=== PATIENT | male | born 1940 | race Caucasian/White ===

== ENCOUNTER 2016-11-19 12:06 | Observation (INO) | payer MEDICARE, OTHER ==
[2016-11-19] MEDS ORDERED: Sodium Chloride 0.9% 1,000 ML IV SCH ×2 (13:00→14:15)
[2016-11-19] MEDS ORDERED: Morphine 2 MG/ML Syringe IVPUSH PRN (16:25)
[2016-11-19] MEDS ORDERED: Ondansetron 4 MG/2 ML SDV IV PRN (16:25)
[2016-11-19] MEDS ORDERED: Ondansetron 4 MG Tab.DIS PO PRN (16:25)
[2016-11-19] MEDS ORDERED: Acetaminophen/oxyCODONE 325-5 MG Tab PO PRN (16:25)
[2016-11-19] MEDS ORDERED: Albuterol 0.083% 2.5 MG/3 ML Neb Soln NEB PRN (16:25)
[2016-11-19] MEDS ORDERED: Albuterol 8 GM Inhaler INH PRN (16:31)
[2016-11-19] MEDS ORDERED: guaiFENesin/Dextromethorphan 100-10 MG/5 ML Soln 5 ML Cup PO PRN (16:31)
[2016-11-19] MEDS ORDERED: Loperamide 2 MG Cap PO SCH (16:45)
[2016-11-19] MEDS ORDERED: Enoxaparin 40 MG/0.4 ML Syringe SUBCUT SCH (17:15)
--- NOTE | 2016-11-19 18:35 | PCM.HP ---
H&P History of Present Illness - General Date of Service: 11/19/16 Admit Problem/Dx: Admission Diagnosis/Problem Admission Diagnosis/Problem Enteritis Source of Information: Patient, Old Records, Provider History Limitations: Reports: Altered Mental Status, Other (lack of records) - History of Present Illness Initial Comments - Free Text/Narative: the patient is a 75-year-old male with dementia who lives in a memory care unit apparently has had a couple day history of nausea vomiting and profuse diarrhea. He was brought into the emergency department today for further evaluation and treatment. History is extremely limited by patient's dementia and a lack of records from the nursing facility. per emergency room provider, the patient has had a couple of days of nausea, vomiting, and profuse watery diarrhea. He hasn't been complaining of abdominal pain. No fevers. No record of recent antibiotics. The patient is comfort cares at the memory care unit. Polst was reviewed by myself and indicates DNR/DNI with comfort cares and only IV or IM antibiotic treatment and food and liquids by mouth and IV fluid administration. patient currently is sitting in the exam room with a tray of liquid and is taking some Jell-O and broth. Says he feels a little nauseated but much improved. He denies chest pain, shortness of breath, sinus congestion, cough, abdominal pain, lower extremity pain. Says the diarrhea has been profuse and watery. Denies fevers, chills, sweats. Back Pain Score (Numeric/FACES): 5 - Related Data Allergies/Adverse Reactions: Allergies Allergy/AdvReac Type Severity Reaction Status Date / Time acetaminophen Allergy Abdominal Verified 11/19/16 13:06 [From Darvocet-N] Pain hydrocodone Allergy Abdominal Verified 11/19/16 13:06 Pain oxycodone Allergy Abdominal Verified 11/19/16 13:06 Pain propoxyphene Allergy Abdominal Verified 11/19/16 13:06 [From Darvocet-N] Pain valdecoxib [From Bextra] Allergy Abdominal Verified 11/19/16 13:06 Pain Home Medications: Home Meds Albuterol [IJD: Ventolin HFA] 2 puff INH Q4HR PRN 11/19/16 [History] Aspirin [Ecotrin] 325 mg PO BID 11/19/16 [History] Citalopram [Citalopram HBr] 20 mg PO DAILY 11/19/16 [History] Dextromethorphan/guaiFENesin [Robitussin DM] 10 ml PO ASDIRECTED PRN 11/19/16 [ History] Donepezil HCl [Aricept] 10 mg PO DAILY 11/19/16 [History] Furosemide [Lasix] 40 mg PO DAILY 11/19/16 [History] Ketotifen [Ketotifen 0.025% Ophth Soln] 1 drop EYEBOTH BID 11/19/16 [History] Levothyroxine [Synthroid] 50 mcg PO DAILY 11/19/16 [History] Loperamide [Imodium] 2 mg PO ASDIRECTED MDD 4 11/19/16 [History] Omeprazole 20 mg PO BID 11/19/16 [History] PHENobarbital [Phenobarbital] 97.2 mg PO BID 11/19/16 [History] Potassium Chloride [Klor-Con 10] 20 meq PO DAILY 11/19/16 [History] Simvastatin [Zocor] 40 mg PO DAILY 11/19/16 [History] risperiDONE [Risperdal] 0.25 mg PO BID 11/19/16 [History] Past Medical History Cardiovascular History: Reports: High Cholesterol Respiratory History: Reports: COPD Gastrointestinal History: Reports: GI Bleed Neurological History: Reports: Alzheimers Disease Psychiatric History: Reports: Anxiety, Depression, Other (See Below) Other Psychiatric History: delusional disorders Endocrine/Metabolic History: Reports: Hypothyroidism - Infectious Disease History Infectious Disease History: Reports: Chicken Pox - Past Surgical History Cardiovascular Surgical History: Reports: None Respiratory Surgical History: Reports: None Neurological Surgical History: Reports: None Social & Family History - Family History Family Medical History: Noncontributory - Tobacco Use Smoking Status *Q: Former Smoker Used Tobacco, but Quit: Yes Month Tobacco Last Used: November Second Hand Smoke Exposure: No - Caffeine Use Caffeine Use: Reports: None - Recreational Drug Use Recreational Drug Use: No H&P Review of Systems - Review of Systems: Review Of Systems: ROS reveals no pertinent complaints other than HPI. Exam - Exam Exam: See Below - Vital Signs Vital Signs: Last Vital Signs Temp 37.2 C 11/19/16 16:25 Pulse 95 11/19/16 16:25 Resp 20 11/19/16 16:25 BP 138/72 11/19/16 16:25 Pulse Ox 92 L 11/19/16 16:25 Weight: 100.244 kg - Exam General: Alert, Cooperative, Other (oriented to person only. Does not know the year, month, date, or where he is at.) HEENT: PERRLA, Mucosa Moist & [place], Pupils Equal, Pupils Reactive Neck: Supple Lungs: Clear to Auscultation, Normal Respiratory Effort Cardiovascular: Regular Rate, Regular Rhythm, Normal S1, Normal S2 GI/Abdominal Exam: Normal Bowel Sounds, Soft, Non-Tender, No Distention Extremities: Pedal Edema (trace edema. Currently has support hose in place.) Skin: Warm, Dry, Intact Psychiatric: Alert, Normal Affect, Normal Mood - Patient Data Result Diagrams: 11/19/16 13:40 11/19/16 13:40 *Q Meaningful Use (ADM) - VTE *Q VTE Criteria *Q: - Stroke *Q Stroke Criteria *Q: - AMI *Q AMI Criteria *Q: - Problem List (1) Gastroenteritis SNOMED Code(s): 86688840 ICD Code: K52.9 - NONINFECTIVE GASTROENTERITIS AND COLITIS, UNSPECIFIED Status: Acute Current Visit: Yes Problem Details: patient appears to be recovering well with IV fluids and currently taking by mouth liquids. C. difficile, stool culture, currently pending. Continue to monitor. Will watch IV fluids for fluid overload. (2) Dementia SNOMED Code(s): 19541919 ICD Code: F03.90 - UNSPECIFIED DEMENTIA WITHOUT BEHAVIORAL DISTURBANCE Status: Acute Current Visit: Yes Problem Details: continue home medications. I do question if a few of these medications might be discontinued such as simvastatin and the aspirin given the patient's CODE STATUS and preference for comfort cares as simvastatin is not likely contributing anything to his overall status. (3) Depression with anxiety SNOMED Code(s): 460140366 ICD Code: F41.8 - OTHER SPECIFIED ANXIETY DISORDERS Status: Acute Current Visit: Yes Problem Details: currently stable. Continue to monitor. (4) Edema SNOMED Code(s): 567697745 ICD Code: R60.9 - EDEMA, UNSPECIFIED Status: Acute Current Visit: Yes Problem Details: currently stable. Monitor with fluid intake. (5) GERD (gastroesophageal reflux disease) SNOMED Code(s): 846954282 ICD Code: K21.9 - GASTRO-ESOPHAGEAL REFLUX DISEASE WITHOUT ESOPHAGITIS Status: Acute Current Visit: Yes Problem Details: restart omeprazole when patient is able to tolerate. (6) Hyperlipidemia SNOMED Code(s): 93194384 ICD Code: E78.5 - HYPERLIPIDEMIA, UNSPECIFIED Status: Acute Current Visit : Yes Problem Details: Should no longer be treated given the patient's current status and comfort cares request. We'll discuss this with family at the first opportunity. Problem List Initiated/Reviewed/Updated: Yes Orders Last 24hrs: Active Orders 24 hr Category Date Time Status Oxygen Therapy [RC] PRN Care 11/19/16 16:25 Active RT Aerosol Therapy [RC] ASDIRECTED Care 11/19/16 16:30 Active VTE/DVT Education [RC] Per Unit Routine Care 11/19/16 16:25 Active Vital Signs [RC] Q4H Care 11/19/16 16:25 Active Clear Liquid Diet [DIET] Diet 11/19/16 Dinner Ordered COMPREHENSIVE METABOLIC PN,CMP [CHEM] AM Lab 11/20/16 05:11 Ordered MAGNESIUM [CHEM] Routine Lab 11/19/16 16:25 Ordered TROPONIN I [CHEM] Stat Lab 11/19/16 16:25 Ordered Acetaminophen/oxyCODONE [Percocet 325-5 MG] Med 11/19/16 16:25 Active 1 tab PO Q4H PRN Albuterol [Proventil Neb Soln] Med 11/19/16 16:25 Pending 2.5 mg NEB Q2H PRN Albuterol [Ventolin HFA] Med 11/19/16 16:31 Ordered DOSE gm INH Q4HR PRN Aspirin [Ecotrin] Med 11/19/16 21:00 Ordered 325 mg PO BID Citalopram [Celexa] Med 11/20/16 09:00 Ordered 20 mg PO DAILY Dextromethorphan/guaiFENesin [Robitussin DM] Med 11/19/16 16:31 Ordered 10 ml PO ASDIRECTED PRN Donepezil [Aricept] Med 11/19/16 16:45 Ordered 10 mg PO DAILY Enoxaparin [Lovenox] Med 11/19/16 17:15 Active 40 mg SUBCUT DAILY Ketotifen [Ketotifen 0.025% Ophth Soln] Med 11/19/16 16:45 Ordered DOSE ml EYEBOTH BID Lactated Ringers [Ringers, Lactated] 1,000 ml Med 11/19/16 18:00 Pending IV 5XDAY Levothyroxine [Synthroid] Med 11/19/16 16:45 Ordered 50 mcg PO DAILY Loperamide [Imodium] Med 11/19/16 16:45 Ordered 2 mg PO ASDIRECTED Morphine Med 11/19/16 16:25 Active 1 mg IVPUSH Q2H PRN Omeprazole [Omeprazole] Med 11/19/16 16:45 Ordered 20 mg PO BID Ondansetron [Zofran ODT] Med 11/19/16 16:25 Ordered 4 mg PO Q6H PRN Ondansetron [Zofran] Med 11/19/16 16:25 Active 4 mg IV Q6H PRN PHENobarbital [Phenobarbital] Med 11/19/16 16:45 Ordered 97.2 mg PO BID Potassium Chloride [Klor-Con 10] Med 11/19/16 16:45 Ordered 20 meq PO DAILY Simvastatin [Zocor] Med 11/20/16 09:00 Ordered 40 mg PO DAILY risperiDONE [RisperiDAL] Med 11/19/16 16:45 Ordered 0.25 mg PO BID Resuscitation Status Routine Resus Stat 11/19/16 16:25 Ordered Medication Orders Albuterol (Proventil Neb Soln) 2.5 mg NEB Q2H PRN PRN Reason: Shortness Of Breath/wheezing Albuterol (Ventolin Hfa) gm INH Q4HR PRN PRN Reason: Cough Aspirin (Ecotrin) 325 mg PO BID [facility] Citalopram Hydrobromide (Celexa) 20 mg PO DAILY [facility] Donepezil HCl (Aricept) 10 mg PO DAILY [facility] Enoxaparin Sodium (Lovenox) 40 mg SUBCUT DAILY [facility] Guaifenesin/Phenylephrine HCl (Robitussin Dm) 10 ml PO ASDIRECTED PRN PRN Reason: Cough Sodium Chloride (Normal Saline) 1,000 mls @ 999 mls/hr IV ASDIRECTED [facility] Last Admin: 11/19/16 13:00 Dose: 999 mls/hr Sodium Chloride (Normal Saline) 1,000 mls @ 200 mls/hr IV ASDIRECTED [facility] Last Admin: 11/19/16 14:12 Dose: 200 mls/hr Lactated Ringer's (Ringers, Lactated) 1,000 mls @ 150 mls/hr IV 5XDAY [facility] Ketotifen Fumarate (Ketotifen 0.025% Ophth Soln) ml EYEBOTH BID [facility] Levothyroxine Sodium (Synthroid) 50 mcg PO DAILY [facility] Loperamide HCl (Imodium) 2 mg PO ASDIRECTED [facility] Morphine Sulfate (Morphine) 1 mg IVPUSH Q2H PRN PRN Reason: Pain (severe 7-10) Non-Formulary Medication (Omeprazole [Omeprazole]) 20 mg PO BID [facility] Non-Formulary Medication (Phenobarbital [Phenobarbital]) 97.2 mg PO BID [facility] Ondansetron HCl (Zofran Odt) 4 mg PO Q6H PRN PRN Reason: nausea, able to take PO Ondansetron HCl (Zofran) 4 mg IV Q6H PRN PRN Reason: Nausea/Vomiting Oxycodone/Acetaminophen (Percocet 325-5 Mg) 1 tab PO Q4H PRN PRN Reason: Pain (moderate 4-6) Potassium Chloride (Klor-Con 10) 20 meq PO DAILY [facility] Risperidone (Risperidal) 0.25 mg PO BID [facility] Simvastatin (Zocor) 40 mg PO DAILY [facility] Assessment/Plan Comment:: CODE STATUS reviewed from the patient's POLST documented and the patient is Comfort Care is DNR/DNI and IV/IM antibiotic treatment for comfort as well as IV fluid administration for comfort.
[2016-11-19] MEDS: Lactated Ringers 1,000 ML IV SCH (20:05)
[2016-11-19] MEDS: OMEPRAZOLE 20 MG PO SCH ×2 (20:21→21:04)
[2016-11-19] MEDS: DONEPEZIL 10 MG PO SCH ×2 (20:38→20:41)
[2016-11-19] MEDS: RISPERIDONE 0.25 MG PO SCH ×2 (20:44→21:06)
[2016-11-19] MEDS: POTASSIUM CHLORIDE 10 MEQ PO SCH (20:56)
[2016-11-19] MEDS ORDERED: Aspirin 325 MG Tab.EC PO SCH ×2 (21:00)
[2016-11-19] MEDS: Ketotifen 0.025% Ophth Soln 5 ML Bottle EYEBOTH SCH ×2 (22:18→22:20)
[2016-11-19] MEDS ORDERED: Pantoprazole 40 MG Vial IVPUSH ONE (22:43)
[2016-11-20] MEDS: Lactated Ringers 1,000 ML IV SCH (03:19)
--- NOTE | 2016-11-20 03:59 | ER ---
DATE SEEN: 11/19/2016 HISTORY OF PRESENT ILLNESS: This assisted living patient comes into the hospital with a history of diarrhea, two days duration, and vomiting once. Had diarrhea since last night. The patient was seen at 1313 hours. He has mild dementia. He is a poor historian. He was able to tell me about his diarrhea. He has depression, congestive heart failure, hypothyroidism treated, seizure disorder treated, COPD treated, dyslipidemia treated. ALLERGIES: Hydrocodone, oxycodone, propoxyphene, and valdecoxib for bone pain. SOCIAL HISTORY: The patient is retired. REVIEW OF SYSTEMS: I was unable to obtain review of systems from him. PHYSICAL EXAMINATION: GENERAL: Alert man who does respond to questions. Has a gravelly voice. HEENT: His head is in flexion. Hearing is slightly decreased. Pharynx without abnormality. Lower teeth are absent. NECK: No jugular venous distention. No tenderness in neck. No cervical adenopathy. No bruits. LUNGS: There are coarse breath sounds. Rales at the bases posteriorly. Otherwise clear anteriorly and posteriorly. HEART: S1, S2. No irregular rate and rhythm. ABDOMEN: Soft. No abdominal discomfort, he has question of right upper quadrant and right lower quadrant but he has left upper quadrant and left lower quadrant mild discomfort. Mild guarding. No rebound. Abdomen not distended. Occasional low-pitched tingle. No pipe tapping sounds. LOWER EXTREMITIES: Without edema. Deep tendon reflexes hypoactive in upper and lower extremities. He can extend his arm. Hand drug room operator is good. Hearing is slightly decreased but intact. Gag is intact. No paresis or weakness of upper and lower extremities. LABORATORY FINDINGS: Calcium is decreased to 7.9, albumin is 3.7. So the calcium is truly low, rule out PTH abnormality. His BUN and creatinine ratio is elevated at 27.5. BUN is 22, creatinine is 0.8. Sodium 134, potassium 3.4, chloride 95, bicarb 28, and glucose 112. White count 11,800, PMNs 89, lymphocytes 3, bandemia noted at 5. He had a CAT scan performed and this demonstrated probable infiltrates of the liver, post cholecystectomy; normal common bile duct, post cholecystectomy. (ultrasound performed on 02/18/2015 and he has had a previous transthoracic echocardiogram performed 07/01/2015 demonstrated ejection fraction 55% to 60%, normal right ventricular systolic function, left ventricular diastolic function is mildly abnormal, grade 1; mild mitral valvular annular calcification; mitral regurgitation. Mild pulmonary hypertension. Right ventricular systolic pressure 40-45 mmHg, inferior vena cava size normal, and collapsibility is less than 50%. ASSESSMENT: 1. Mild dehydration. 2. Gastroenteritis. PLAN: Since the patient is at assisted living, he may not be able to have IVs where he lives (will be placed in hospital for further diuresing and treatment). Calcium 7.9. We cannot rule out hypoparathyroidism. No suggestion of anaerobic abnormality as his lactate is 1.2. Continue his aspirin. Continue IV therapy and Zofran. Status discussed with Dr. Mata, hospitalist. Other diagnoses cholecystectomy, hyponatremia, hypokalemia, dehydration, bandemia of 5%. /[id number] ZARINA/JAIRO
[2016-11-20] MEDS ORDERED: Prochlorperazine 25 MG Supp RECTAL PRN (07:55)
[2016-11-20] MEDS ORDERED: Pantoprazole 40 MG Vial IVPUSH SCH (08:00)
[2016-11-20] MEDS: LEVOTHYROXINE 50 MCG PO SCH (08:26)
[2016-11-20] MEDS: OMEPRAZOLE 20 MG PO SCH (08:26)
[2016-11-20] MEDS: DONEPEZIL 10 MG PO SCH (08:27)
[2016-11-20] MEDS: Ketotifen 0.025% Ophth Soln 5 ML Bottle EYEBOTH SCH ×2 (08:28→21:17)
[2016-11-20] MEDS: CITALOPRAM 20 MG PO SCH (08:28)
[2016-11-20] MEDS: RISPERIDONE 0.25 MG PO SCH ×2 (08:30→21:23)
[2016-11-20] MEDS: POTASSIUM CHLORIDE 10 MEQ PO SCH (08:40)
[2016-11-20] MEDS: Dextrose 5%-0.9% NaCl with KCl 1,000 ML IV SCH ×2 (08:46→19:15)
[2016-11-20] MEDS ORDERED: SIMVASTATIN 40 MG PO SCH (09:00)
[2016-11-20] MEDS ORDERED: Pantoprazole 40 MG Vial IVPUSH ONE (16:15)
--- NOTE | 2016-11-20 17:19 | PCM.PN ---
- General Info Date of Service: 11/20/16 Subjective Update: Patient feeling better. He had a lot of vomiting this morning and had an episode of hematemesis or coffee-ground emesis which was Hemoccult positive. He is unhappy about not being able to eat. Had received Lovenox and I suspect this was the reason for his coffee-ground emesis. Discontinued both Lovenox and aspirin and patient is currently nothing by mouth with sips and ice chips only. He's had no further vomiting. He denies abdominal pain at this time. Denies chest pain and shortness of breath. No fevers. Functional Status: Reports: Pain Controlled, Ambulating, Urinating - Patient Data Vitals - Most Recent: Last Vital Signs Temp 36.6 C 11/20/16 13:00 Pulse 87 11/20/16 13:00 Resp 20 11/20/16 13:00 BP 156/86 H 11/20/16 13:00 Pulse Ox 92 L 11/20/16 13:00 Weight - Most Recent: 100.244 kg I&O - Last 24 Hours: Intake & Output 11/20/16 11/20/16 11/20/16 06:59 14:59 22:59 Intake Total 1306 Output Total 200 225 Balance 1106 -225 Lab Results Last 24 Hours: Laboratory Results - last 24 hr 11/19/16 11/19/16 11/20/16 Range/Units 19:25 19:25 06:45 Sodium 137 (135-145) mmol/L Potassium 3.2 L (3.5-5.3) mmol/L Chloride 103 D (100-110) mmol/L Carbon Dioxide 28 (23-29) mmol/L BUN 24 H (8-23) mg/dL Creatinine 0.6 (0.6-1.3) mg/dL Est Cr Clr Drug Dosing 102.92 mL/min Estimated GFR (MDRD) > 60 (>60) BUN/Creatinine Ratio 40.0 H (9-20) Glucose 110 (80-116) mg/dL Calcium 7.6 L (8.6-10.2) mg/dL Magnesium 1.9 (1.8-2.5) mg/dL Total Bilirubin 0.4 (0.1-1.3) mg/dL AST 22 D (5-27) IU/L ALT 19 D (14-26) IU/L Alkaline Phosphatase 74 (56-112) IU/L Troponin I < 0.01 L (0.02-0.06) NG/ML Total Protein 7.0 (6.0-8.0) g/dL Albumin 3.1 L (3.2-4.6) g/dL Globulin 3.9 g/dL Albumin/Globulin Ratio 0.8 Siddhartha Results Last 24 Hours: Microbiology 11/19/16 22:24 Gastric Occult Blood - Final Gastric Fluid Med Orders - Current: Current Medications Albuterol (Proventil Neb Soln) 2.5 mg NEB Q2H PRN PRN Reason: Shortness Of Breath/wheezing Albuterol (Ventolin Hfa) 0 gm INH Q4H PRN PRN Reason: Cough Citalopram Hydrobromide (Celexa) 20 mg PO DAILY [facility] Last Admin: 11/20/16 08:28 Dose: 20 mg Donepezil HCl (Aricept) 10 mg PO DAILY [facility] Last Admin: 11/20/16 08:27 Dose: 10 mg Guaifenesin/Phenylephrine HCl (Robitussin Dm) 10 ml PO ASDIRECTED PRN PRN Reason: Cough Potassium Chloride/Dextrose/Sod Cl (D5 Ns With 20 Meq Kcl) 1,000 mls @ 100 mls/ hr IV ASDIRECTED [facility] Last Admin: 11/20/16 08:46 Dose: 100 mls/hr Ketotifen Fumarate (Ketotifen 0.025% Ophth Soln) 0 ml EYEBOTH BID [facility] Last Admin: 11/20/16 08:28 Dose: 1 drop Levothyroxine Sodium (Synthroid) 50 mcg PO ACBREAKFAST [facility] Last Admin: 11/20/16 08:26 Dose: 50 mcg Loperamide HCl (Imodium) 2 mg PO ASDIRECTED [facility] Morphine Sulfate (Morphine) 1 mg IVPUSH Q2H PRN PRN Reason: Pain (severe 7-10) Last Admin: 11/20/16 08:42 Dose: 1 mg (Phenobarbital [ Phenobarbital] 97.2 Mg)Own Med 97.2 mg PO BID [facility] Last Admin: 11/20/16 08:29 Dose: 97.2 mg Ondansetron HCl (Zofran Odt) 4 mg PO Q6H PRN PRN Reason: nausea, able to take PO Ondansetron HCl (Zofran) 4 mg IV Q6H PRN PRN Reason: Nausea/Vomiting Last Admin: 11/19/16 22:07 Dose: 4 mg Oxycodone/Acetaminophen (Percocet 325-5 Mg) 1 tab PO Q4H PRN PRN Reason: Pain (moderate 4-6) Pantoprazole Sodium (Protonix Iv) 40 mg IVPUSH Q24H [facility] Potassium Chloride (Klor-Con 10) 20 meq PO DAILY [facility] Last Admin: 11/20/16 08:40 Dose: 20 meq Prochlorperazine Maleate (Compro) 25 mg RECTAL Q12H PRN PRN Reason: Vomiting Risperidone (Risperidal) 0.25 mg PO BID [facility] Last Admin: 11/20/16 08:30 Dose: 0.25 mg Simvastatin (Zocor) 40 mg PO DAILY [facility] Last Admin: 11/20/16 08:30 Dose: 40 mg Discontinued Medications Aspirin (Ecotrin) 325 mg PO BID [facility] Aspirin (Ecotrin) 325 mg PO BID [facility] Last Admin: 11/19/16 22:07 Dose: Not Given Enoxaparin Sodium (Lovenox) 40 mg SUBCUT DAILY [facility] Last Admin: 11/19/16 20:19 Dose: 40 mg Sodium Chloride (Normal Saline) 1,000 mls @ 999 mls/hr IV ASDIRECTED [facility] Last Admin: 11/19/16 13:00 Dose: 999 mls/hr Sodium Chloride (Normal Saline) 1,000 mls @ 200 mls/hr IV ASDIRECTED [facility] Last Admin: 11/19/16 14:12 Dose: 200 mls/hr Lactated Ringer's (Ringers, Lactated) 1,000 mls @ 150 mls/hr IV ASDIRECTED [facility] Last Admin: 11/20/16 03:19 Dose: 150 mls/hr (Omeprazole [ Omeprazole] 20 Mg) Own Med 20 mg PO BID [facility] Last Admin: 11/20/16 08:26 Dose: 20 mg Pantoprazole Sodium (Protonix Iv) 40 mg IVPUSH ONETIME ONE Stop: 11/19/16 22:44 Last Admin: 11/19/16 23:41 Dose: 40 mg Pantoprazole Sodium (Protonix Iv) 40 mg IVPUSH Q24H [facility] Pantoprazole Sodium (Protonix Iv) 40 mg IVPUSH ONETIME ONE Stop: 11/20/16 16:16 Last Admin: 11/20/16 17:06 Dose: 40 mg - Exam General: Alert, Cooperative, No Acute Distress HEENT: Pupils Equal, Pupils Reactive Neck: Supple Lungs: Clear to Auscultation, Normal Respiratory Effort Cardiovascular: Regular Rate, Regular Rhythm, No Murmurs GI/Abdominal Exam: Normal Bowel Sounds, Soft, Non-Tender, No Distention Back Exam: Normal Inspection Extremities: Normal Inspection, No Pedal Edema Peripheral Pulses: 0: Carotid (R) Skin: Warm, Dry, Intact Psy/Mental Status: Alert - Problem List & Annotations (1) Coffee ground emesis SNOMED Code(s): 460987388 Code(s): K92.0 - HEMATEMESIS Status: Acute Current Visit: Yes Annotation/Comment:: Suspect this was related to the patient's previous aspirin use and may have actually caused his presenting complaint. Lovenox has unmasked this as well. Patient may have an ulcer as he does tell me today that he has frequent heartburn. Recommended PPI, no serial hemoglobins, no coags, given patient's comfort care status will not consult surgery but did recommend nothing by mouth today and we will restart clears and Carafate in the morning. (2) Gastroenteritis SNOMED Code(s): 29682116 Code(s): K52.9 - NONINFECTIVE GASTROENTERITIS AND COLITIS, UNSPECIFIED Status: Acute Current Visit: Yes Annotation/Comment:: No further emesis since nothing by mouth status. Continue to monitor. C. difficile negative. (3) Dementia SNOMED Code(s): 59592132 Code(s): F03.90 - UNSPECIFIED DEMENTIA WITHOUT BEHAVIORAL DISTURBANCE Status: Acute Current Visit: Yes Annotation/Comment:: continue home medications. Plan to discontinue medications not in-line with comfort measures. (4) Depression with anxiety SNOMED Code(s): 655979296 Code(s): F41.8 - OTHER SPECIFIED ANXIETY DISORDERS Status: Acute Current Visit: Yes Annotation/Comment:: currently stable. Continue to monitor. (5) Edema SNOMED Code(s): 278137610 Code(s): R60.9 - EDEMA, UNSPECIFIED Status: Acute Current Visit: Yes Annotation/Comment:: currently stable. Monitor with fluid intake. (6) GERD (gastroesophageal reflux disease) SNOMED Code(s): 429323753 Code(s): K21.9 - GASTRO-ESOPHAGEAL REFLUX DISEASE WITHOUT ESOPHAGITIS Status: Acute Current Visit: Yes Annotation/Comment:: Patient on IV PPI currently. (7) Hyperlipidemia SNOMED Code(s): 80002142 Code(s): E78.5 - HYPERLIPIDEMIA, UNSPECIFIED Status: Acute Current Visit : Yes Annotation/Comment:: Should no longer be treated given the patient's current status and comfort cares request. Patient is [place] of the state with court appointed guardian. We'll discuss this tomorrow with the guardian. (8) Hx of seizure disorder SNOMED Code(s): 393741792 Code(s): Z86.69 - PERSONAL HISTORY OF DIS OF THE NERVOUS SYS AND SENSE ORGANS Status: Acute Current Visit: Yes Annotation/Comment:: Found in the patient's previous records from outpatient that he has at some point in the past had a seizure and this is why he is on the phenobarbital. Was held last night but given this morning. No evidence in his chart that he had had a seizure in his history in the last few years. - Problem List Review Problem List Initiated/Reviewed/Updated: Yes - My Orders Last 24 Hours: My Active Orders 11/19/16 18:44 Code Status [Resuscitation Status] Routine 11/20/16 07:55 Prochlorperazine [Compro] 25 mg RECTAL Q12H PRN 11/20/16 08:00 Dextrose 5%-0.9% NaCl with KCl [D5 NS with 20 mEq KCl] 1,000 ml IV ASDIRECTED 11/20/16 Lunch NPO [Nothing Per Oral Diet] [DIET] 11/21/16 08:00 Pantoprazole [ProTONIX IV] 40 mg IVPUSH Q24H - Plan Plan:: CODE STATUS reviewed from the patient's POLST documented and the patient is Comfort Care is DNR/DNI and IV/IM antibiotic treatment for comfort as well as IV fluid administration for comfort.
[2016-11-21] MEDS: Dextrose 5%-0.9% NaCl with KCl 1,000 ML IV SCH (05:30)
[2016-11-21] MEDS ORDERED: Pantoprazole 40 MG Vial IVPUSH SCH (08:00)
[2016-11-21] MEDS: LEVOTHYROXINE 50 MCG PO SCH (09:18)
[2016-11-21] MEDS: CITALOPRAM 20 MG PO SCH (09:20)
[2016-11-21] MEDS: Ketotifen 0.025% Ophth Soln 5 ML Bottle EYEBOTH SCH (09:22)
[2016-11-21] MEDS: POTASSIUM CHLORIDE 10 MEQ PO SCH (09:24)
[2016-11-21] MEDS: RISPERIDONE 0.25 MG PO SCH (09:26)
--- NOTE | 2016-11-21 11:10 | CR ---
INDICATION: Vomiting. CHEST: AP upright view of the chest 11/19/2016 was compared with 09/23/2007, and revealed elevation of the left hemidiaphragm compared with the previous study. This could be on the basis of subpulmonic effusion, or possibly simply a poor inspiration and should be correlated clinically. The heart appears enlarged emphasized by the poor inspiration. The aorta is tortuous with calcification in the arch. No free air was identified underneath the hemidiaphragm leaves. A definite active infiltrate or effusion was not identified. IMPRESSION: No definite acute process. However, what appears to be a poor inspiration is present with elevation of the left hemidiaphragm likely on the basis of the poor inspiration, but cannot exclude subpulmonic effusion on the left. Findings should be correlated clinically. If effusion is suspected clinically, lateral decubitus chest x-ray with the left side down is recommended for further evaluation. MTDD
--- NOTE | 2016-11-21 14:57 | PCM.DCSUM1 ---
Discharge Summary - Hospital Course Brief History: the patient is a 75-year-old male presented to the emergency department from the [facility] with nausea vomiting and diarrhea. He was admitted for what was presumed to be an infectious or viral gastroenteritis but was found to be guaiac positive and after having received Lovenox for DVT prophylaxis had coffee ground emesis. He was made nothing by mouth and treated for gastritis/ulcer and did very well with this. Because of his comfort care status, no further imaging or scoping was performed. On the day of discharge his diet was advanced without difficulty and he was ready for discharge. - Discharge Data Discharge Date: 11/21/16 Discharge Disposition: DC/Tfer to [place] [id number] Condition: Fair - Discharge Diagnosis/Problem(s) (1) Coffee ground emesis SNOMED Code(s): 829033972 ICD Code: K92.0 - HEMATEMESIS Status: Acute Current Visit: Yes Problem Details: Resolved. Patient tolerating po intake. Stop ASA, discharge on Carafate and PPI therapy for a month. Resume regular diet. (2) Gastroenteritis SNOMED Code(s): 46625723 ICD Code: K52.9 - NONINFECTIVE GASTROENTERITIS AND COLITIS, UNSPECIFIED Status: Acute Current Visit: Yes Problem Details: Unclear whether infectious (viral) or due to ulcer/gastritis. Tx as above. (3) Dementia SNOMED Code(s): 56041792 ICD Code: F03.90 - UNSPECIFIED DEMENTIA WITHOUT BEHAVIORAL DISTURBANCE Status: Acute Current Visit: Yes Problem Details: continue home medications. Plan to discontinue medications not in-line with comfort measures. Qualifiers: Dementia type: Alzheimer's disease (4) Depression with anxiety SNOMED Code(s): 711611074 ICD Code: F41.8 - OTHER SPECIFIED ANXIETY DISORDERS Status: Acute Current Visit: Yes Problem Details: currently stable. Continue to monitor. (5) Edema SNOMED Code(s): 424165134 ICD Code: R60.9 - EDEMA, UNSPECIFIED Status: Acute Current Visit: Yes Problem Details: currently stable. Monitor with fluid intake. (6) GERD (gastroesophageal reflux disease) SNOMED Code(s): 187141048 ICD Code: K21.9 - GASTRO-ESOPHAGEAL REFLUX DISEASE WITHOUT ESOPHAGITIS Status: Acute Current Visit: Yes Problem Details: Patient on IV PPI currently. (7) Hyperlipidemia SNOMED Code(s): 38697125 ICD Code: E78.5 - HYPERLIPIDEMIA, UNSPECIFIED Status: Acute Current Visit : Yes Problem Details: Should no longer be treated given the patient's current status and comfort cares request. Patient is [place] of the state with court appointed guardian. We'll discuss this tomorrow with the guardian. (8) Hx of seizure disorder SNOMED Code(s): 396257569 ICD Code: Z86.69 - PERSONAL HISTORY OF DIS OF THE NERVOUS SYS AND SENSE ORGANS Status: Acute Current Visit: Yes Problem Details: Found in the patient's previous records from outpatient that he has at some point in the past had a seizure and this is why he is on the phenobarbital. Discussed with POA that this could be investigated further and see if really need phenobarbital. This can be done outpt. - Patient Summary/Data Hospital Course: after the Lovenox was stopped and the patient made nothing by mouth, the patient did well throughout his hospital course. No further nausea or vomiting. No diarrhea. No date of discharge sitting up in the chair, tolerating clear liquids without difficulty. Vital signs were stable. He denied chest pain or shortness of breath. He denied abdominal pain, nausea, or vomiting. He was able to ambulate with assistance because of the IV pole. On exam, patient is in no distress. Visit reticulocyte, normocephalic. Pupils round and reactive. Lungs clear to auscultation, heart tones regular with normal rate and rhythm, no murmurs. Abdomen is soft, nontender, nondistended. Bowel sounds are active. No pedal edema. Assessment/plan: Nausea, vomiting, diarrhea likely secondary to gastritis/ulcer secondary to high -dose aspirin therapy. Recommend we stop the aspirin. Patient will be discharged home on twice a day PPI therapy and Carafate 4 times a day to be taken for 3 days. After that point the Carafate can be stopped and he can continue his home dose of PPI. #2 hyperlipidemia. Given the patient's dementia would recommend we stop his statin and I discussed this with his power of senior trial attorney and she was in agreement. #3 question whether or not the patient still is benefiting from the phenobarbital. Was unable to get a clear picture of what his seizure history was ablated see note of convulsions on a previous problem list. We'll defer this question to the outpatient provider. #4 patient will return to his memory care facility with his continued CODE STATUS of DNR/DNI and comfort cares. - Patient Instructions Diet: Usual Diet as Tolerated Activity: As Tolerated - Discharge Plan Prescriptions/Med Rec: Sucralfate [Carafate] 1 gm PO ACBED 30 Days #120 tab Home Medications: Home Meds Albuterol [IJD: Ventolin HFA] 2 puff INH Q4HR PRN 11/19/16 [History] Citalopram [Citalopram HBr] 20 mg PO DAILY 11/19/16 [History] Dextromethorphan/guaiFENesin [Robitussin DM] 10 ml PO ASDIRECTED PRN 11/19/16 [ History] Donepezil HCl [Aricept] 10 mg PO DAILY 11/19/16 [History] Furosemide [Lasix] 40 mg PO DAILY 11/19/16 [History] Ketotifen [Ketotifen 0.025% Ophth Soln] 1 drop EYEBOTH BID 11/19/16 [History] Levothyroxine [Synthroid] 50 mcg PO DAILY 11/19/16 [History] Loperamide [Imodium] 2 mg PO ASDIRECTED MDD 4 11/19/16 [History] Omeprazole 20 mg PO BID 11/19/16 [History] PHENobarbital [Phenobarbital] 97.2 mg PO BID 11/19/16 [History] Potassium Chloride [Klor-Con 10] 20 meq PO DAILY 11/19/16 [History] risperiDONE [Risperdal] 0.25 mg PO BID 11/19/16 [History] Sucralfate [Carafate] 1 gm PO ACBED 30 Days #120 tab 11/21/16 [Rx] Forms: ED Department Discharge Referrals: Ottoniel Diaz MD [Primary Care Provider] - - Discharge Summary/Plan Comment DC Time >30 min.: Yes - Patient Data Vitals - Most Recent: Last Vital Signs Temp 36.9 C 11/21/16 02:30 Pulse 69 11/21/16 12:00 Resp 17 11/21/16 12:00 BP 154/82 H 11/21/16 12:00 Pulse Ox 93 L 11/21/16 12:00 Weight - Most Recent: 100.244 kg I&O - Last 24 hours: Intake & Output 11/20/16 11/21/16 11/21/16 22:59 06:59 14:59 Intake Total 476 827 Output Total 600 Balance 476 227 Lab Results - Last 24 hrs: Laboratory Results - last 24 hr 11/20/16 11/21/16 11/21/16 Range/Units 21:00 06:40 06:40 WBC 5.2 (4.5-12.0) X10-3/uL RBC 3.75 L (4.30-5.75) x10(6)uL Hgb 11.3 L D (11.5-15.5) g/dL Hct 33.2 (30.0-51.3) % MCV 88.5 (80-96) fL MCH 30.1 (27.7-33.6) pg MCHC 34.0 (32.2-35.4) g/dL RDW 12.9 (11.5-15.5) % Plt Count 215 (125-369) X10(3)uL MPV 7.4 (7.4-10.4) fL Add Manual Diff Yes Neutrophils % (Manual) 77 (46-82) % Band Neutrophils % 2 (0-6) % Lymphocytes % (Manual) 15 (13-37) % Monocytes % (Manual) 6 (4-12) % Sodium 140 (135-145) mmol/L Potassium 3.5 (3.5-5.3) mmol/L Chloride 105 (100-110) mmol/L Carbon Dioxide 29 (23-29) mmol/L BUN 15 (8-23) mg/dL Creatinine 0.6 (0.6-1.3) mg/dL Est Cr Clr Drug Dosing 102.92 mL/min Estimated GFR (MDRD) > 60 (>60) BUN/Creatinine Ratio 25.0 H (9-20) Glucose 104 (80-116) mg/dL Calcium 7.6 L (8.6-10.2) mg/dL Total Bilirubin 0.3 (0.1-1.3) mg/dL AST 24 (5-27) IU/L ALT 21 D (14-26) IU/L Alkaline Phosphatase 62 (56-112) IU/L Total Protein 6.3 (6.0-8.0) g/dL Albumin 3.0 L (3.2-4.6) g/dL Globulin 3.3 g/dL Albumin/Globulin Ratio 0.9 Urine Color Yellow (YELLOW) Urine Appearance Slightly cloudy (CLEAR) Urine pH 6.0 (5.0-6.5) Ur Specific Hext 1.015 (1.010-1.025) Urine Protein Negative (NEGATIVE) mg/dL Urine Glucose (UA) Normal (NEGATIVE) mg/dL Urine Ketones Negative (NEGATIVE) mg/dL Urine Occult Blood Large H (NEGATIVE) Urine Nitrite Negative (NEGATIVE) Urine Bilirubin Small H (NEGATIVE) Urine Urobilinogen Normal (NEGATIVE) mg/dL Ur Leukocyte Esterase Negative (NEGATIVE) Urine RBC >100 H (0) Urine WBC 0-5 (0) Ur Squamous Epith Cells Few H (NS,R,O) Urine Bacteria Few H (NS) Med Orders - Current: Current Medications Albuterol (Proventil Neb Soln) 2.5 mg NEB Q2H PRN PRN Reason: Shortness Of Breath/wheezing Albuterol (Ventolin Hfa) 0 gm INH Q4H PRN PRN Reason: Cough Citalopram Hydrobromide (Celexa) 20 mg PO DAILY [facility] Last Admin: 11/21/16 09:20 Dose: 20 mg Donepezil HCl (Aricept) 10 mg PO BEDTIME [facility] Guaifenesin/Phenylephrine HCl (Robitussin Dm) 10 ml PO ASDIRECTED PRN PRN Reason: Cough Potassium Chloride/Dextrose/Sod Cl (D5 Ns With 20 Meq Kcl) 1,000 mls @ 100 mls/ hr IV ASDIRECTED [facility] Stop: 11/21/16 15:20 Last Admin: 11/21/16 05:30 Dose: 100 mls/hr Potassium Chloride/Dextrose/Sod Cl (D5 Ns With 20 Meq Kcl) 1,000 mls @ 100 mls/ hr IV Q10H [facility] Ketotifen Fumarate (Ketotifen 0.025% Ophth Soln) 0 ml EYEBOTH BID [facility] Last Admin: 11/21/16 09:22 Dose: 1 drop Levothyroxine Sodium (Synthroid) 50 mcg PO ACBREAKFAST [facility] Last Admin: 11/21/16 09:18 Dose: 50 mcg Loperamide HCl (Imodium) 2 mg PO ASDIRECTED [facility] Morphine Sulfate (Morphine) 1 mg IVPUSH Q2H PRN PRN Reason: Pain (severe 7-10) Last Admin: 11/20/16 08:42 Dose: 1 mg (Phenobarbital [ Phenobarbital] 97.2 Mg)Own Med 97.2 mg PO BID [facility] Last Admin: 11/21/16 09:25 Dose: 97.2 mg Ondansetron HCl (Zofran Odt) 4 mg PO Q6H PRN PRN Reason: nausea, able to take PO Ondansetron HCl (Zofran) 4 mg IV Q6H PRN PRN Reason: Nausea/Vomiting Last Admin: 11/19/16 22:07 Dose: 4 mg Oxycodone/Acetaminophen (Percocet 325-5 Mg) 1 tab PO Q4H PRN PRN Reason: Pain (moderate 4-6) Pantoprazole Sodium (Protonix Iv) 40 mg IVPUSH Q24H [facility] Last Admin: 11/21/16 09:44 Dose: 40 mg Potassium Chloride (Klor-Con 10) 20 meq PO DAILY [facility] Last Admin: 11/21/16 09:24 Dose: 20 meq Prochlorperazine Maleate (Compro) 25 mg RECTAL Q12H PRN PRN Reason: Vomiting Risperidone (Risperidal) 0.25 mg PO BID [facility] Last Admin: 11/21/16 09:26 Dose: 0.25 mg Simvastatin (Zocor) 40 mg PO BEDTIME [facility] Discontinued Medications Aspirin (Ecotrin) 325 mg PO BID [facility] Aspirin (Ecotrin) 325 mg PO BID [facility] Last Admin: 11/19/16 22:07 Dose: Not Given Donepezil HCl (Aricept) 10 mg PO DAILY [facility] Last Admin: 11/20/16 08:27 Dose: 10 mg Enoxaparin Sodium (Lovenox) 40 mg SUBCUT DAILY [facility] Last Admin: 11/19/16 20:19 Dose: 40 mg Sodium Chloride (Normal Saline) 1,000 mls @ 999 mls/hr IV ASDIRECTED [facility] Last Admin: 11/19/16 13:00 Dose: 999 mls/hr Sodium Chloride (Normal Saline) 1,000 mls @ 200 mls/hr IV ASDIRECTED [facility] Last Admin: 11/19/16 14:12 Dose: 200 mls/hr Lactated Ringer's (Ringers, Lactated) 1,000 mls @ 150 mls/hr IV ASDIRECTED [facility] Last Admin: 11/20/16 03:19 Dose: 150 mls/hr (Omeprazole [ Omeprazole] 20 Mg) Own Med 20 mg PO BID [facility] Last Admin: 11/20/16 08:26 Dose: 20 mg Pantoprazole Sodium (Protonix Iv) 40 mg IVPUSH ONETIME ONE Stop: 11/19/16 22:44 Last Admin: 11/19/16 23:41 Dose: 40 mg Pantoprazole Sodium (Protonix Iv) 40 mg IVPUSH Q24H [facility] Pantoprazole Sodium (Protonix Iv) 40 mg IVPUSH ONETIME ONE Stop: 11/20/16 16:16 Last Admin: 11/20/16 17:06 Dose: 40 mg Simvastatin (Zocor) 40 mg PO DAILY [facility] Last Admin: 11/20/16 08:30 Dose: 40 mg *Q Meaningful Use (DIS) - VTE *Q VTE Criteria *Q: - Stroke *Q Stroke Criteria *Q: - AMI *Q AMI Criteria *Q:
[2016-11-21] MEDS ORDERED: Dextrose 5%-0.9% NaCl with KCl 1,000 ML IV SCH (15:30)
[2016-11-21] MEDS ORDERED: DONEPEZIL 10 MG PO SCH (21:00)
[2016-11-21] MEDS ORDERED: SIMVASTATIN 40 MG PO SCH (21:00)
== END 2016-11-21 16:10 ==
LOC: FB.ED 12:06 → FB.MS 16:21
PROVIDERS: ADMIT Emergency Medicine; ATTEND Family Medicine
DX: K92.0 Hematemesis (principal); K52.9 Noninfective gastroenteritis and colitis, unspecified; G30.9 Alzheimer's disease, unspecified; F02.80 Dementia in other diseases classified elsewhere, unspecified severity, without behavioral disturbance, psychotic disturbance, mood disturbance, and anxiety; F41.8 Other specified anxiety disorders; R60.9 Edema, unspecified; K21.9 Gastro-esophageal reflux disease without esophagitis; E78.5 Hyperlipidemia, unspecified; J44.9 Chronic obstructive pulmonary disease, unspecified; Z86.69 Personal history of other diseases of the nervous system and sense organs; Z79.899 Other long term (current) drug therapy; Z88.8 Allergy status to other drugs, medicaments and biological substances; Z79.82 Long term (current) use of aspirin; Z87.891 Personal history of nicotine dependence
CPT/HCPCS: 36415; 71010; 80053; 81001; 82271; 83605; 83735; 84484; 85025; 87015; 87045; 87046; 87324; 87899; 93005; 96361; 96372; 96375; 96376; 99285; A9270; C9113; G0378; J1650; J2270; J2405; J3480; J7040; J7120; 96360; 96374; 99217; 99219; 99224; 99283

== ENCOUNTER 2016-11-22 15:33 | Emergency (ER) | payer MEDICARE, OTHER ==
[2016-11-22] MEDS ORDERED: Haloperidol Lactate 5 MG/ML SDV IVPUSH ONE (16:20)
[2016-11-22] MEDS ORDERED: Sodium Chloride 0.9% 10 ML Syringe FLUSH PRN (16:20)
[2016-11-22] MEDS ORDERED: Sodium Chloride 0.9% 1,000 ML IV SCH (16:30)
--- NOTE | 2016-11-22 16:30 | EDM.PDOC ---
ED HPI GENERAL MEDICAL PROBLEM - General Chief Complaint: Behavioral/Psych Stated Complaint: CONFUSION Time Seen by Provider: 11/22/16 16:00 Source of Information: Reports: Patient, Intermediate Records, Old Records History Limitations: Reports: Altered Mental Status - History of Present Illness INITIAL COMMENTS - FREE TEXT/NARRATIVE: Emir comes to [facility] ED from [facility] memory unit with reported escalating confusional state since discharge from [facility] yesterday. He seems more confused since discharge from hospital yesterday for suspected gastritis w guiac + stools. He has been seenStaff hs entering resident's rooms, and attempting to elope from the unit. Staff have been unable to redirect him. There have been no reported suicidal or homicidal behaviors, threatening behaviors, or noncompliance with orders. He does not have standing orders for dysfunctional behaviors. Emir is a poor historian, disorientated to time, date, and circumstances of ED visit, and cannot respond to current and recent past events with clarity or accuracy. Current information obtained from Elizabeth RN, staff at [facility]. back Pain Score (Numeric/FACES): 5 - Related Data Allergies Allergy/AdvReac Type Severity Reaction Status Date / Time acetaminophen Allergy Abdominal Verified 11/19/16 13:06 [From Darvocet-N] Pain hydrocodone Allergy Abdominal Verified 11/19/16 13:06 Pain oxycodone Allergy Abdominal Verified 11/19/16 13:06 Pain propoxyphene Allergy Abdominal Verified 11/19/16 13:06 [From Darvocet-N] Pain valdecoxib [From Bextra] Allergy Abdominal Verified 11/19/16 13:06 Pain Home Meds: Home Meds Albuterol [IJD: Ventolin HFA] 2 puff INH Q4HR PRN 11/19/16 [History] Citalopram [Citalopram HBr] 20 mg PO DAILY 11/19/16 [History] Dextromethorphan/guaiFENesin [Robitussin DM] 10 ml PO ASDIRECTED PRN 11/19/16 [ History] Donepezil HCl [Aricept] 10 mg PO DAILY 11/19/16 [History] Furosemide [Lasix] 40 mg PO DAILY 11/19/16 [History] Ketotifen [Ketotifen 0.025% Ophth Soln] 1 drop EYEBOTH BID 11/19/16 [History] Levothyroxine [Synthroid] 50 mcg PO DAILY 11/19/16 [History] Loperamide [Imodium] 2 mg PO ASDIRECTED MDD 4 11/19/16 [History] Omeprazole 20 mg PO BID 11/19/16 [History] PHENobarbital [Phenobarbital] 97.2 mg PO BID 11/19/16 [History] Potassium Chloride [Klor-Con 10] 20 meq PO DAILY 11/19/16 [History] risperiDONE [Risperdal] 0.25 mg PO BID 11/19/16 [History] Sucralfate [Carafate] 1 gm PO ACBED 30 Days #120 tab 11/21/16 [Rx] Past Medical History Cardiovascular History: Reports: High Cholesterol Respiratory History: Reports: COPD Gastrointestinal History: Reports: GI Bleed Neurological History: Reports: Alzheimers Disease Psychiatric History: Reports: Anxiety, Depression, Other (See Below) Other Psychiatric History: delusional disorders Endocrine/Metabolic History: Reports: Hypothyroidism - Infectious Disease History Infectious Disease History: Reports: Chicken Pox - Past Surgical History Cardiovascular Surgical History: Reports: None Respiratory Surgical History: Reports: None Neurological Surgical History: Reports: None Social & Family History - Family History Family Medical History: Noncontributory - Tobacco Use Smoking Status *Q: Never Smoker Used Tobacco, but Quit: Yes Month Tobacco Last Used: November Second Hand Smoke Exposure: No - Caffeine Use Caffeine Use: Reports: None - Recreational Drug Use Recreational Drug Use: No ED ROS GENERAL - Review of Systems Review Of Systems: Unable To Obtain ED EXAM, NEURO - Physical Exam Exam: See Below Exam Limited By: Altered Mental Status General Appearance: Alert, WD/WN, No Apparent Distress Eye Exam: Bilateral Eye: Normal Inspection, PERRL Ears: Normal External Exam Nose: Normal Inspection Throat/Mouth: Normal Oropharynx Head Exam: Normocephalic Neck: Normal Inspection, Limited Range of Motion Respiratory/Chest: Lungs Clear, Chest Non-Tender Cardiovascular: Regular Rate, Rhythm GI/Abdominal: Normal Bowel Sounds, Soft, Non-Tender, No Organomegaly, No Distention (Male) Exam: No Hernia Rectal (Males) Exam: Deferred Neurological: Alert, CN II-XII Intact Back Exam: Other (kyphosis) Extremities: Normal Inspection Psychiatric: Other (confused, disorientated to date, time and circumstances; lacks insight and judgement; poor recall of recent and immediate memory; unreliable historian) Skin Exam: Warm, Dry Course - Vital Signs Text/Narrative:: Following initial exam and telephone visit with RN at [facility], medical records were reviewed. Haldol 2 mg IV was administered for sedation prior to MRI of brain, but study could not be conducted because he was unable to be positioned in the scanner. He is currently cooperative. Last Recorded V/S: Last Vital Signs Temp 36.6 C 11/22/16 15:35 Pulse 85 11/22/16 15:35 Resp 18 11/22/16 16:45 BP 128/61 11/22/16 16:45 Pulse Ox 96 11/22/16 16:45 - Orders/Labs/Meds Orders: Active Orders 24 hr Category Date Time Status Brain wo Cont [MR] Stat Exams 11/22/16 16:20 Ordered Sodium Chloride 0.9% [Normal Saline] 1,000 ml Med 11/22/16 16:30 Active IV ASDIRECTED Sodium Chloride 0.9% [Saline Flush] Med 11/22/16 16:20 Active 10 ml FLUSH ASDIRECTED PRN Peripheral IV Insertion Adult [OM.PC] Routine Oth 11/22/16 16:20 Ordered Medication Orders Sodium Chloride (Normal Saline) 1,000 mls @ 150 mls/hr IV ASDIRECTED AYAZ Sodium Chloride (Saline Flush) 10 ml FLUSH ASDIRECTED PRN PRN Reason: Keep Vein Open Meds: Medications Generic Name Dose Route Start Last Admin Trade Name Freq PRN Reason Stop Dose Admin Sodium Chloride 1,000 mls @ 150 mls/hr 11/22/16 16:30 Normal Saline IV ASDIRECTED AY[facility] Sodium Chloride 10 ml 11/22/16 16:20 Saline Flush FLUSH ASDIRECTED PRN Keep Vein Open Discontinued Medications Generic Name Dose Route Start Last Admin Trade Name Freq PRN Reason Stop Dose Admin Haloperidol Lactate 2 mg 11/22/16 16:20 11/22/16 16:38 Haldol IVPUSH 11/22/16 16:21 2 mg ONETIME ONE Administration Departure - Departure Time of Disposition: 16:55 Disposition: DC/Tfer to [facility] Condition: Fair Clinical Impression: Dementia Qualifiers: Dementia type: Alzheimer's disease - Discharge Information Referrals: Shelbi Juárez, [facility] [Primary Care Provider] - Forms: ED Department Discharge - Problem List & Annotations (1) Dementia SNOMED Code(s): 91074513 Code(s): F03.90 - UNSPECIFIED DEMENTIA WITHOUT BEHAVIORAL DISTURBANCE Status: Acute Current Visit: Yes Annotation/Comment:: continue home medications. Plan to discontinue medications not in-line with comfort measures. I would increase Risperidol to 0.5 mg bid and follow up with PCP. Qualifiers: Dementia type: Alzheimer's disease - Problem List Review Problem List Initiated/Reviewed/Updated: Yes - My Orders Last 24 Hours: My Active Orders 11/22/16 16:20 Brain wo Cont [MR] Stat Sodium Chloride 0.9% [Saline Flush] 10 ml FLUSH ASDIRECTED PRN Peripheral IV Insertion Adult [OM.PC] Routine 11/22/16 16:30 Sodium Chloride 0.9% [Normal Saline] 1,000 ml IV ASDIRECTED - Assessment/Plan Last 24 Hours: My Active Orders 11/22/16 16:20 Brain wo Cont [MR] Stat Sodium Chloride 0.9% [Saline Flush] 10 ml FLUSH ASDIRECTED PRN Peripheral IV Insertion Adult [OM.PC] Routine 11/22/16 16:30 Sodium Chloride 0.9% [Normal Saline] 1,000 ml IV ASDIRECTED Plan: Follow up with PCP.
== END 2016-11-22 17:57 | disposition home or self-care (01) ==
LOC: FB.ED 15:33
DX: G30.9 Alzheimer's disease, unspecified (principal); E78.00 Pure hypercholesterolemia, unspecified; J44.9 Chronic obstructive pulmonary disease, unspecified; F32.9 Major depressive disorder, single episode, unspecified; E03.9 Hypothyroidism, unspecified; F02.80 Dementia in other diseases classified elsewhere, unspecified severity, without behavioral disturbance, psychotic disturbance, mood disturbance, and anxiety; Z87.891 Personal history of nicotine dependence; Z79.899 Other long term (current) drug therapy; Z88.5 Allergy status to narcotic agent; Z88.6 Allergy status to analgesic agent; Z88.8 Allergy status to other drugs, medicaments and biological substances
CPT/HCPCS: 96374; 99284; J1630

== ENCOUNTER 2017-03-29 20:21 | Emergency (ER) | payer MEDICARE, OTHER ==
--- NOTE | 2017-03-29 22:47 | EDM.PDOC ---
ED HPI GENERAL MEDICAL PROBLEM - General Chief Complaint: Upper Extremity Injury/Pain Stated Complaint: SHOULDER PAIN Time Seen by Provider: 03/29/17 20:32 Source of Information: Reports: Patient, EMS History Limitations: Reports: Altered Mental Status, Physical Impairment - History of Present Illness INITIAL COMMENTS - FREE TEXT/NARRATIVE: 76 y.o.w.m came by EMS from a memory unit to the ed after he fell on his right shoulder and has no right shoulder pain with movement. No Family is present. Mech of injury is not known. No N/V/D or any other acute medical issues. BP 159/ 76 Pulse 76 RR 18 Pulse ox 97 % on RA, temp 37.1 Onset Date: 03/29/17 Onset Time: 09:00 Duration: Hour(s):, Intermittent Location: Reports: Upper Extremity, Right Quality: Reports: Ache, Burning, Dull Severity: Mild Improves with: Reports: Cold Therapy, Rest Worsens with: Reports: Movement Context: Reports: Trauma Associated Symptoms: Reports: No Other Symptoms, Confusion - Related Data Allergies Allergy/AdvReac Type Severity Reaction Status Date / Time acetaminophen Allergy Abdominal Verified 03/29/17 20:26 [From Darvocet-N] Pain hydrocodone Allergy Abdominal Verified 03/29/17 20:26 Pain oxycodone Allergy Abdominal Verified 03/29/17 20:26 Pain propoxyphene Allergy Abdominal Verified 03/29/17 20:26 [From Darvocet-N] Pain valdecoxib [From Bextra] Allergy Abdominal Verified 03/29/17 20:26 Pain Home Meds: Home Meds Albuterol [IJD: Ventolin HFA] 2 puff INH Q4HR PRN 11/19/16 [History] Citalopram [Citalopram HBr] 20 mg PO DAILY 11/19/16 [History] Dextromethorphan/guaiFENesin [Robitussin DM] 10 ml PO ASDIRECTED PRN 11/19/16 [ History] Donepezil HCl [Aricept] 10 mg PO DAILY 11/19/16 [History] Furosemide [Lasix] 40 mg PO DAILY 11/19/16 [History] Ketotifen [Ketotifen 0.025% Ophth Soln] 1 drop EYEBOTH BID 11/19/16 [History] Levothyroxine [Synthroid] 50 mcg PO DAILY 10/14/17 [History] Loperamide [Imodium] 2 mg PO ASDIRECTED MDD 4 11/19/16 [History] Omeprazole 20 mg PO BID 11/19/16 [History] PHENobarbital [Phenobarbital] 97.2 mg PO BID 11/19/16 [History] Potassium Chloride [Klor-Con 10] 20 meq PO DAILY 11/19/16 [History] risperiDONE [Risperdal] 0.25 mg PO BID 11/19/16 [History] Sucralfate [Carafate] 1 gm PO ACBED 30 Days #120 tab 11/21/16 [Rx] Past Medical History Cardiovascular History: Reports: High Cholesterol Respiratory History: Reports: COPD Gastrointestinal History: Reports: GI Bleed Neurological History: Reports: Alzheimers Disease Psychiatric History: Reports: Anxiety, Depression, Other (See Below) Other Psychiatric History: delusional disorders Endocrine/Metabolic History: Reports: Hypothyroidism - Infectious Disease History Infectious Disease History: Reports: Chicken Pox - Past Surgical History Cardiovascular Surgical History: Reports: None Respiratory Surgical History: Reports: None Neurological Surgical History: Reports: None Social & Family History - Family History Family Medical History: Noncontributory - Tobacco Use Smoking Status *Q: Current Status Unknown Used Tobacco, but Quit: Yes Month Tobacco Last Used: November Second Hand Smoke Exposure: No - Caffeine Use Caffeine Use: Reports: None - Recreational Drug Use Recreational Drug Use: No Review of Systems - Review of Systems Review Of Systems: Unable To Obtain (dementia) ED EXAM, GENERAL - Physical Exam Exam: See Below Exam Limited By: Altered Mental Status General Appearance: Alert, WD/WN, Mild Distress Eye Exam: Bilateral Eye: Normal Inspection Ear Exam: Bilateral Ear: Auricle Normal Nose: Normal Inspection, Normal Mucosa Throat/Mouth: Normal Inspection Head: Atraumatic, Normocephalic Neck: Normal Inspection, Supple, Non-Tender, Full Range of Motion Respiratory/Chest: No Respiratory Distress, Lungs Clear, Normal Breath Sounds Cardiovascular: Normal Peripheral Pulses, Regular Rate, Rhythm, No Edema, No Gallop Peripheral Pulses: 1+: Radial (L) (Male) Exam: Deferred Rectal (Males) Exam: Deferred Back Exam: Normal Inspection, Full Range of Motion Extremities: Normal Inspection Neurological: Alert, CN II-XII Intact, Normal Gait, No Motor/Sensory Deficits Psychiatric: Normal Mood Skin Exam: Warm, Dry, Intact, Normal Color, No Rash Lymphatic: No Adenopathy Course - Vital Signs Text/Narrative:: 76 y.o.w.m came by EMS from a memory unit to the ed after he fell on his right shoulder and has no right shoulder pain with movement. No Family is present. Mech of injury is not known. No N/V/D or any other acute medical issues. BP 159/ 76 Pulse 76 RR 18 Pulse ox 97 % on RA, temp 37.1 PE: WNWD W M NAD with r lat shoulder pain to palp and decr. ROM right shoulder Imaging: Comminuted right humeral head fx Impression: Fall, Comminuted right humeral head fx, closed 10.36 pm Consultation: Dr. Langley< ortho at [facility]: Mona F/U with the shoulder clinic in one week. Tx: Boom Dunn Reexam: improved Plan: D/C with instructions Last Recorded V/S: Last Vital Signs Temp 36.6 C 03/29/17 22:53 Pulse 63 03/29/17 22:53 Resp 18 03/29/17 22:53 BP 145/71 H 03/29/17 22:53 Pulse Ox 100 03/29/17 22:53 Departure - Departure Time of Disposition: 22:48 Disposition: Home, Self-Care 01 Condition: Good Clinical Impression: Humeral head fracture Qualifiers: Encounter type: initial encounter Fracture type: closed Laterality: right Qualified Code(s): S42.291A - Other displaced fracture of upper end of right humerus, initial encounter for closed fracture - Discharge Information Referrals: PCP,Unknown [Primary Care Provider] - Forms: ED Department Discharge Additional Instructions: Mona pain meds, please f/u with the shoulder clinic in one week. Ice to affected area, coem back if your symptoms get worse acutely
--- NOTE | 2017-03-30 10:24 | CR ---
INDICATION: Trauma. RIGHT SHOULDER COMPLETE: Three views of the right shoulder were obtained, revealing a comminuted fracture of the proximal humeral metaphysis with an appearance of mild impaction and minimal anterior angulation, possible minimal medial angulation. Images were nonstandard in positioning due to patient inability to cooperate with the examination. Somewhat diminished bone density may be present, raising question of osteoporosis. Glenohumeral joint space appears to be fairly well maintained. IMPRESSION: Comminuted proximal humeral fracture with mild deformity. MTDD
== END 2017-03-29 23:12 | disposition home or self-care (01) ==
LOC: FB.ED 20:21
DX: S42.292A Other displaced fracture of upper end of left humerus, initial encounter for closed fracture (principal); G30.9 Alzheimer's disease, unspecified; F02.80 Dementia in other diseases classified elsewhere, unspecified severity, without behavioral disturbance, psychotic disturbance, mood disturbance, and anxiety; E78.00 Pure hypercholesterolemia, unspecified; E03.9 Hypothyroidism, unspecified; W19.XXXA Unspecified fall, initial encounter; Z88.5 Allergy status to narcotic agent; Z88.8 Allergy status to other drugs, medicaments and biological substances; Z79.899 Other long term (current) drug therapy
CPT/HCPCS: 73030-RT; 99283

== ENCOUNTER 2018-09-17 01:44 | Inpatient (IN) | payer MEDICARE ==
--- NOTE | 2018-09-17 02:01 | EDM.PDOC ---
ED HPI GENERAL MEDICAL PROBLEM - General Chief Complaint: Fever Stated Complaint: WEAKNESS Time Seen by Provider: 09/17/18 01:48 Source of Information: Reports: [facility] Records, RN History Limitations: Reports: Other (Patient cannot provide me any information secondary to his altered mental status) - History of Present Illness INITIAL COMMENTS - FREE TEXT/NARRATIVE: 77-year-old male resident of [facility] who was noted to have a fever to 101.8 and dark urine (that was felt was blood) by the nursing staff vinayak. He was also noted to have somewhat gurgly respirations and cough with an O2 saturation of 90% on room air. The patient is nonverbal at this time and cannot provide me with any information. The only history that I get is from the nurse from the halfway. No reported vomiting. The patient does have a TLSO brace on secondary to several compression fractures. The patient is brought over from the halfway for evaluation of his fever, altered mental status and dark urine. There are no other associated signs or symptoms. There are no other modifying factors. Onset: Today Duration: Constant Severity: Moderate Improves with: Reports: None Worsens with: Reports: None Treatments [employer]: Reports: Other (see below) (Nothing) - Related Data Allergies Allergy/AdvReac Type Severity Reaction Status Date / Time acetaminophen Allergy Abdominal Verified 09/17/18 01:54 [From Darvocet-N] Pain hydrocodone Allergy Abdominal Verified 09/17/18 01:54 Pain oxycodone Allergy Abdominal Verified 09/17/18 01:54 Pain propoxyphene Allergy Abdominal Verified 09/17/18 01:54 [From Darvocet-N] Pain valdecoxib [From Bextra] Allergy Abdominal Verified 09/17/18 01:54 Pain Home Meds: Home Meds Albuterol [IJD: Ventolin HFA] 2 puff INH Q4HR PRN 11/19/16 [History] Dextromethorphan/guaiFENesin [Robitussin DM] 10 ml PO ASDIRECTED PRN 11/19/16 [ History] Donepezil HCl [Aricept] 10 mg PO BEDTIME 11/19/16 [History] Furosemide [Lasix] 20 mg PO DAILY 11/19/16 [History] Ketotifen [Ketotifen 0.025% Ophth Soln] 1 drop EYEBOTH BID 11/19/16 [History] Levothyroxine [Synthroid] 100 mcg PO DAILY 11/19/16 [History] Loperamide [Imodium] 2 mg PO Q4H PRN MDD 4 11/19/16 [History] Omeprazole 20 mg PO DAILY 11/19/16 [History] PHENobarbital [Phenobarbital] 97.2 mg PO BID 11/19/16 [History] Potassium Chloride [Klor-Con 10] 20 meq PO DAILY 11/19/16 [History] Citalopram Hydrobromide [Celexa] 30 mg PO DAILY 10/12/17 [History] Memantine HCl 10 mg PO BID 10/12/17 [History] Tamsulosin [Tamsulosin 24 Hr] 0.4 mg PO 1200 10/12/17 [History] risperiDONE 0.5 mg PO 08 10/12/17 [History] traMADol [Ultram] 25 mg PO Q6H PRN 10/12/17 [History] Albuterol/Ipratropium [DuoNeb 3.0-0.5 MG/3 ML] 1 vial INH Q6H PRN 09/17/18 [ History] Aspirin [Adult Low Dose Aspirin EC] 81 mg PO DAILY 09/17/18 [History] Bisacodyl [Dulcolax] 10 mg RC DAILY PRN 09/17/18 [History] Docusate Sodium [Colace] 100 mg PO DAILY 09/17/18 [History] Gabapentin [Neurontin] 100 mg PO TID 09/17/18 [History] Magnesium Hydroxide [Milk of Magnesia] 30 ml PO DAILY PRN 09/17/18 [History] Multivitamin [Multivitamins] 1 cap PO DAILY 09/17/18 [History] Polyethylene Glycol 3350 [MiraLAX] 17 gm PO DAILY 09/17/18 [History] Rosuvastatin [Crestor] 5 mg PO DAILY 09/17/18 [History] risperiDONE 0.25 mg PO 12 09/17/18 [History] risperiDONE 1.5 mg PO BEDTIME 09/17/18 [History] traMADol [Ultram] 25 mg PO BID 09/17/18 [History] Past Medical History HEENT History: Reports: Hard of Hearing, Impaired Vision Cardiovascular History: Reports: High Cholesterol, Hypertension Other Cardiovascular History: peripheral edema Respiratory History: Reports: COPD Gastrointestinal History: Reports: GI Bleed Other Gastrointestinal History: fatty liver Genitourinary History: Reports: Urinary Incontinence Musculoskeletal History: Reports: Fracture (Thoracic and lumbar compression fractures) Neurological History: Reports: Alzheimers Disease Psychiatric History: Reports: Anxiety, Depression, Other (See Below) Other Psychiatric History: delusional disorders Endocrine/Metabolic History: Reports: Hypothyroidism - Infectious Disease History Infectious Disease History: Reports: Chicken Pox - Past Surgical History Cardiovascular Surgical History: Reports: None Respiratory Surgical History: Reports: None Neurological Surgical History: Reports: None Social & Family History - Family History Family Medical History: Unobtainable - Tobacco Use Smoking Status *Q: Unknown Ever Smoked (Nonsmoker now.) - Caffeine Use Caffeine Use: Reports: None - Alcohol Use Alcohol Use History: No Alcohol Use Comment: Unknown - Living Situation & Occupation Living situation: Reports: Extended Care Facility (Lives in [facility]) Occupation: Retired ED ROS GENERAL - Review of Systems Review Of Systems: Unable To Obtain (The patient cannot provide me with this information.) ED EXAM, GENERAL - Physical Exam Exam: See Below Exam Limited By: No Limitations General Appearance: Moderate Distress, Obese Eye Exam: Bilateral Eye: Normal Inspection (Sclera anicteric) Ears: Normal External Exam Ear Exam: Bilateral Ear: Auricle Normal Neck: Normal Inspection, Supple Respiratory/Chest: No Respiratory Distress, No Accessory Muscle Use, Crackles, Rales, Rhonchi Cardiovascular: Normal Peripheral Pulses, Regular Rate, Rhythm, No JVD Peripheral Pulses: 2+: Radial (L), Radial (R), Dorsalis Pedis (L), Dorsalis Pedis (R) GI/Abdominal: Soft, Abnormal Bowel Sounds (Diminished) Back Exam: Normal Inspection Extremities: Normal Inspection, Normal Range of Motion, Limited Range of Motion , Other Neurological: No Motor/Sensory Deficits, Unresponsive, Other (Nonverbal) Skin Exam: Warm, Dry, Intact, No Rash Course - Vital Signs Last Recorded V/S: Last Vital Signs Temp 38.1 C 09/17/18 03:00 Pulse 89 09/17/18 03:00 Resp 18 09/17/18 03:00 BP 92/50 L 09/17/18 03:00 Pulse Ox 92 L 09/17/18 03:00 - Orders/Labs/Meds Orders: Active Orders 24 hr Category Date Time Status Chest 1V Frontal [CR] Stat Exams 09/17/18 02:03 Taken CULTURE BLOOD [BC] Urgent Lab 09/17/18 02:20 Received CULTURE BLOOD [BC] Urgent Lab 09/17/18 02:30 Received CULTURE URINE [RM] Stat Lab 09/17/18 01:50 Received Levofloxacin/Dextrose 5%-Water [Levaquin in D5W 750 MG/ Med 09/17/18 03:00 Active 150 ML] 750 mg Premix Bag 1 bag IV Q24H Sodium Chloride 0.9% [Saline Flush] Med 09/17/18 02:03 Active 10 ml FLUSH ASDIRECTED PRN Blood Culture x2 Reflex Set [OM.PC] Urgent Oth 09/17/18 02:01 Ordered Peripheral IV Insertion Adult [OM.PC] Routine Oth 09/17/18 02:03 Ordered Medication Orders Acetaminophen (Tylenol) 650 mg RECTAL Q4H PRN PRN Reason: Mild pain/fever Levofloxacin/Dextrose 750 mg/ (Premix) 150 mls @ 100 mls/hr IV Q24H AYAZ Last Admin: 09/17/18 02:53 Dose: 100 mls/hr Sodium Chloride (Normal Saline) 1,000 mls @ 125 mls/hr IV ASDIRECTED AYAZ Ondansetron HCl (Zofran) 4 mg IV Q6H PRN PRN Reason: Nausea/Vomiting Sodium Chloride (Saline Flush) 10 ml FLUSH ASDIRECTED PRN PRN Reason: Keep Vein Open Last Admin: 09/17/18 02:30 Dose: 10 ml Labs: Laboratory Tests 09/17/18 09/17/18 09/17/18 Range/Units 01:50 02:30 02:30 WBC 17.3 H (4.5-12.0) X10-3/uL RBC 4.14 L (4.30-5.75) x10(6)uL Hgb 12.4 L (13.5-17.8) g/dL Hct 36.2 (30.0-51.3) % MCV 87.4 (80-96) fL MCH 30.0 (27.7-33.6) pg MCHC 34.3 (32.2-35.4) g/dL RDW 14.0 (11.5-15.5) % Plt Count 284 (125-369) X10(3)uL MPV 7.3 L (7.4-10.4) fL Add Manual Diff Yes Neutrophils % (Manual) 85 H (46-82) % Band Neutrophils % 1 (0-6) % Lymphocytes % (Manual) 4 L (13-37) % Monocytes % (Manual) 8 (4-12) % Eosinophils % (Manual) 2 (0-5) % Sodium 136 (135-145) mmol/L Potassium 4.1 (3.5-5.3) mmol/L Chloride 96 L D (100-110) mmol/L Carbon Dioxide 31 (21-32) mmol/L BUN 19 H (7-18) mg/dL Creatinine 0.7 (0.70-1.30) mg/dL Est Cr Clr Drug Dosing TNP Estimated GFR (MDRD) > 60 (>60) BUN/Creatinine Ratio 27.1 H (9-20) Glucose 115 (80-116) mg/dL Lactic Acid (0.4-2.2) mmol/L Calcium 8.5 L (8.6-10.2) mg/dL Total Bilirubin 0.3 (0.1-1.3) mg/dL AST 24 D (5-25) IU/L ALT 27 (12-36) U/L Alkaline Phosphatase 131 H (56-112) IU/L C-Reactive Protein (0.5-0.9) mg/dL Total Protein 7.7 (6.0-8.0) g/dL Albumin 2.8 L (3.2-4.6) g/dL Globulin 4.9 g/dL Albumin/Globulin Ratio 0.6 Urine Color Yellow (YELLOW) Urine Appearance Clear (CLEAR) Urine pH 8.5 H (5.0-6.5) Ur Specific [place] 1.005 L (1.010-1.025) Urine Protein 30 H (NEGATIVE) mg/dL Urine Glucose (UA) Normal (NORMAL) mg/dL Urine Ketones Negative (NEGATIVE) mg/dL Urine Occult Blood Moderate (NEGATIVE) Urine Nitrite Negative (NEGATIVE) Urine Bilirubin Negative (NEGATIVE) Urine Urobilinogen Normal (NEGATIVE) mg/dL Ur Leukocyte Esterase Negative (NEGATIVE) Urine RBC 30-40 H (0-5) Urine WBC 0-5 (0-5) Ur Squamous Epith Cells Occasional (NS,R,O) Amorphous Sediment Few Urine Bacteria Few H (NS) Urine Mucus Few H (NS) 09/17/18 09/17/18 Range/Units 02:30 02:30 WBC (4.5-12.0) X10-3/uL RBC (4.30-5.75) x10(6)uL Hgb (13.5-17.8) g/dL Hct (30.0-51.3) % MCV (80-96) fL MCH (27.7-33.6) pg MCHC (32.2-35.4) g/dL RDW (11.5-15.5) % Plt Count (125-369) X10(3)uL MPV (7.4-10.4) fL Add Manual Diff Neutrophils % (Manual) (46-82) % Band Neutrophils % (0-6) % Lymphocytes % (Manual) (13-37) % Monocytes % (Manual) (4-12) % Eosinophils % (Manual) (0-5) % Sodium (135-145) mmol/L Potassium (3.5-5.3) mmol/L Chloride (100-110) mmol/L Carbon Dioxide (21-32) mmol/L BUN (7-18) mg/dL Creatinine (0.70-1.30) mg/dL Est Cr Clr Drug Dosing Estimated GFR (MDRD) (>60) BUN/Creatinine Ratio (9-20) Glucose (80-116) mg/dL Lactic Acid 1.6 (0.4-2.2) mmol/L Calcium (8.6-10.2) mg/dL Total Bilirubin (0.1-1.3) mg/dL AST (5-25) IU/L ALT (12-36) U/L Alkaline Phosphatase (56-112) IU/L C-Reactive Protein 8.3 H* (0.5-0.9) mg/dL Total Protein (6.0-8.0) g/dL Albumin (3.2-4.6) g/dL Globulin g/dL Albumin/Globulin Ratio Urine Color (YELLOW) Urine Appearance (CLEAR) Urine pH (5.0-6.5) Ur Specific [place] (1.010-1.025) Urine Protein (NEGATIVE) mg/dL Urine Glucose (UA) (NORMAL) mg/dL Urine Ketones (NEGATIVE) mg/dL Urine Occult Blood (NEGATIVE) Urine Nitrite (NEGATIVE) Urine Bilirubin (NEGATIVE) Urine Urobilinogen (NEGATIVE) mg/dL Ur Leukocyte Esterase (NEGATIVE) Urine RBC (0-5) Urine WBC (0-5) Ur Squamous Epith Cells (NS,R,O) Amorphous Sediment Urine Bacteria (NS) Urine Mucus (NS) Meds: Medications Generic Name Dose Route Start Last Admin Trade Name Davidq PRN Reason Stop Dose Admin Acetaminophen 650 mg 09/17/18 03:09 Tylenol RECTAL Q4H PRN Mild pain/fever Levofloxacin/Dextrose 750 mg/ 150 mls @ 100 mls/hr 09/17/18 03:00 09/17/18 02 :53 Premix IV 100 mls/hr Q24H AYAZ Administration Sodium Chloride 1,000 mls @ 125 mls/hr 09/17/18 03:15 Normal Saline IV ASDIRECTED AYAZ Ondansetron HCl 4 mg 09/17/18 03:09 Zofran IV Q6H PRN Nausea/Vomiting Sodium Chloride 10 ml 09/17/18 02:03 09/17/18 02:30 Saline Flush FLUSH 10 ml ASDIRECTED PRN Administration Keep Vein Open Discontinued Medications Generic Name Dose Route Start Last Admin Trade Name Luz PRN Reason Stop Dose Admin Acetaminophen 650 mg 09/17/18 02:05 09/17/18 02:42 Tylenol RECTAL 09/17/18 02:06 650 mg NOW ONE Administration Sodium Chloride 1,000 mls @ 999 mls/hr 09/17/18 02:04 09/17/18 02:35 Normal Saline IV 09/17/18 03:04 999 mls/hr .BOLUS ONE Administration Levofloxacin/Dextrose Confirm 09/17/18 02:51 09/17/18 03:01 Levaquin In D5w 750 Mg/150 Ml Administered 09/17/18 02:52 Not Given Dose 150 mls @ as directed IV .RUST-MED ONE - Radiology Interpretation Free Text/Narrative:: A chest x-ray shows left lower lobe infiltrate. - Re-Assessments/Exams Free Text/Narrative Re-Assessment/Exam: 09/17/18 03:24: Chest x-ray showed a left pneumonia. He has borderline low O2 saturations and evidence of dehydration. His urine test showed blood but really no evidence of infection. Blood cultures 2 and a urine culture was obtained. The patient has signs of early sepsis and will need admission with IV antibiotics and supplemental oxygen as well as IV fluid hydration. The patient has had an improvement in his sensorium with IV fluid hydration and antipyretics. At this point, his plan of care cannot be safely accomplished the outpatient setting and will need to midnight stay to accomplish this plan of care. I have placed admission orders and Dr. Santillan will send care of the patient at 7 AM on 09/17/2018. Departure - Departure Time of Disposition: 03:15 Disposition: Admitted As Inpatient 66 Condition: Fair Clinical Impression: Pneumonia Qualifiers: Pneumonia type: due to unspecified organism Laterality: left Lung location: lower lobe of lung Qualified Code(s): J18.1 - Lobar pneumonia, unspecified organism Sepsis Qualifiers: Sepsis type: sepsis due to unspecified organism Sepsis acute organ dysfunction status: with acute organ dysfunction Severe sepsis acute organ dysfunction type : acute respiratory failure Acute respiratory failure type: with hypoxia Severe sepsis shock status: without septic shock Qualified Code(s): A41.9 - Sepsis, unspecified organism; R65.20 - Severe sepsis without septic shock; J96.01 - Acute respiratory failure with hypoxia - Discharge Information - My Orders Last 24 Hours: My Active Orders 09/17/18 01:50 CULTURE URINE [RM] Stat 09/17/18 02:01 Blood Culture x2 Reflex Set [OM.PC] Urgent 09/17/18 02:03 Chest 1V Frontal [CR] Stat Sodium Chloride 0.9% [Saline Flush] 10 ml FLUSH ASDIRECTED PRN Peripheral IV Insertion Adult [OM.PC] Routine 09/17/18 02:20 CULTURE BLOOD [BC] Urgent 09/17/18 02:30 CULTURE BLOOD [BC] Urgent 09/17/18 03:00 Levofloxacin/Dextrose 5%-Water [Levaquin in D5W 750 MG/150 ML] 750 mg Premix Bag 1 bag IV Q24H - Assessment/Plan Last 24 Hours: My Active Orders 09/17/18 01:50 CULTURE URINE [RM] Stat 09/17/18 02:01 Blood Culture x2 Reflex Set [OM.PC] Urgent 09/17/18 02:03 Chest 1V Frontal [CR] Stat Sodium Chloride 0.9% [Saline Flush] 10 ml FLUSH ASDIRECTED PRN Peripheral IV Insertion Adult [OM.PC] Routine 09/17/18 02:20 CULTURE BLOOD [BC] Urgent 09/17/18 02:30 CULTURE BLOOD [BC] Urgent 09/17/18 03:00 Levofloxacin/Dextrose 5%-Water [Levaquin in D5W 750 MG/150 ML] 750 mg Premix Bag 1 bag IV Q24H
[2018-09-17] MEDS ORDERED: Sodium Chloride 0.9% 1,000 ML IV ONE (02:04)
[2018-09-17] MEDS ORDERED: Acetaminophen 650 MG Supp RECTAL ONE (02:05)
[2018-09-17] MEDS: Sodium Chloride 0.9% 10 ML Syringe FLUSH PRN ×2 (02:30→19:06)
[2018-09-17] MEDS ORDERED: Levofloxacin/Dextrose 5%-Water 150 ML IV ONE (02:51)
[2018-09-17] MEDS ORDERED: Levofloxacin/Dextrose 5%-Water 750 MG in Premix Bag 1 BAG IV SCH (03:00)
[2018-09-17] MEDS ORDERED: Ondansetron 4 MG/2 ML SDV IV PRN (03:09)
[2018-09-17] MEDS ORDERED: Sodium Chloride 0.9% 1,000 ML IV SCH (03:15)
[2018-09-17] MEDS ORDERED: Acetaminophen 650 MG Supp RECTAL PRN (06:00)
--- NOTE | 2018-09-17 11:59 | CR ---
INDICATION: Borderline low oxygen saturation, cough, and fever. CHEST: AP portable upright view of the chest was obtained 09/17/18 and compared with 11/19/16 and 09/23/07. The heart appears enlarged. There is a double density behind the heart, raising question of a large fixed hiatal hernia. This should be correlated clinically. Lateral view should be helpful in that regard. The aorta is calcified in the arch area. The pulmonary vasculature appears slightly congested, which could be on the basis of CHF and should be correlated clinically. Interstitial edema could also be present since there is some interstitial prominence. No gross consolidating pneumonia or effusion was seen, however. MTDD
--- NOTE | 2018-09-17 12:33 | PCM.HP ---
H&P History of Present Illness - General Date of Service: 09/17/18 Admit Problem/Dx: Admission Diagnosis/Problem Admission Diagnosis/Problem Pneumonia Source of Information: Patient, EMS Notes Reviewed History Limitations: Reports: Altered Mental Status - History of Present Illness Initial Comments - Free Text/Narative: 77-year-old male resident of [facility] had fever 101.8 and dark urine (that was felt was blood) by the nursing staff last night. Having wet respirations and cough with an O2 saturation of 90% on room air. Patient has dementia so exam is limited. He denies chest pain, nausea, vomiting or abdominal pain. The patient does have a TLSO brace on secondary to several compression fractures that is on at all times so examination is also limited. - Related Data Allergies/Adverse Reactions: Allergies Allergy/AdvReac Type Severity Reaction Status Date / Time acetaminophen Allergy Abdominal Verified 09/17/18 01:54 [From Darvocet-N] Pain hydrocodone Allergy Abdominal Verified 09/17/18 01:54 Pain oxycodone Allergy Abdominal Verified 09/17/18 01:54 Pain propoxyphene Allergy Abdominal Verified 09/17/18 01:54 [From Darvocet-N] Pain valdecoxib [From Bextra] Allergy Abdominal Verified 09/17/18 01:54 Pain Home Medications: Home Meds Albuterol [IJD: Ventolin HFA] 2 puff INH Q4HR PRN 11/19/16 [History] Donepezil HCl [Aricept] 10 mg PO BEDTIME 11/19/16 [History] Furosemide [Lasix] 20 mg PO DAILY 11/19/16 [History] Ketotifen [Ketotifen 0.025% Ophth Soln] 1 drop EYEBOTH BID 11/19/16 [History] Levothyroxine [Synthroid] 100 mcg PO DAILY 11/19/16 [History] Loperamide [Imodium] 2 mg PO ASDIRECTED PRN MDD 4 11/19/16 [History] Omeprazole 20 mg PO DAILY 11/19/16 [History] PHENobarbital [Phenobarbital] 97.2 mg PO BID 11/19/16 [History] Potassium Chloride [Klor-Con 10] 20 meq PO DAILY 11/19/16 [History] Memantine HCl 10 mg PO BID 10/12/17 [History] Tamsulosin [Tamsulosin 24 Hr] 0.4 mg PO 1200 10/12/17 [History] risperiDONE 0.5 mg PO 08 10/12/17 [History] traMADol [Ultram] 25 mg PO Q6H PRN 10/12/17 [History] Albuterol/Ipratropium [DuoNeb 3.0-0.5 MG/3 ML] 1 vial INH Q6H PRN 09/17/18 [ History] Aspirin [Adult Low Dose Aspirin EC] 81 mg PO DAILY 09/17/18 [History] Bisacodyl [Dulcolax] 10 mg RC Q72H PRN 09/17/18 [History] Cholecalciferol (Vitamin D3) [Vitamin D3] 1,000 unit PO DAILY 09/17/18 [History] Citalopram Hydrobromide [Celexa] 20 mg PO DAILY 09/17/18 [History] [place] Starch 1 applic TOP ASDIRECTED PRN 09/17/18 [History] Docusate Sodium [Colace] 100 mg PO DAILY 09/17/18 [History] Eucalyptus/Menthol [Cough Drops] 1 vean PO ASDIRECTED PRN 09/17/18 [History] Gabapentin [Neurontin] 100 mg PO TID 09/17/18 [History] Magnesium Hydroxide [Milk of Magnesia] 30 ml PO DAILY PRN 09/17/18 [History] Multivitamin [Multivitamins] 1 cap PO DAILY 09/17/18 [History] Polyethylene Glycol 3350 [MiraLAX] 17 gm PO DAILY 09/17/18 [History] Rosuvastatin [Crestor] 10 mg PO DAILY 09/17/18 [History] guaiFENesin 10 ml PO Q4H PRN 09/17/18 [History] risperiDONE 0.25 mg PO 12 09/17/18 [History] risperiDONE 1.5 mg PO BEDTIME 09/17/18 [History] traMADol [Ultram] 25 mg PO BID 09/17/18 [History] Past Medical History HEENT History: Reports: Hard of Hearing, Impaired Vision, Other (See Below) Other HEENT History: conjunctivitis Cardiovascular History: Reports: High Cholesterol, Hypertension Other Cardiovascular History: peripheral edema Respiratory History: Reports: COPD, Other (See Below) Other Respiratory History: in with pneumonia Gastrointestinal History: Reports: Chronic Constipation, GERD, GI Bleed Other Gastrointestinal History: fatty liver Genitourinary History: Reports: BPH, Urinary Incontinence Musculoskeletal History: Reports: Fracture, Other (See Below) Other Musculoskeletal History: uses a full body lift,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, must wear back brace at all times Neurological History: Reports: Alzheimers Disease, Seizure Psychiatric History: Reports: Anxiety, Depression, Other (See Below) Other Psychiatric History: delusional disorders Endocrine/Metabolic History: Reports: Hypothyroidism Oncologic (Cancer) History: Reports: Prostate - Infectious Disease History Infectious Disease History: Reports: Chicken Pox - Past Surgical History Cardiovascular Surgical History: Reports: None Respiratory Surgical History: Reports: None Neurological Surgical History: Reports: None Oncologic Surgical History: Reports: None Social & Family History - Family History Family Medical History: Unobtainable - Tobacco Use Smoking Status *Q: Unknown Ever Smoked Second Hand Smoke Exposure: No - Caffeine Use Caffeine Use: Reports: None - Recreational Drug Use Recreational Drug Use: No - Living Situation & Occupation Living situation: Reports: Extended Care Facility (Lives in [facility]) Occupation: Retired H&P Review of Systems - Review of Systems: Review Of Systems: See Below Free Text/Narrative: Limited due to patient's cognition General: Reports: Fever Pulmonary: Reports: Shortness of Breath, Cough, Sputum Cardiovascular: Denies: Chest Pain Gastrointestinal: Denies: Abdominal Pain, Constipation, Diarrhea, Nausea, Vomiting Exam - Exam Exam: See Below - Vital Signs Vital Signs: Last Vital Signs Temp 36.7 C 09/17/18 07:45 Pulse 74 09/17/18 07:45 Resp 18 09/17/18 07:45 BP 106/61 09/17/18 07:45 Pulse Ox 94 L 09/17/18 07:45 Weight: 100.425 kg - Exam Quality Assessment: Supplemental Oxygen General: Alert, Cooperative HEENT: Other (Dry mucus membranes) Neck: Supple, Trachea Midline Lungs: Rhonchi (upper lobes only area able to examine due to TLSO brace) Cardiovascular: Other (unable to assess due to TLSO brace.) GI/Abdominal Exam: Normal Bowel Sounds (lower quadrants only due to TLSO brace) , Soft (BLQ), Non-Tender (BLQ) Extremities: Non-Tender, Pedal Edema (trace) Peripheral Pulses: 2+: Posterior Tibial (L), Posterior Tibial (R), Dorsalis Pedis (L), Dorsalis Pedis (R) Skin: Warm, Dry Neuro Extensive - Mental Status: Alert, Disorientation to Place, Disorientation to Time - Patient Data Lab Results Last 24 hrs: Laboratory Results - last 24 hr 09/17/18 09/17/18 09/17/18 Range/Units 01:50 02:30 02:30 WBC 17.3 H (4.5-12.0) X10-3/uL RBC 4.14 L (4.30-5.75) x10(6)uL Hgb 12.4 L (13.5-17.8) g/dL Hct 36.2 (30.0-51.3) % MCV 87.4 (80-96) fL MCH 30.0 (27.7-33.6) pg MCHC 34.3 (32.2-35.4) g/dL RDW 14.0 (11.5-15.5) % Plt Count 284 (125-369) X10(3)uL MPV 7.3 L (7.4-10.4) fL Add Manual Diff Yes Neutrophils % (Manual) 85 H (46-82) % Band Neutrophils % 1 (0-6) % Lymphocytes % (Manual) 4 L (13-37) % Monocytes % (Manual) 8 (4-12) % Eosinophils % (Manual) 2 (0-5) % Sodium 136 (135-145) mmol/L Potassium 4.1 (3.5-5.3) mmol/L Chloride 96 L D (100-110) mmol/L Carbon Dioxide 31 (21-32) mmol/L BUN 19 H (7-18) mg/dL Creatinine 0.7 (0.70-1.30) mg/dL Est Cr Clr Drug Dosing TNP Estimated GFR (MDRD) > 60 (>60) BUN/Creatinine Ratio 27.1 H (9-20) Glucose 115 (80-116) mg/dL POC Glucose (80-116) mg/dL Lactic Acid (0.4-2.2) mmol/L Calcium 8.5 L (8.6-10.2) mg/dL Total Bilirubin 0.3 (0.1-1.3) mg/dL AST 24 D (5-25) IU/L ALT 27 (12-36) U/L Alkaline Phosphatase 131 H (56-112) IU/L C-Reactive Protein (0.5-0.9) mg/dL Total Protein 7.7 (6.0-8.0) g/dL Albumin 2.8 L (3.2-4.6) g/dL Globulin 4.9 g/dL Albumin/Globulin Ratio 0.6 Urine Color Yellow (YELLOW) Urine Appearance Clear (CLEAR) Urine pH 8.5 H (5.0-6.5) Ur Specific [place] 1.005 L (1.010-1.025) Urine Protein 30 H (NEGATIVE) mg/dL Urine Glucose (UA) Normal (NORMAL) mg/dL Urine Ketones Negative (NEGATIVE) mg/dL Urine Occult Blood Moderate (NEGATIVE) Urine Nitrite Negative (NEGATIVE) Urine Bilirubin Negative (NEGATIVE) Urine Urobilinogen Normal (NEGATIVE) mg/dL Ur Leukocyte Esterase Negative (NEGATIVE) Urine RBC 30-40 H (0-5) Urine WBC 0-5 (0-5) Ur Squamous Epith Cells Occasional (NS,R,O) Amorphous Sediment Few Urine Bacteria Few H (NS) Urine Mucus Few H (NS) 09/17/18 09/17/18 09/17/18 Range/Units 02:30 02:30 03:39 WBC (4.5-12.0) X10-3/uL RBC (4.30-5.75) x10(6)uL Hgb (13.5-17.8) g/dL Hct (30.0-51.3) % MCV (80-96) fL MCH (27.7-33.6) pg MCHC (32.2-35.4) g/dL RDW (11.5-15.5) % Plt Count (125-369) X10(3)uL MPV (7.4-10.4) fL Add Manual Diff Neutrophils % (Manual) (46-82) % Band Neutrophils % (0-6) % Lymphocytes % (Manual) (13-37) % Monocytes % (Manual) (4-12) % Eosinophils % (Manual) (0-5) % Sodium (135-145) mmol/L Potassium (3.5-5.3) mmol/L Chloride (100-110) mmol/L Carbon Dioxide (21-32) mmol/L BUN (7-18) mg/dL Creatinine (0.70-1.30) mg/dL Est Cr Clr Drug Dosing Estimated GFR (MDRD) (>60) BUN/Creatinine Ratio (9-20) Glucose (80-116) mg/dL POC Glucose 136 H (80-116) mg/dL Lactic Acid 1.6 (0.4-2.2) mmol/L Calcium (8.6-10.2) mg/dL Total Bilirubin (0.1-1.3) mg/dL AST (5-25) IU/L ALT (12-36) U/L Alkaline Phosphatase (56-112) IU/L C-Reactive Protein 8.3 H* (0.5-0.9) mg/dL Total Protein (6.0-8.0) g/dL Albumin (3.2-4.6) g/dL Globulin g/dL Albumin/Globulin Ratio Urine Color (YELLOW) Urine Appearance (CLEAR) Urine pH (5.0-6.5) Ur Specific [place] (1.010-1.025) Urine Protein (NEGATIVE) mg/dL Urine Glucose (UA) (NORMAL) mg/dL Urine Ketones (NEGATIVE) mg/dL Urine Occult Blood (NEGATIVE) Urine Nitrite (NEGATIVE) Urine Bilirubin (NEGATIVE) Urine Urobilinogen (NEGATIVE) mg/dL Ur Leukocyte Esterase (NEGATIVE) Urine RBC (0-5) Urine WBC (0-5) Ur Squamous Epith Cells (NS,R,O) Amorphous Sediment Urine Bacteria (NS) Urine Mucus (NS) Result Diagrams: 09/17/18 02:30 09/17/18 02:30 - Problem List (1) Pneumonia SNOMED Code(s): 646809277 ICD Code: J18.9 - PNEUMONIA, UNSPECIFIED ORGANISM Status: Acute Current Visit: Yes Qualifiers: Pneumonia type: due to unspecified organism Laterality: left Lung location: lower lobe of lung Qualified Code(s): J18.1 - Lobar pneumonia, unspecified organism (2) Dementia SNOMED Code(s): 91229311 ICD Code: F03.90 - UNSPECIFIED DEMENTIA WITHOUT BEHAVIORAL DISTURBANCE Status: Acute Current Visit: No Problem Details: continue home medications. Plan to discontinue medications not in-line with comfort measures. I would increase Risperidol to 0.5 mg bid and follow up with PCP. Qualifiers: Dementia type: Alzheimer's disease Problem List Initiated/Reviewed/Updated: Yes Orders Last 24hrs: Active Orders 24 hr Category Date Time Status Admission Status [Patient Status] [ADT] Routine ADT 09/17/18 03:05 Active Aspiration Precautions [RC] 07,11,17 Care 09/17/18 08:36 Active Blood Glucose Check, Bedside [RC] Q6H Care 09/17/18 03:09 Active Height and Weight [RC] UPON Care 09/17/18 03:09 Active Intake and Output [RC] 06,14,22 Care 09/17/18 03:10 Active Oxygen Therapy [RC] PRN Care 09/17/18 03:09 Active Pulse Oximetry [RC] CONTINUOUS Care 09/17/18 03:11 Active Up to Chair [RC] ASDIRECTED Care 09/17/18 03:09 Active VTE/DVT Education [RC] Per Unit Routine Care 09/17/18 03:09 Active Vital Signs [RC] 04,08,12,16,20,00 Care 09/17/18 03:09 Active Regular Diet [DIET] Diet 09/17/18 Lunch Active CULTURE BLOOD [BC] Urgent Lab 09/17/18 02:20 Received CULTURE BLOOD [BC] Urgent Lab 09/17/18 02:30 Received CULTURE URINE [] Stat Lab 09/17/18 01:50 Received Acetaminophen [Tylenol] Med 09/17/18 06:00 Active 650 mg RECTAL Q4H PRN Levofloxacin/Dextrose 5%-Water [Levaquin in D5W 750 MG/ Med 09/17/18 03:00 Active 150 ML] 750 mg Premix Bag 1 bag IV Q24H Ondansetron [Zofran] Med 09/17/18 03:09 Active 4 mg IV Q6H PRN Sodium Chloride 0.9% [Normal Saline] 1,000 ml Med 09/17/18 03:15 Active IV ASDIRECTED Sodium Chloride 0.9% [Saline Flush] Med 09/17/18 02:03 Active 10 ml FLUSH ASDIRECTED PRN Blood Culture x2 Reflex Set [OM.PC] Urgent Oth 09/17/18 02:01 Ordered Peripheral IV Insertion Adult [OM.PC] Routine Oth 09/17/18 02:03 Ordered Resuscitation Status Routine Resus Stat 09/17/18 03:09 Ordered Medication Orders Acetaminophen (Tylenol) 650 mg RECTAL Q4H PRN PRN Reason: Mild pain/fever Levofloxacin/Dextrose 750 mg/ (Premix) 150 mls @ 100 mls/hr IV Q24H [facility] Last Admin: 09/17/18 02:53 Dose: 100 mls/hr Sodium Chloride (Normal Saline) 1,000 mls @ 125 mls/hr IV ASDIRECTED [facility] Last Admin: 09/17/18 08:42 Dose: 75 mls/hr Ondansetron HCl (Zofran) 4 mg IV Q6H PRN PRN Reason: Nausea/Vomiting Sodium Chloride (Saline Flush) 10 ml FLUSH ASDIRECTED PRN PRN Reason: Keep Vein Open Last Admin: 09/17/18 02:30 Dose: 10 ml Assessment/Plan Comment:: 1. Admit for inpatient treatment for suspected aspiration pneumonia, expect him to stay more than 2 midnights. 2. IV Levofloxacin started this morning at 3 am, will switch to Zosyn 3.375 gram IV q6h for better coverage for aspiration. CXR showed more edema not gross consolidation but WBC was 17 and CRP was 8.3 so will treat as aspiration. Aspiration precautions. 3. Stop IVF, will restart patient's Lasix, may do IV Lasix if needed. 4. Continue regular diet, soft textures, nectar thickened liquids for meals and free water between meals. 5. DNR/DNI. 6. Adjust treatments as necessary, repeat labs in am.
[2018-09-17] MEDS ORDERED: Sodium Chloride 0.9% 10 ML Syringe FLUSH PRN (12:43)
[2018-09-17] MEDS ORDERED: Bisacodyl 10 MG Supp RECTAL PRN (12:46)
[2018-09-17] MEDS ORDERED: guaiFENesin 100 MG/5 ML Soln 5 ML UD Cup PO PRN (12:48)
[2018-09-17] MEDS ORDERED: traMADol 50 MG Tab PO PRN (12:51)
[2018-09-17] MEDS: Piperacillin/Tazobactam 3.375 GM in Sodium Chloride 0.9% 50 ML IV SCH ×2 (15:00→19:06)
[2018-09-17] MEDS: Saccharomyces Boulardii (Probiotic) 250 MG Cap PO SCH ×2 (15:01→20:42)
[2018-09-17] MEDS: risperiDONE 0.25 MG Tab PO SCH (15:01)
[2018-09-17] MEDS: PHENobarbital 32.4 MG Tab PO SCH ×2 (15:02→21:48)
[2018-09-17] MEDS: Gabapentin 100 MG Cap PO SCH ×2 (15:02→20:43)
[2018-09-17] MEDS: Furosemide 20 MG Tab PO SCH (15:02)
[2018-09-17] MEDS: Memantine 10 MG Tab PO SCH (20:42)
[2018-09-17] MEDS: Ketotifen 0.025% Ophth Soln 5 ML Bottle EYEBOTH SCH (20:43)
[2018-09-17] MEDS: risperiDONE 0.5 MG Tab PO SCH (20:43)
[2018-09-17] MEDS: traMADol 50 MG Tab PO SCH (20:44)
[2018-09-17] MEDS: Donepezil 10 MG Tab PO SCH (22:34)
[2018-09-18] MEDS: Piperacillin/Tazobactam 3.375 GM in Sodium Chloride 0.9% 50 ML IV SCH ×4 (00:45→18:49)
[2018-09-18] MEDS: Levothyroxine 100 MCG Tab PO SCH (06:26)
[2018-09-18] MEDS: Pantoprazole 40 MG Tab.CR PO SCH (06:26)
[2018-09-18] MEDS: risperiDONE 0.5 MG Tab PO SCH ×2 (08:58→21:13)
[2018-09-18] MEDS: Citalopram 20 MG Tab PO SCH (08:59)
[2018-09-18] MEDS: Saccharomyces Boulardii (Probiotic) 250 MG Cap PO SCH ×2 (08:59→21:13)
[2018-09-18] MEDS: Rosuvastatin 10 MG Tab PO SCH (08:59)
[2018-09-18] MEDS: Docusate Sodium 100 MG Cap PO SCH (08:59)
[2018-09-18] MEDS: Ketotifen 0.025% Ophth Soln 5 ML Bottle EYEBOTH SCH ×2 (08:59→21:14)
[2018-09-18] MEDS: Potassium Chloride 20 MEQ Tab.ER PO SCH (08:59)
[2018-09-18] MEDS: Aspirin 81 MG Tab.EC PO SCH (08:59)
[2018-09-18] MEDS: Furosemide 20 MG Tab PO SCH (08:59)
[2018-09-18] MEDS: Memantine 10 MG Tab PO SCH ×2 (09:00→21:13)
[2018-09-18] MEDS: PHENobarbital 32.4 MG Tab PO SCH ×2 (09:00→21:13)
[2018-09-18] MEDS: Cholecalciferol (Vitamin D3) 25 MCG Tab PO SCH (09:00)
[2018-09-18] MEDS: Polyethylene Glycol 3350 Powder 17 GM Packet PO SCH (09:00)
[2018-09-18] MEDS: Multivitamin Tab PO SCH (09:00)
[2018-09-18] MEDS: traMADol 50 MG Tab PO SCH ×2 (09:03→21:14)
[2018-09-18] MEDS: Gabapentin 100 MG Cap PO SCH ×3 (09:03→21:13)
[2018-09-18] MEDS: Tamsulosin 0.4 MG Cap.ER PO SCH (13:03)
[2018-09-18] MEDS: risperiDONE 0.25 MG Tab PO SCH (13:03)
[2018-09-18] MEDS: Sodium Chloride 0.9% 10 ML Syringe FLUSH PRN ×2 (13:11→19:27)
--- NOTE | 2018-09-18 15:27 | PCM.PN ---
- General Info Date of Service: 09/18/18 Subjective Update: Patient having productive cough of clear sputum, feels breathing is better. Weight up 4 pounds but urinating well. No other complaints. - Patient Data Vitals - Most Recent: Last Vital Signs Temp 36.7 C 09/18/18 12:00 Pulse 72 09/18/18 12:00 Resp 18 09/18/18 12:00 BP 125/69 09/18/18 12:00 Pulse Ox 96 09/18/18 12:00 Weight - Most Recent: 102.058 kg I&O - Last 24 Hours: Intake & Output 09/18/18 09/18/18 09/18/18 06:59 14:59 22:59 Intake Total 300 50 Balance 300 50 Lab Results Last 24 Hours: Laboratory Results - last 24 hr 09/17/18 09/18/18 09/18/18 Range/Units 20:51 06:31 06:50 WBC 5.7 (4.5-12.0) X10-3/uL RBC 4.10 L (4.30-5.75) x10(6)uL Hgb 12.3 L (13.5-17.8) g/dL Hct 36.2 (30.0-51.3) % MCV 88.3 (80-96) fL MCH 30.0 (27.7-33.6) pg MCHC 33.9 (32.2-35.4) g/dL RDW 14.0 (11.5-15.5) % Plt Count 251 (125-369) X10(3)uL MPV 7.2 L (7.4-10.4) fL Neut % (Auto) 66.3 (46-82) % Lymph % (Auto) 17.5 (13-37) % Mcleod % (Auto) 10.1 (4-12) % Eos % (Auto) 5 (1.0-5.0) % Baso % (Auto) 1 (0-2) % Neut # (Auto) 3.8 (1.6-8.3) # Lymph # (Auto) 1.0 (0.6-5.0) # Mcleod # (Auto) 0.6 (0.0-1.3) # Eos # (Auto) 0.3 (0.0-0.8) # Baso # (Auto) 0.0 (0.0-0.2) # Sodium (135-145) mmol/L Potassium (3.5-5.3) mmol/L Chloride (100-110) mmol/L Carbon Dioxide (21-32) mmol/L BUN (7-18) mg/dL Creatinine (0.70-1.30) mg/dL Est Cr Clr Drug Dosing mL/min Estimated GFR (MDRD) (>60) BUN/Creatinine Ratio (9-20) Glucose (80-116) mg/dL POC Glucose 117 H 83 (80-116) mg/dL Calcium (8.6-10.2) mg/dL 09/18/18 Range/Units 06:50 WBC (4.5-12.0) X10-3/uL RBC (4.30-5.75) x10(6)uL Hgb (13.5-17.8) g/dL Hct (30.0-51.3) % MCV (80-96) fL MCH (27.7-33.6) pg MCHC (32.2-35.4) g/dL RDW (11.5-15.5) % Plt Count (125-369) X10(3)uL MPV (7.4-10.4) fL Neut % (Auto) (46-82) % Lymph % (Auto) (13-37) % [place]cleod % (Auto) (4-12) % Eos % (Auto) (1.0-5.0) % Baso % (Auto) (0-2) % Neut # (Auto) (1.6-8.3) # Lymph # (Auto) (0.6-5.0) # Mcleod # (Auto) (0.0-1.3) # Eos # (Auto) (0.0-0.8) # Baso # (Auto) (0.0-0.2) # Sodium 140 (135-145) mmol/L Potassium 3.9 (3.5-5.3) mmol/L Chloride 103 D (100-110) mmol/L Carbon Dioxide 31 (21-32) mmol/L BUN 14 (7-18) mg/dL Creatinine 0.8 (0.70-1.30) mg/dL Est Cr Clr Drug Dosing 74.81 mL/min Estimated GFR (MDRD) > 60 (>60) BUN/Creatinine Ratio 17.5 (9-20) Glucose 84 (80-116) mg/dL POC Glucose (80-116) mg/dL Calcium 8.8 (8.6-10.2) mg/dL Siddhartha Results Last 24 Hours: Microbiology 09/17/18 02:30 Aerobic Blood Culture - Preliminary Blood - Venous - Lab Draw NO GROWTH AFTER 1 DAY Anaerobic Blood Culture - Preliminary NO GROWTH AFTER 1 DAY 09/17/18 02:20 Aerobic Blood Culture - Preliminary Blood - Venous NO GROWTH AFTER 1 DAY Anaerobic Blood Culture - Preliminary NO GROWTH AFTER 1 DAY 09/17/18 01:50 Urine Culture - Preliminary Urine, Catheterized NO GROWTH AFTER 1 DAY Med Orders - Current: Current Medications Acetaminophen (Tylenol) 650 mg RECTAL Q4H PRN PRN Reason: Mild pain/fever Aspirin (Halfprin) 81 mg PO DAILY [facility] Last Admin: 09/18/18 08:59 Dose: 81 mg Bisacodyl (Dulcolax) 10 mg RECTAL Q72H PRN PRN Reason: Constipation Cholecalciferol (Vitamin D3) 25 mcg PO DAILY [facility] Last Admin: 09/18/18 09:00 Dose: 25 mcg Citalopram Hydrobromide (Celexa) 20 mg PO DAILY [facility] Last Admin: 09/18/18 08:59 Dose: 20 mg Docusate Sodium (Colace) 100 mg PO DAILY [facility] Last Admin: 09/18/18 08:59 Dose: 100 mg Donepezil HCl (Aricept) 10 mg PO BEDTIME [facility] Last Admin: 09/17/18 22:34 Dose: 10 mg Furosemide (Lasix) 20 mg PO DAILY [facility] Last Admin: 09/18/18 08:59 Dose: 20 mg Gabapentin (Neurontin) 100 mg PO TID [facility] Last Admin: 09/18/18 13:03 Dose: 100 mg Guaifenesin (Robitussin) 200 mg PO Q4H PRN PRN Reason: Cough Piperacillin Sod/Tazobactam (Sod 3.375 gm/ Sodium Chloride) 50 mls @ 100 mls/ hr IV Q6H [facility] Last Admin: 09/18/18 12:58 Dose: 100 mls/hr Ketotifen Fumarate (Ketotifen 0.025% Ophth Soln) 0 ml EYEBOTH BID [facility] Last Admin: 09/18/18 08:59 Dose: 1 drop Levothyroxine Sodium (Synthroid) 100 mcg PO DAILY@0600 [facility] Last Admin: 09/18/18 06:26 Dose: 100 mcg Memantine (Namenda) 10 mg PO BID [facility] Last Admin: 09/18/18 09:00 Dose: 10 mg Multivitamins/Minerals/Vitamin C (Tab-A-Marlena) 1 tab PO DAILY [facility] Last Admin: 09/18/18 09:00 Dose: 1 tab Pantoprazole Sodium (Protonix) 40 mg PO DAILY@0600 [facility] Last Admin: 09/18/18 06:26 Dose: 40 mg Phenobarbital (Phenobarbital) 97.2 mg PO BID [facility] Last Admin: 09/18/18 09:00 Dose: 97.2 mg Polyethylene Glycol (Miralax) 17 gm PO DAILY [facility] Last Admin: 09/18/18 09:00 Dose: Not Given Potassium Chloride (Klor-Con M20) 20 meq PO DAILY [facility] Last Admin: 09/18/18 08:59 Dose: 20 meq Risperidone (Risperidal) 0.25 mg PO 12 [facility] Last Admin: 09/18/18 13:03 Dose: 0.25 mg Risperidone (Risperidal) 0.5 mg PO DAILY@0800 [facility] Last Admin: 09/18/18 08:58 Dose: 0.5 mg Risperidone (Risperidal) 1.5 mg PO BEDTIME [facility] Last Admin: 09/17/18 20:43 Dose: 1.5 mg Rosuvastatin Calcium (Crestor) 10 mg PO DAILY [facility] Last Admin: 09/18/18 08:59 Dose: 10 mg Saccharomyces Boulardii (Florastor) 250 mg PO BID [facility] Last Admin: 09/18/18 08:59 Dose: 250 mg Sodium Chloride (Saline Flush) 10 ml FLUSH ASDIRECTED PRN PRN Reason: Keep Vein Open Last Admin: 09/18/18 13:11 Dose: 10 ml Sodium Chloride (Saline Flush) 10 ml FLUSH ASDIRECTED PRN PRN Reason: Keep Vein Open Tamsulosin HCl (Flomax) 0.4 mg PO 1200 [facility] Last Admin: 09/18/18 13:03 Dose: 0.4 mg Tramadol HCl (Ultram) 25 mg PO BID [facility] Last Admin: 09/18/18 09:03 Dose: 25 mg Tramadol HCl (Ultram) 25 mg PO Q6H PRN PRN Reason: Pain Discontinued Medications Acetaminophen (Tylenol) 650 mg RECTAL NOW ONE Stop: 09/17/18 02:06 Last Admin: 09/17/18 02:42 Dose: 650 mg Sodium Chloride (Normal Saline) 1,000 mls @ 999 mls/hr IV .BOLUS ONE Stop: 09/17/18 03:04 Last Admin: 09/17/18 02:35 Dose: 999 mls/hr Levofloxacin/Dextrose 750 mg/ (Premix) 150 mls @ 100 mls/hr IV Q24H [facility] Last Admin: 09/17/18 02:53 Dose: 100 mls/hr Levofloxacin/Dextrose (Levaquin In D5w 750 Mg/150 Ml) Confirm Administered Dose 150 mls @ as directed IV .STK-MED ONE Stop: 09/17/18 02:52 Last Admin: 09/17/18 03:01 Dose: Not Given Sodium Chloride (Normal Saline) 1,000 mls @ 125 mls/hr IV ASDIRECTED [facility] Last Admin: 09/17/18 08:42 Dose: 75 mls/hr Ondansetron HCl (Zofran) 4 mg IV Q6H PRN PRN Reason: Nausea/Vomiting - Exam General: Alert, Cooperative, No Acute Distress Lungs: Normal Respiratory Effort, Rales (limited due to brace) Cardiovascular: Other (unable due to brace) GI/Abdominal Exam: Normal Bowel Sounds (lower quadrants), Soft Extremities: Pedal Edema (trace) - Problem List & Annotations (1) Pneumonia SNOMED Code(s): 436749531 Code(s): J18.9 - PNEUMONIA, UNSPECIFIED ORGANISM Status: Acute Current Visit: Yes Qualifiers: Pneumonia type: due to unspecified organism Laterality: left Lung location: lower lobe of lung Qualified Code(s): J18.1 - Lobar pneumonia, unspecified organism (2) Dementia SNOMED Code(s): 59253497 Code(s): F03.90 - UNSPECIFIED DEMENTIA WITHOUT BEHAVIORAL DISTURBANCE Status: Acute Current Visit: No Qualifiers: Dementia type: Alzheimer's disease Annotation/Comment:: continue home medications. Plan to discontinue medications not in-line with comfort measures. I would increase Risperidol to 0.5 mg bid and follow up with PCP. - Problem List Review Problem List Initiated/Reviewed/Updated: Yes - My Orders Last 24 Hours: My Active Orders 09/17/18 17:02 Blood Glucose Check, Bedside [RC] 09/17/18 21:00 Donepezil [Aricept] 10 mg PO BEDTIME Ketotifen [Ketotifen 0.025% Ophth Soln] 0 ml EYEBOTH BID Memantine [Namenda] 10 mg PO BID risperiDONE [RisperiDAL] 1.5 mg PO BEDTIME traMADol [Ultram] 25 mg PO BID 09/18/18 06:00 Levothyroxine [Synthroid] 100 mcg PO DAILY@06 Pantoprazole [ProTONIX] 40 mg PO DAILY@59909/18/18 08:00 risperiDONE [RisperiDAL] 0.5 mg PO DAILY@79909/18/18 09:00 Aspirin [Halfprin] 81 mg PO DAILY Cholecalciferol (Vitamin D3) [Vitamin D3] 25 mcg PO DAILY Citalopram [Celexa] 20 mg PO DAILY Docusate Sodium [Colace] 100 mg PO DAILY Multivitamins [Tab-A-Marlena] 1 tab PO DAILY Polyethylene Glycol 3350 [MiraLAX] 17 gm PO DAILY Potassium Chloride [Klor-Con M20] 20 meq PO DAILY Rosuvastatin [Crestor] 10 mg PO DAILY 09/18/18 12:00 Tamsulosin [Flomax] 0.4 mg PO 1200 - Plan Plan:: 1. Zosyn 3.375 gram IV q6h for better coverage for aspiration. Aspiration precautions. 2. Continue regular diet, soft textures, nectar thickened liquids for meals and free water between meals. 3. DNR/DNI. 4. Adjust treatments as necessary, repeat labs in am.
[2018-09-18] MEDS: Donepezil 10 MG Tab PO SCH (21:12)
[2018-09-19] MEDS: Piperacillin/Tazobactam 3.375 GM in Sodium Chloride 0.9% 50 ML IV SCH ×2 (00:17→06:54)
[2018-09-19] MEDS: Sodium Chloride 0.9% 10 ML Syringe FLUSH PRN ×2 (00:52→07:25)
[2018-09-19] MEDS: Levothyroxine 100 MCG Tab PO SCH (06:08)
[2018-09-19] MEDS: Pantoprazole 40 MG Tab.CR PO SCH (06:09)
[2018-09-19] MEDS: Citalopram 20 MG Tab PO SCH (08:50)
[2018-09-19] MEDS: risperiDONE 0.5 MG Tab PO SCH (08:50)
[2018-09-19] MEDS: Docusate Sodium 100 MG Cap PO SCH (08:51)
[2018-09-19] MEDS: Potassium Chloride 20 MEQ Tab.ER PO SCH (08:51)
[2018-09-19] MEDS: Rosuvastatin 10 MG Tab PO SCH (08:51)
[2018-09-19] MEDS: Saccharomyces Boulardii (Probiotic) 250 MG Cap PO SCH (08:51)
[2018-09-19] MEDS: Aspirin 81 MG Tab.EC PO SCH (08:51)
[2018-09-19] MEDS: Ketotifen 0.025% Ophth Soln 5 ML Bottle EYEBOTH SCH (08:51)
[2018-09-19] MEDS: PHENobarbital 32.4 MG Tab PO SCH (08:52)
[2018-09-19] MEDS: Gabapentin 100 MG Cap PO SCH (08:52)
[2018-09-19] MEDS: Multivitamin Tab PO SCH (08:52)
[2018-09-19] MEDS: Polyethylene Glycol 3350 Powder 17 GM Packet PO SCH (08:52)
[2018-09-19] MEDS: Memantine 10 MG Tab PO SCH (08:52)
[2018-09-19] MEDS: Furosemide 20 MG Tab PO SCH (08:52)
[2018-09-19] MEDS: traMADol 50 MG Tab PO SCH (08:53)
[2018-09-19] MEDS: Cholecalciferol (Vitamin D3) 25 MCG Tab PO SCH (08:53)
--- NOTE | 2018-09-19 11:39 | PCM.DCSUM1 ---
Discharge Summary - Hospital Course HPI Initial Comments: 77-year-old male resident of [facility] had fever 101.8 and dark urine (that was felt was blood) by the nursing staff last night. Having wet respirations and cough with an O2 saturation of 90% on room air. Patient has dementia so exam is limited. He denies chest pain, nausea, vomiting or abdominal pain. The patient does have a TLSO brace on secondary to several compression fractures that is on at all times so examination is also limited. Diagnosis: Stroke: No - Discharge Data Discharge Date: 09/19/18 Discharge Disposition: DC/Tfer to SNF 03 Condition: Good - Discharge Diagnosis/Problem(s) (1) Pneumonia SNOMED Code(s): 756922735 ICD Code: J18.9 - PNEUMONIA, UNSPECIFIED ORGANISM Status: Acute Current Visit: Yes Qualifiers: Pneumonia type: aspiration pneumonia Laterality: unspecified laterality Lung location: unspecified part of lung (2) Dementia SNOMED Code(s): 97891162 ICD Code: F03.90 - UNSPECIFIED DEMENTIA WITHOUT BEHAVIORAL DISTURBANCE Status: Acute Current Visit: No Problem Details: Qualifiers: Dementia type: Alzheimer's disease - Patient Summary/Data Hospital Course: Patient was switched from Levofloxacin to Zosyn, breathing improved, was weaned off oxygen yesterday. WBC return to normal. Kidney function has remained stable. IV fluids were discontinued on Monday, resumed patient's Lasix. Has been afebrile during hospital course. Will return to [facility] to complete 7 days oral Amoxicillin/Clavulanate. To resume previous diet and rehab orders. - Patient Instructions Diet, Other: regular diet, soft textures, resume previous diet orders for liquids Notify Provider of: Fever, Nausea and/or Vomiting - Discharge Plan *PRESCRIPTION DRUG MONITORING PROGRAM REVIEWED*: No *COPY OF PRESCRIPTION DRUG MONITORING REPORT IN PATIENT VANNESA: No Prescriptions/Med Rec: Amoxicillin/Potassium Clav [Amox Tr-K Clv 875-125 mg Tab] 1 each PO Q12HR 7 Days #14 tablet Saccharomyces Boulardii [Florastor] 250 mg PO BID 7 Days #14 cap Home Medications: Home Meds Albuterol [IJD: Ventolin HFA] 2 puff INH Q4HR PRN 11/19/16 [History] Donepezil HCl [Aricept] 10 mg PO BEDTIME 10/14/17 [History] Furosemide [Lasix] 20 mg PO DAILY 11/19/16 [History] Ketotifen [Ketotifen 0.025% Ophth Soln] 1 drop EYEBOTH BID 11/19/16 [History] Loperamide [Imodium] 2 mg PO ASDIRECTED PRN MDD 4 11/19/16 [History] Omeprazole 20 mg PO DAILY 11/19/16 [History] PHENobarbital [Phenobarbital] 97.2 mg PO BID 11/19/16 [History] Potassium Chloride [Klor-Con 10] 20 meq PO DAILY 11/19/16 [History] Memantine HCl 10 mg PO BID 10/12/17 [History] Tamsulosin [Flomax] 0.4 mg PO 1200 10/12/17 [History] risperiDONE 0.5 mg PO 08 10/12/17 [History] traMADol [Ultram] 25 mg PO Q6H PRN 10/12/17 [History] Albuterol/Ipratropium [DuoNeb 3.0-0.5 MG/3 ML] 1 vial INH Q6H PRN 09/17/18 [ History] Aspirin [Adult Low Dose Aspirin EC] 81 mg PO DAILY 09/17/18 [History] Bisacodyl [Dulcolax] 10 mg RC Q72H PRN 09/17/18 [History] Cholecalciferol (Vitamin D3) [Vitamin D3] 1,000 unit PO DAILY 09/17/18 [History] Citalopram Hydrobromide [Celexa] 20 mg PO DAILY 09/17/18 [History] [place] Starch 1 applic TOP ASDIRECTED PRN 09/17/18 [History] Docusate Sodium [Colace] 100 mg PO DAILY 09/17/18 [History] Eucalyptus/Menthol [Cough Drops] 1 evan PO ASDIRECTED PRN 09/17/18 [History] Gabapentin [Neurontin] 100 mg PO TID 09/17/18 [History] Levothyroxine [Synthroid] 100 mcg PO DAILY 09/17/18 [History] Magnesium Hydroxide [Milk of Magnesia] 30 ml PO DAILY PRN 09/17/18 [History] Multivitamin [Multivitamins] 1 cap PO DAILY 09/17/18 [History] Polyethylene Glycol 3350 [MiraLAX] 17 gm PO DAILY 09/17/18 [History] Rosuvastatin [Crestor] 10 mg PO DAILY 09/17/18 [History] guaiFENesin 10 ml PO Q4H PRN 09/17/18 [History] risperiDONE 0.25 mg PO 12 09/17/18 [History] risperiDONE 1.5 mg PO BEDTIME 09/17/18 [History] traMADol [Ultram] 25 mg PO BID 09/17/18 [History] Amoxicillin/Potassium Clav [Amox Tr-K Clv 875-125 mg Tab] 1 each PO Q12HR 7 Days #14 tablet 09/19/18 [Rx] Saccharomyces Boulardii [Florastor] 250 mg PO BID 7 Days #14 cap 09/19/18 [Rx] Oxygen Therapy Mode: Room Air Forms: ED Department Discharge Referrals: Ottoniel Diaz MD [Primary Care Provider] - - Discharge Summary/Plan Comment DC Time >30 min.: No - Patient Data Vitals - Most Recent: Last Vital Signs Temp 36.1 C 09/19/18 04:00 Pulse 63 09/19/18 04:00 Resp 18 09/19/18 04:00 BP 110/70 09/19/18 04:00 Pulse Ox 94 L 09/19/18 04:00 Weight - Most Recent: 98.004 kg I&O - Last 24 hours: Intake & Output 09/18/18 09/19/18 09/19/18 22:59 06:59 14:59 Intake Total 50 200 Balance 50 200 Lab Results - Last 24 hrs: Laboratory Results - last 24 hr 09/19/18 09/19/18 Range/Units 06:01 06:02 Sodium 142 (135-145) mmol/L Potassium 3.9 (3.5-5.3) mmol/L Chloride 102 (100-110) mmol/L Carbon Dioxide 33 H (21-32) mmol/L BUN 10 (7-18) mg/dL Creatinine 0.7 (0.70-1.30) mg/dL Est Cr Clr Drug Dosing 85.50 mL/min Estimated GFR (MDRD) > 60 (>60) BUN/Creatinine Ratio 14.3 (9-20) Glucose 82 (80-116) mg/dL POC Glucose 85 (80-116) mg/dL Calcium 9.1 (8.6-10.2) mg/dL EDY Results - Last 24 hrs: Microbiology 09/17/18 01:50 Urine Culture - Final Urine, Catheterized NO GROWTH AFTER 2 DAYS 09/17/18 02:30 Aerobic Blood Culture - Preliminary Blood - Venous - Lab Draw NO GROWTH AFTER 2 DAYS Anaerobic Blood Culture - Preliminary NO GROWTH AFTER 2 DAYS 09/17/18 02:20 Aerobic Blood Culture - Preliminary Blood - Venous NO GROWTH AFTER 2 DAYS Anaerobic Blood Culture - Preliminary NO GROWTH AFTER 2 DAYS Med Orders - Current: Current Medications Acetaminophen (Tylenol) 650 mg RECTAL Q4H PRN PRN Reason: Mild pain/fever Aspirin (Halfprin) 81 mg PO DAILY [facility] Last Admin: 09/19/18 08:51 Dose: 81 mg Bisacodyl (Dulcolax) 10 mg RECTAL Q72H PRN PRN Reason: Constipation Cholecalciferol (Vitamin D3) 25 mcg PO DAILY [facility] Last Admin: 09/19/18 08:53 Dose: 25 mcg Citalopram Hydrobromide (Celexa) 20 mg PO DAILY [facility] Last Admin: 09/19/18 08:50 Dose: 20 mg Docusate Sodium (Colace) 100 mg PO DAILY [facility] Last Admin: 09/19/18 08:51 Dose: 100 mg Donepezil HCl (Aricept) 10 mg PO BEDTIME [facility] Last Admin: 09/18/18 21:12 Dose: 10 mg Furosemide (Lasix) 20 mg PO DAILY [facility] Last Admin: 09/19/18 08:52 Dose: 20 mg Gabapentin (Neurontin) 100 mg PO TID [facility] Last Admin: 09/19/18 08:52 Dose: 100 mg Guaifenesin (Robitussin) 200 mg PO Q4H PRN PRN Reason: Cough Piperacillin Sod/Tazobactam (Sod 3.375 gm/ Sodium Chloride) 50 mls @ 100 mls/ hr IV Q6H [facility] Last Admin: 09/19/18 06:54 Dose: 100 mls/hr Ketotifen Fumarate (Ketotifen 0.025% Ophth Soln) 0 ml EYEBOTH BID [facility] Last Admin: 09/19/18 08:51 Dose: 1 drop Levothyroxine Sodium (Synthroid) 100 mcg PO DAILY@0600 [facility] Last Admin: 09/19/18 06:08 Dose: 100 mcg Memantine (Namenda) 10 mg PO BID [facility] Last Admin: 09/19/18 08:52 Dose: 10 mg Multivitamins/Minerals/Vitamin C (Tab-A-Marlena) 1 tab PO DAILY [facility] Last Admin: 09/19/18 08:52 Dose: 1 tab Pantoprazole Sodium (Protonix) 40 mg PO DAILY@0600 [facility] Last Admin: 09/19/18 06:09 Dose: 40 mg Phenobarbital (Phenobarbital) 97.2 mg PO BID [facility] Last Admin: 09/19/18 08:52 Dose: 97.2 mg Polyethylene Glycol (Miralax) 17 gm PO DAILY [facility] Last Admin: 09/19/18 08:52 Dose: 17 gm Potassium Chloride (Klor-Con M20) 20 meq PO DAILY [facility] Last Admin: 09/19/18 08:51 Dose: 20 meq Risperidone (Risperidal) 0.25 mg PO 12 [facility] Last Admin: 09/18/18 13:03 Dose: 0.25 mg Risperidone (Risperidal) 0.5 mg PO DAILY@0800 [facility] Last Admin: 09/19/18 08:50 Dose: 0.5 mg Risperidone (Risperidal) 1.5 mg PO BEDTIME [facility] Last Admin: 09/18/18 21:13 Dose: 1.5 mg Rosuvastatin Calcium (Crestor) 10 mg PO DAILY [facility] Last Admin: 09/19/18 08:51 Dose: 10 mg Saccharomyces Boulardii (Florastor) 250 mg PO BID [facility] Last Admin: 09/19/18 08:51 Dose: 250 mg Sodium Chloride (Saline Flush) 10 ml FLUSH ASDIRECTED PRN PRN Reason: Keep Vein Open Last Admin: 09/19/18 07:25 Dose: 10 ml Sodium Chloride (Saline Flush) 10 ml FLUSH ASDIRECTED PRN PRN Reason: Keep Vein Open Tamsulosin HCl (Flomax) 0.4 mg PO 1200 [facility] Last Admin: 09/18/18 13:03 Dose: 0.4 mg Tramadol HCl (Ultram) 25 mg PO BID [facility] Last Admin: 09/19/18 08:53 Dose: 25 mg Tramadol HCl (Ultram) 25 mg PO Q6H PRN PRN Reason: Pain Discontinued Medications Acetaminophen (Tylenol) 650 mg RECTAL NOW ONE Stop: 09/17/18 02:06 Last Admin: 09/17/18 02:42 Dose: 650 mg Sodium Chloride (Normal Saline) 1,000 mls @ 999 mls/hr IV .BOLUS ONE Stop: 09/17/18 03:04 Last Admin: 09/17/18 02:35 Dose: 999 mls/hr Levofloxacin/Dextrose 750 mg/ (Premix) 150 mls @ 100 mls/hr IV Q24H [facility] Last Admin: 09/17/18 02:53 Dose: 100 mls/hr Levofloxacin/Dextrose (Levaquin In D5w 750 Mg/150 Ml) Confirm Administered Dose 150 mls @ as directed IV .STK-MED ONE Stop: 09/17/18 02:52 Last Admin: 09/17/18 03:01 Dose: Not Given Sodium Chloride (Normal Saline) 1,000 mls @ 125 mls/hr IV ASDIRECTED [facility] Last Admin: 09/17/18 08:42 Dose: 75 mls/hr Ondansetron HCl (Zofran) 4 mg IV Q6H PRN PRN Reason: Nausea/Vomiting - Exam General: Reports: Alert, Cooperative, No Acute Distress Lungs: Reports: Normal Respiratory Effort, Decreased Breath Sounds. Denies: Crackles, Rales, Rhonchi Cardiovascular: Reports: Regular Rate, Regular Rhythm GI/Abdominal Exam: Normal Bowel Sounds, Soft, Non-Tender, No Distention Skin: Reports: Warm, Dry
[2018-09-19] MEDS: risperiDONE 0.25 MG Tab PO SCH (12:46)
[2018-09-19] MEDS: Tamsulosin 0.4 MG Cap.ER PO SCH (12:46)
== END 2018-09-19 12:40 | DRG 177 ==
LOC: FB.ED 01:44 → FB.MS 03:05
PROVIDERS: ADMIT Emergency Medicine; ATTEND Family Medicine
DX: A41.9 Sepsis, unspecified organism (principal); J18.1 Lobar pneumonia, unspecified organism; J69.0 Pneumonitis due to inhalation of food and vomit; J96.01 Acute respiratory failure with hypoxia; S32.009A Unspecified fracture of unspecified lumbar vertebra, initial encounter for closed fracture; E86.0 Dehydration; H54.7 Unspecified visual loss; H91.90 Unspecified hearing loss, unspecified ear; I10 Essential (primary) hypertension; E78.00 Pure hypercholesterolemia, unspecified; J44.9 Chronic obstructive pulmonary disease, unspecified; R32 Unspecified urinary incontinence; G30.9 Alzheimer's disease, unspecified; F02.80 Dementia in other diseases classified elsewhere, unspecified severity, without behavioral disturbance, psychotic disturbance, mood disturbance, and anxiety; F32.9 Major depressive disorder, single episode, unspecified; F41.9 Anxiety disorder, unspecified; E03.9 Hypothyroidism, unspecified; K76.0 Fatty (change of) liver, not elsewhere classified; Z88.5 Allergy status to narcotic agent; Z88.8 Allergy status to other drugs, medicaments and biological substances; Z66 Do not resuscitate; Z79.82 Long term (current) use of aspirin; Z79.890 Hormone replacement therapy; Z79.51 Long term (current) use of inhaled steroids; Z79.899 Other long term (current) drug therapy; M48.56XD Collapsed vertebra, not elsewhere classified, lumbar region, subsequent encounter for fracture with routine healing
CPT/HCPCS: 36415; 71045; 80053; 81001; 83605; 85025; 86140; 87040 ×2; 87086; 96365; 99285; A9270; J1956; J7030; 80048; 82962; 93010; J2543; J7050

== ENCOUNTER 2018-12-06 07:21 | Emergency (ER) | payer MEDICARE ==
[2018-12-06] MEDS ORDERED: methylPREDNISolone Sodium Succinate 125 MG/2 ML SDV IVPUSH ONE ×2 (09:31→09:33)
[2018-12-06] MEDS ORDERED: Albuterol/Ipratropium 3.0-0.5 MG/3 ML Neb Soln NEB ONE (09:32)
[2018-12-06] MEDS ORDERED: Sodium Chloride 0.9% 10 ML Syringe FLUSH PRN (09:59)
--- NOTE | 2018-12-06 10:38 | EDM.PDOC ---
ED HPI GENERAL MEDICAL PROBLEM - General Chief Complaint: Respiratory Problem Time Seen by Provider: 12/06/18 07:35 Source of Information: Reports: Family, Long-Term Records History Limitations: Reports: Other (dementia) - History of Present Illness INITIAL COMMENTS - FREE TEXT/NARRATIVE: Patient is a 77 YO WM who presented to the ED from [facility] because of lethargy, cough and low grade fever. HHis oxygen saturation was 88-89% on RA upon his arrival in the Ed and not in any respiratory distress. - Related Data Allergies Allergy/AdvReac Type Severity Reaction Status Date / Time acetaminophen Allergy Abdominal Verified 12/06/18 08:25 [From Darvocet-N] Pain hydrocodone Allergy Abdominal Verified 12/06/18 08:25 Pain oxycodone Allergy Abdominal Verified 12/06/18 08:25 Pain propoxyphene Allergy Abdominal Verified 12/06/18 08:25 [From Darvocet-N] Pain valdecoxib [From Bextra] Allergy Abdominal Verified 12/06/18 08:25 Pain Home Meds: Home Meds Albuterol [IJD: Ventolin HFA] 2 puff INH Q4HR PRN 11/19/16 [History] Donepezil HCl [Aricept] 10 mg PO BEDTIME 11/19/16 [History] Furosemide [Lasix] 20 mg PO DAILY 11/19/16 [History] Ketotifen [Ketotifen 0.025% Ophth Soln] 1 drop EYEBOTH BID 11/19/16 [History] Loperamide [Imodium] 2 mg PO ASDIRECTED PRN MDD 4 11/19/16 [History] Omeprazole 20 mg PO DAILY 11/19/16 [History] PHENobarbital [Phenobarbital] 97.2 mg PO BID 11/19/16 [History] Potassium Chloride [Klor-Con 10] 20 meq PO DAILY 11/19/16 [History] Memantine HCl 10 mg PO BID 10/12/17 [History] Tamsulosin [Flomax] 0.4 mg PO 1200 10/12/17 [History] risperiDONE 0.5 mg PO 08 10/12/17 [History] traMADol [Ultram] 25 mg PO Q6H PRN 10/12/17 [History] Albuterol/Ipratropium [DuoNeb 3.0-0.5 MG/3 ML] 1 vial INH Q6H PRN 09/17/18 [ History] Aspirin [Adult Low Dose Aspirin EC] 81 mg PO DAILY 09/17/18 [History] Bisacodyl [Dulcolax] 10 mg RC Q72H PRN 09/17/18 [History] Cholecalciferol (Vitamin D3) [Vitamin D3] 1,000 unit PO DAILY 09/17/18 [History] Citalopram Hydrobromide [Celexa] 20 mg PO DAILY 09/17/18 [History] [place] Starch 1 applic TOP ASDIRECTED PRN 09/17/18 [History] Docusate Sodium [Colace] 100 mg PO DAILY 09/17/18 [History] Eucalyptus/Menthol [Cough Drops] 1 evan PO ASDIRECTED PRN 09/17/18 [History] Gabapentin [Neurontin] 100 mg PO TID 09/17/18 [History] Levothyroxine [Synthroid] 100 mcg PO DAILY 09/17/18 [History] Magnesium Hydroxide [Milk of Magnesia] 30 ml PO DAILY PRN 09/17/18 [History] Multivitamin [Multivitamins] 1 cap PO DAILY 09/17/18 [History] Polyethylene Glycol 3350 [MiraLAX] 17 gm PO DAILY 09/17/18 [History] Rosuvastatin [Crestor] 10 mg PO DAILY 09/17/18 [History] guaiFENesin 10 ml PO Q4H PRN 09/17/18 [History] risperiDONE 0.25 mg PO 12 09/17/18 [History] risperiDONE 1.5 mg PO BEDTIME 09/17/18 [History] traMADol [Ultram] 25 mg PO BID 09/17/18 [History] Amoxicillin/Potassium Clav [Amox Tr-K Clv 875-125 mg Tab] 1 each PO Q12HR 7 Days #14 tablet 09/19/18 [Rx] Saccharomyces Boulardii [Florastor] 250 mg PO BID 7 Days #14 cap 09/19/18 [Rx] Azithromycin [Zithromax] 500 mg PO DAILY #5 tab 12/06/18 [Rx] predniSONE [Prednisone] 40 mg PO DAILY #10 tablet 12/06/18 [Rx] Past Medical History HEENT History: Reports: Hard of Hearing, Impaired Vision, Other (See Below) Other HEENT History: conjunctivitis Cardiovascular History: Reports: High Cholesterol, Hypertension Other Cardiovascular History: peripheral edema Respiratory History: Reports: COPD, Pneumonia, Recurrent, Other (See Below) Other Respiratory History: asp pneumonia Gastrointestinal History: Reports: Chronic Constipation, GERD, GI Bleed Other Gastrointestinal History: fatty liver Genitourinary History: Reports: BPH, Urinary Incontinence Musculoskeletal History: Reports: Fracture, Other (See Below) Other Musculoskeletal History: uses a full body lift,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, must wear back brace at all times Neurological History: Reports: Alzheimers Disease, Seizure Psychiatric History: Reports: Anxiety, Dementia, Depression, Other (See Below) Other Psychiatric History: delusional disorders Endocrine/Metabolic History: Reports: Hypothyroidism, Obesity/BMI 30+ Oncologic (Cancer) History: Reports: Prostate - Infectious Disease History Infectious Disease History: Reports: Chicken Pox - Past Surgical History Cardiovascular Surgical History: Reports: None Respiratory Surgical History: Reports: None Neurological Surgical History: Reports: None Oncologic Surgical History: Reports: None Social & Family History - Family History Family Medical History: Unobtainable - Tobacco Use Smoking Status *Q: Unknown Ever Smoked - Caffeine Use Caffeine Use: Reports: Coffee - Recreational Drug Use Recreational Drug Use: No - Living Situation & Occupation Living situation: Reports: Extended Care Facility (Lives in [facility]) Occupation: Retired ED ROS GENERAL - Review of Systems Review Of Systems: See Below Constitutional: Reports: No Symptoms HEENT: Reports: No Symptoms Respiratory: Reports: Shortness of Breath, Cough. Denies: Sputum Cardiovascular: Reports: No Symptoms, Chest Pain Endocrine: Reports: No Symptoms GI/Abdominal: Reports: No Symptoms : Reports: No Symptoms Musculoskeletal: Reports: No Symptoms Skin: Reports: No Symptoms ED EXAM, GENERAL - Physical Exam Exam: See Below Exam Limited By: No Limitations Eye Exam: Bilateral Eye: PERRL Ears: Normal External Exam, Normal Canal Ear Exam: Bilateral Ear: TM normal Nose: Normal Inspection, Normal Mucosa, No Blood Throat/Mouth: Normal Inspection, Normal Lips, Normal Teeth Head: Atraumatic, Normocephalic Neck: Normal Inspection, Supple, Non-Tender, Full Range of Motion Respiratory/Chest: No Respiratory Distress, Lungs Clear, No Accessory Muscle Use , Chest Non-Tender, Rhonchi, Stridor Cardiovascular: Normal Peripheral Pulses, Regular Rate, Rhythm, No Edema, No Gallop, No JVD GI/Abdominal: Normal Bowel Sounds, Soft, Non-Tender, No Organomegaly, No Distention, No Abnormal Bruit Back Exam: Normal Inspection, Full Range of Motion Extremities: Normal Inspection, Normal Range of Motion Neurological: Alert, Oriented, CN II-XII Intact Skin Exam: Warm Course - Vital Signs Text/Narrative:: Labs,CXR, discussed with patient and his siblings CXR-neg [id number] U/A-neg duoneb x1 solumedrol 125 mg IV x1 orotracheal suction and his oxygen saturation did improved to 95% on RA upon discharge We will start him on zithromax 500 mg po Qday x 5 days and prednisone 40 mg po qday x 5 days Last Recorded V/S: Last Vital Signs Temp 37.1 C 12/06/18 10:30 Pulse 74 12/06/18 11:15 Resp 18 12/06/18 11:15 BP 134/65 12/06/18 11:15 Pulse Ox 91 L 12/06/18 12:45 - Orders/Labs/Meds Orders: Active Orders 24 hr Category Date Time Status Oxygen Therapy Adult [Oxygen Therapy, ED] [RC] Care 12/06/18 07:21 Active ASDIRECTED RT Aerosol Therapy [RC] ASDIRECTED Care 12/06/18 09:32 Active Chest 1V Frontal [CR] Stat Exams 12/06/18 07:35 Taken CULTURE BLOOD [BC] Urgent Lab 12/06/18 07:40 Received CULTURE BLOOD [BC] Urgent Lab 12/06/18 07:45 Received Peripheral IV Insertion Adult [OM.PC] Routine Oth 12/06/18 09:59 Ordered Labs: Laboratory Tests 12/06/18 12/06/18 12/06/18 Range/Units 07:40 07:40 07:40 WBC 16.3 H (4.5-12.0) X10-3/uL RBC 4.34 (4.30-5.75) x10(6)uL Hgb 13.0 L (13.5-17.8) g/dL Hct 38.3 (30.0-51.3) % MCV 88.3 (80-96) fL MCH 30.0 (27.7-33.6) pg MCHC 34.0 (32.2-35.4) g/dL RDW 12.9 (11.5-15.5) % Plt Count 306 (125-369) X10(3)uL MPV 7.5 (7.4-10.4) fL Add Manual Diff Yes Neutrophils % (Manual) 92 H (46-82) % Lymphocytes % (Manual) 8 L (13-37) % Hypersegmented Neuts Many Toxic Granulation Moderate H (NOT SEEN) Sodium (135-145) mmol/L Potassium (3.5-5.3) mmol/L Chloride (100-110) mmol/L Carbon Dioxide (21-32) mmol/L BUN (7-18) mg/dL Creatinine (0.70-1.30) mg/dL Est Cr Clr Drug Dosing Estimated GFR (MDRD) (>60) BUN/Creatinine Ratio (9-20) Glucose (80-116) mg/dL Lactic Acid (0.4-2.2) mmol/L Calcium (8.6-10.2) mg/dL Total Bilirubin (0.1-1.3) mg/dL AST (5-25) IU/L ALT (12-36) U/L Alkaline Phosphatase (56-112) IU/L Troponin I < 0.017 L (<0.017-0.056) ng/mL NT-Pro-B Natriuret Pep 256 (<=450) pg/mL Total Protein (6.0-8.0) g/dL Albumin (3.2-4.6) g/dL Globulin g/dL Albumin/Globulin Ratio Urine Color Yellow (YELLOW) Urine Appearance Slightly cloudy (CLEAR) Urine pH 8.0 H (5.0-6.5) Ur Specific Robbins 1.015 (1.010-1.025) Urine Protein Negative (NEGATIVE) mg/dL Urine Glucose (UA) Normal (NORMAL) mg/dL Urine Ketones Negative (NEGATIVE) mg/dL Urine Occult Blood Moderate H (NEGATIVE) Urine Nitrite Negative (NEGATIVE) Urine Bilirubin Negative (NEGATIVE) Urine Urobilinogen Normal (NEGATIVE) mg/dL Ur Leukocyte Esterase Negative (NEGATIVE) Urine RBC >100 H (0-5) Urine WBC 0-5 (0-5) Ur Squamous Epith Cells Occasional (NS,R,O) Urine Bacteria Moderate H (NS) 12/06/18 12/06/18 Range/Units 07:40 07:40 WBC (4.5-12.0) X10-3/uL RBC (4.30-5.75) x10(6)uL Hgb (13.5-17.8) g/dL Hct (30.0-51.3) % MCV (80-96) fL MCH (27.7-33.6) pg MCHC (32.2-35.4) g/dL RDW (11.5-15.5) % Plt Count (125-369) X10(3)uL MPV (7.4-10.4) fL Add Manual Diff Neutrophils % (Manual) (46-82) % Lymphocytes % (Manual) (13-37) % Hypersegmented Neuts Toxic Granulation (NOT SEEN) Sodium 139 (135-145) mmol/L Potassium 4.0 (3.5-5.3) mmol/L Chloride 102 (100-110) mmol/L Carbon Dioxide 31 (21-32) mmol/L BUN 15 (7-18) mg/dL Creatinine 0.7 (0.70-1.30) mg/dL Est Cr Clr Drug Dosing TNP Estimated GFR (MDRD) > 60 (>60) BUN/Creatinine Ratio 21.4 H (9-20) Glucose 98 (80-116) mg/dL Lactic Acid 1.0 (0.4-2.2) mmol/L Calcium 8.4 L (8.6-10.2) mg/dL Total Bilirubin 0.3 (0.1-1.3) mg/dL AST 18 D (5-25) IU/L ALT 22 D (12-36) U/L Alkaline Phosphatase 132 H (56-112) IU/L Troponin I (<0.017-0.056) ng/mL NT-Pro-B Natriuret Pep (<=450) pg/mL Total Protein 7.9 (6.0-8.0) g/dL Albumin 2.8 L (3.2-4.6) g/dL Globulin 5.1 g/dL Albumin/Globulin Ratio 0.6 Urine Color (YELLOW) Urine Appearance (CLEAR) Urine pH (5.0-6.5) Ur Specific Robbins (1.010-1.025) Urine Protein (NEGATIVE) mg/dL Urine Glucose (UA) (NORMAL) mg/dL Urine Ketones (NEGATIVE) mg/dL Urine Occult Blood (NEGATIVE) Urine Nitrite (NEGATIVE) Urine Bilirubin (NEGATIVE) Urine Urobilinogen (NEGATIVE) mg/dL Ur Leukocyte Esterase (NEGATIVE) Urine RBC (0-5) Urine WBC (0-5) Ur Squamous Epith Cells (NS,R,O) Urine Bacteria (NS) Meds: Medications Discontinued Medications Generic Name Dose Route Start Last Admin Trade Name Freq PRN Reason Stop Dose Admin Albuterol/Ipratropium 3 ml 12/06/18 09:32 12/06/18 10:02 Duoneb 3.0-0.5 Mg/3 Ml NEB 12/06/18 09:33 3 ml ONETIME ONE Administration Methylprednisolone Sodium Succinate 125 mg 12/06/18 09:31 12/06/18 10:02 Solu-Medrol IVPUSH 12/06/18 09:32 125 mg ONETIME ONE Administration Methylprednisolone Sodium Succinate 125 mg 12/06/18 09:33 12/06/18 10:10 Solu-Medrol IVPUSH 12/06/18 09:34 Not Given ONETIME ONE Sodium Chloride 10 ml 12/06/18 09:59 12/06/18 07:45 Saline Flush FLUSH 10 ml ASDIRECTED PRN Administration Keep Vein Open Departure - Departure Time of Disposition: 11:40 Disposition: DC/Tfer to [facility] 03 Condition: Good Clinical Impression: COPD exacerbation - Discharge Information *PRESCRIPTION DRUG MONITORING PROGRAM REVIEWED*: No *COPY OF PRESCRIPTION DRUG MONITORING REPORT IN PATIENT VANNESA: No Prescriptions: Azithromycin [Zithromax] 500 mg PO DAILY #5 tab predniSONE [Prednisone] 40 mg PO DAILY #10 tablet Instructions: Chronic Obstructive Pulmonary Disease Exacerbation, [id number] Referrals: Ottoniel Diaz MD [Primary Care Provider] - Forms: ED Department Discharge Additional Instructions: increase oral fluids prednisone 40 mg daily for 5 days zithromax 500 mg daily for 5 days follow up as needed - My Orders Last 24 Hours: My Active Orders 12/06/18 07:21 Oxygen Therapy Adult [Oxygen Therapy, ED] [RC] ASDIRECTED 12/06/18 07:40 CULTURE BLOOD [BC] Urgent 12/06/18 07:45 CULTURE BLOOD [BC] Urgent 12/06/18 09:32 RT Aerosol Therapy [RC] ASDIRECTED 12/06/18 09:59 Peripheral IV Insertion Adult [OM.PC] Routine - Assessment/Plan Last 24 Hours: My Active Orders 12/06/18 07:21 Oxygen Therapy Adult [Oxygen Therapy, ED] [RC] ASDIRECTED 12/06/18 07:40 CULTURE BLOOD [BC] Urgent 12/06/18 07:45 CULTURE BLOOD [BC] Urgent 12/06/18 09:32 RT Aerosol Therapy [RC] ASDIRECTED 12/06/18 09:59 Peripheral IV Insertion Adult [OM.PC] Routine
== END 2018-12-06 11:28 ==
LOC: FB.ED 07:21
DX: J44.1 Chronic obstructive pulmonary disease with (acute) exacerbation (principal); E87.5 Hyperkalemia; I10 Essential (primary) hypertension; J44.9 Chronic obstructive pulmonary disease, unspecified; K21.9 Gastro-esophageal reflux disease without esophagitis; G30.9 Alzheimer's disease, unspecified; F02.80 Dementia in other diseases classified elsewhere, unspecified severity, without behavioral disturbance, psychotic disturbance, mood disturbance, and anxiety; F41.9 Anxiety disorder, unspecified; F32.9 Major depressive disorder, single episode, unspecified; E03.9 Hypothyroidism, unspecified; E66.9 Obesity, unspecified; Z68.38 Body mass index [BMI] 38.0-38.9, adult; Z88.8 Allergy status to other drugs, medicaments and biological substances; Z79.82 Long term (current) use of aspirin; Z79.899 Other long term (current) drug therapy; Z79.890 Hormone replacement therapy
CPT/HCPCS: 36415; 71045; 80053; 81001; 83605; 83880; 84484; 85025; 87040; 87804; 94640; 96374; 99284; J2930; J7620-GY

== ENCOUNTER 2019-02-10 21:30 | Inpatient (IN) | payer MEDICARE ==
[2019-02-10] MEDS ORDERED: Ketorolac 30 MG/ML SDV IVPUSH ONE (23:26)
[2019-02-10] MEDS: Sodium Chloride 0.9% 10 ML Syringe FLUSH PRN (23:30)
--- NOTE | 2019-02-11 00:28 | EDM.PDOC ---
ED HPI GENERAL MEDICAL PROBLEM - General Chief Complaint: Fever Stated Complaint: Fever Time Seen by Provider: 02/10/19 23:00 Source of Information: Reports: [facility] Records History Limitations: Reports: Altered Mental Status - History of Present Illness INITIAL COMMENTS - FREE TEXT/NARRATIVE: Patient presented to the ED from the [facility] because of 1 day history of fever, cough and altered mental status. He was febrile at [facility] with a temp of 101.6 'F and hypoxemic as well with oxygen saturation of 82-89% on RA. Per staff, his cough is non productive. - Related Data Allergies Allergy/AdvReac Type Severity Reaction Status Date / Time acetaminophen Allergy Abdominal Verified 12/06/18 08:25 [From Darvocet-N] Pain hydrocodone Allergy Abdominal Verified 12/06/18 08:25 Pain oxycodone Allergy Abdominal Verified 12/06/18 08:25 Pain propoxyphene Allergy Abdominal Verified 12/06/18 08:25 [From Darvocet-N] Pain valdecoxib [From Bextra] Allergy Abdominal Verified 12/06/18 08:25 Pain Home Meds: Home Meds Albuterol [IJD: Ventolin HFA] 2 puff INH Q4HR PRN 11/19/16 [History] Donepezil HCl [Aricept] 10 mg PO BEDTIME 11/19/16 [History] Furosemide [Lasix] 20 mg PO DAILY 11/19/16 [History] Ketotifen [Ketotifen 0.025% Ophth Soln] 1 drop EYEBOTH BID 11/19/16 [History] Loperamide [Imodium] 2 mg PO ASDIRECTED PRN MDD 4 11/19/16 [History] Omeprazole 20 mg PO DAILY 11/19/16 [History] PHENobarbitaL [Phenobarbital] 97.2 mg PO BID 11/19/16 [History] Potassium Chloride [Klor-Con 10] 20 meq PO DAILY 11/19/16 [History] Memantine HCl 10 mg PO BID 10/12/17 [History] Tamsulosin [Flomax] 0.4 mg PO 1200 10/12/17 [History] risperiDONE 0.5 mg PO 08 10/12/17 [History] traMADol [Ultram] 25 mg PO Q6H PRN 10/12/17 [History] Albuterol/Ipratropium [DuoNeb 3.0-0.5 MG/3 ML] 1 vial INH Q6H PRN 09/17/18 [ History] Aspirin [Adult Low Dose Aspirin EC] 81 mg PO DAILY 09/17/18 [History] Cholecalciferol (Vitamin D3) [Vitamin D3] 1,000 unit PO DAILY 09/17/18 [History] Citalopram Hydrobromide [Celexa] 20 mg PO DAILY 09/17/18 [History] [place] Starch 1 applic TOP ASDIRECTED PRN 09/17/18 [History] Docusate Sodium [Colace] 100 mg PO DAILY 09/17/18 [History] Eucalyptus/Menthol [Cough Drops] 1 evan PO ASDIRECTED PRN 09/17/18 [History] Gabapentin [Neurontin] 100 mg PO TID 09/17/18 [History] Levothyroxine [Synthroid] 100 mcg PO DAILY 09/17/18 [History] Magnesium Hydroxide [Milk of Magnesia] 30 ml PO DAILY PRN 09/17/18 [History] Multivitamin [Multivitamins] 1 cap PO DAILY 09/17/18 [History] Polyethylene Glycol 3350 [MiraLAX] 17 gm PO DAILY 09/17/18 [History] Rosuvastatin [Crestor] 10 mg PO DAILY 09/17/18 [History] bisacodyL [Dulcolax] 10 mg RC Q72H PRN 09/17/18 [History] guaiFENesin 10 ml PO Q4H PRN 09/17/18 [History] risperiDONE 0.25 mg PO 12 09/17/18 [History] risperiDONE 1.5 mg PO BEDTIME 09/17/18 [History] traMADol [Ultram] 25 mg PO BID 09/17/18 [History] Amoxicillin/Potassium Clav [Amox Tr-K Clv 875-125 mg Tab] 1 each PO Q12HR 7 Days #14 tablet 09/19/18 [Rx] Saccharomyces Boulardii [Florastor] 250 mg PO BID 7 Days #14 cap 09/19/18 [Rx] Azithromycin [Zithromax] 500 mg PO DAILY #5 tab 12/06/18 [Rx] predniSONE [Prednisone] 40 mg PO DAILY #10 tablet 12/06/18 [Rx] Past Medical History HEENT History: Reports: Hard of Hearing, Impaired Vision, Other (See Below) Other HEENT History: conjunctivitis Cardiovascular History: Reports: High Cholesterol, Hypertension Other Cardiovascular History: peripheral edema Respiratory History: Reports: COPD, Pneumonia, Recurrent, Other (See Below) Other Respiratory History: asp pneumonia Gastrointestinal History: Reports: Chronic Constipation, GERD, GI Bleed Other Gastrointestinal History: fatty liver Genitourinary History: Reports: BPH, Urinary Incontinence Musculoskeletal History: Reports: Fracture, Other (See Below) Other Musculoskeletal History: uses a full body lift,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, must wear back brace at all times Neurological History: Reports: Alzheimers Disease, Seizure Psychiatric History: Reports: Anxiety, Dementia, Depression, Other (See Below) Other Psychiatric History: delusional disorders Endocrine/Metabolic History: Reports: Hypothyroidism, Obesity/BMI 30+ Oncologic (Cancer) History: Reports: Prostate - Infectious Disease History Infectious Disease History: Reports: Chicken Pox - Past Surgical History Cardiovascular Surgical History: Reports: None Respiratory Surgical History: Reports: None Neurological Surgical History: Reports: None Oncologic Surgical History: Reports: None Social & Family History - Family History Family Medical History: Unobtainable - Caffeine Use Caffeine Use: Reports: Coffee - Living Situation & Occupation Living situation: Reports: Extended Care Facility (Lives in [facility]) Occupation: Retired ED ROS GENERAL - Review of Systems Review Of Systems: See Below Constitutional: Reports: Fever. Denies: Chills HEENT: Reports: No Symptoms Respiratory: Reports: Cough. Denies: Sputum Cardiovascular: Reports: No Symptoms Endocrine: Reports: No Symptoms GI/Abdominal: Reports: No Symptoms : Reports: No Symptoms Musculoskeletal: Reports: No Symptoms Skin: Reports: No Symptoms Neurological: Reports: Other (lethargy) Psychiatric: Reports: No Symptoms Hematologic/Lymphatic: Reports: No Symptoms Immunologic: Reports: No Symptoms ED EXAM, GENERAL - Physical Exam Exam: See Below Exam Limited By: Altered Mental Status General Appearance: No Apparent Distress Eye Exam: Bilateral Eye: PERRL Ears: Normal External Exam Nose: Normal Inspection, Normal Mucosa Throat/Mouth: Normal Inspection, Normal Lips, Normal Teeth Head: Atraumatic, Normocephalic Neck: Normal Inspection, Supple, Non-Tender Respiratory/Chest: Chest Non-Tender, Rhonchi, Wheezing, Stridor Cardiovascular: Normal Peripheral Pulses, Regular Rate, Rhythm, No JVD GI/Abdominal: Normal Bowel Sounds, Soft, Non-Tender Back Exam: Normal Inspection, Full Range of Motion Extremities: Normal Inspection, Normal Range of Motion Skin Exam: Warm Course - Vital Signs Text/Narrative:: labs/CXR reviewed with NH staff [id number] CXR hard to read Patient clinically has pneumonia causing COPD exacerbation. He will be admitted to observation and start him on IV Levaquin - Orders/Labs/Meds Orders: Active Orders 24 hr Category Date Time Status Chest 1V Frontal [CR] Stat Exams 02/10/19 21:41 Taken CULTURE BLOOD [BC] Urgent Lab 02/10/19 21:58 Received CULTURE BLOOD [BC] Urgent Lab 02/10/19 22:05 Received Sodium Chloride 0.9% [Saline Flush] Med 02/10/19 21:41 Active 10 ml FLUSH ASDIRECTED PRN Blood Culture x2 Reflex Set [OM.PC] Urgent Oth 02/10/19 21:41 Ordered Saline Lock Insert [OM.PC] Routine Oth 02/10/19 21:41 Ordered Medication Orders Sodium Chloride (Saline Flush) 10 ml FLUSH ASDIRECTED PRN PRN Reason: Keep Vein Open Labs: Laboratory Tests 02/10/19 02/10/19 02/10/19 Range/Units 21:58 21:58 21:58 WBC 14.5 H (4.5-12.0) X10-3/uL RBC 4.80 (4.30-5.75) x10(6)uL Hgb 14.0 (13.5-17.8) g/dL Hct 42.1 (30.0-51.3) % MCV 87.6 (80-96) fL MCH 29.2 (27.7-33.6) pg MCHC 33.4 (32.2-35.4) g/dL RDW 13.2 (11.5-15.5) % Plt Count 343 (125-369) X10(3)uL MPV 7.1 L (7.4-10.4) fL Add Manual Diff Yes Neutrophils % (Manual) 89 H (46-82) % Band Neutrophils % 5 (0-6) % Lymphocytes % (Manual) 2 L (13-37) % Monocytes % (Manual) 4 (4-12) % Sodium 142 (135-145) mmol/L Potassium 4.5 (3.5-5.3) mmol/L Chloride 101 (100-110) mmol/L Carbon Dioxide 30 (21-32) mmol/L BUN 16 (7-18) mg/dL Creatinine 0.9 (0.70-1.30) mg/dL Est Cr Clr Drug Dosing TNP Estimated GFR (MDRD) > 60 (>60) BUN/Creatinine Ratio 17.8 (9-20) Glucose 120 H (80-116) mg/dL Lactic Acid 1.7 (0.4-2.0) mmol/L Calcium 8.8 (8.6-10.2) mg/dL Total Bilirubin 0.4 (0.1-1.3) mg/dL AST 25 D (5-25) IU/L ALT 31 D (12-36) U/L Alkaline Phosphatase 139 H (56-112) IU/L Total Protein 8.3 H (6.0-8.0) g/dL Albumin 3.3 (3.2-4.6) g/dL Globulin 5.0 g/dL Albumin/Globulin Ratio 0.7 Urine Color (YELLOW) Urine Appearance (CLEAR) Urine pH (5.0-6.5) Ur Specific [place] (1.010-1.025) Urine Protein (NEGATIVE) mg/dL Urine Glucose (UA) (NORMAL) mg/dL Urine Ketones (NEGATIVE) mg/dL Urine Occult Blood (NEGATIVE) Urine Nitrite (NEGATIVE) Urine Bilirubin (NEGATIVE) Urine Urobilinogen (NEGATIVE) mg/dL Ur Leukocyte Esterase (NEGATIVE) Urine RBC (0-5) Urine WBC (0-5) Ur Squamous Epith Cells (NS,R,O) Urine Bacteria (NS) 02/10/19 Range/Units 23:10 WBC (4.5-12.0) X10-3/uL RBC (4.30-5.75) x10(6)uL Hgb (13.5-17.8) g/dL Hct (30.0-51.3) % MCV (80-96) fL MCH (27.7-33.6) pg MCHC (32.2-35.4) g/dL RDW (11.5-15.5) % Plt Count (125-369) X10(3)uL MPV (7.4-10.4) fL Add Manual Diff Neutrophils % (Manual) (46-82) % Band Neutrophils % (0-6) % Lymphocytes % (Manual) (13-37) % Monocytes % (Manual) (4-12) % Sodium (135-145) mmol/L Potassium (3.5-5.3) mmol/L Chloride (100-110) mmol/L Carbon Dioxide (21-32) mmol/L BUN (7-18) mg/dL Creatinine (0.70-1.30) mg/dL Est Cr Clr Drug Dosing Estimated GFR (MDRD) (>60) BUN/Creatinine Ratio (9-20) Glucose (80-116) mg/dL Lactic Acid (0.4-2.0) mmol/L Calcium (8.6-10.2) mg/dL Total Bilirubin (0.1-1.3) mg/dL AST (5-25) IU/L ALT (12-36) U/L Alkaline Phosphatase (56-112) IU/L Total Protein (6.0-8.0) g/dL Albumin (3.2-4.6) g/dL Globulin g/dL Albumin/Globulin Ratio Urine Color Yellow (YELLOW) Urine Appearance Slightly cloudy (CLEAR) Urine pH 7.0 H (5.0-6.5) Ur Specific [place] 1.020 (1.010-1.025) Urine Protein Negative (NEGATIVE) mg/dL Urine Glucose (UA) Normal (NORMAL) mg/dL Urine Ketones Negative (NEGATIVE) mg/dL Urine Occult Blood Moderate H (NEGATIVE) Urine Nitrite Negative (NEGATIVE) Urine Bilirubin Negative (NEGATIVE) Urine Urobilinogen 1 H (NEGATIVE) mg/dL Ur Leukocyte Esterase Negative (NEGATIVE) Urine RBC 5-10 H (0-5) Urine WBC 0-5 (0-5) Ur Squamous Epith Cells Occasional (NS,R,O) Urine Bacteria Few H (NS) Meds: Medications Generic Name Dose Route Start Last Admin Trade Name Freq PRN Reason Stop Dose Admin Sodium Chloride 10 ml 02/10/19 21:41 Saline Flush FLUSH ASDIRECTED PRN Keep Vein Open Discontinued Medications Generic Name Dose Route Start Last Admin Trade Name Freq PRN Reason Stop Dose Admin Ketorolac Tromethamine 15 mg 02/10/19 23:26 Toradol IVPUSH 02/10/19 23:27 ONETIME ONE Departure - Departure Time of Disposition: 00:35 Disposition: Refer to Observation Condition: Good Clinical Impression: COPD exacerbation Pneumonia Qualifiers: Pneumonia type: aspiration pneumonia Laterality: unspecified laterality Lung location: unspecified part of lung - Discharge Information Referrals: Ottoniel Diaz MD [Primary Care Provider] - Forms: ED Department Discharge Sepsis Event Note - Focused Exam Date Exam was Performed: 02/11/19 Time Exam was Performed: 00:35 - My Orders Last 24 Hours: My Active Orders 02/10/19 21:41 Chest 1V Frontal [CR] Stat Sodium Chloride 0.9% [Saline Flush] 10 ml FLUSH ASDIRECTED PRN Blood Culture x2 Reflex Set [OM.PC] Urgent Saline Lock Insert [OM.PC] Routine 02/10/19 21:58 CULTURE BLOOD [BC] Urgent 02/10/19 22:05 CULTURE BLOOD [BC] Urgent - Assessment/Plan Last 24 Hours: My Active Orders 02/10/19 21:41 Chest 1V Frontal [CR] Stat Sodium Chloride 0.9% [Saline Flush] 10 ml FLUSH ASDIRECTED PRN Blood Culture x2 Reflex Set [OM.PC] Urgent Saline Lock Insert [OM.PC] Routine 02/10/19 21:58 CULTURE BLOOD [BC] Urgent 02/10/19 22:05 CULTURE BLOOD [BC] Urgent
[2019-02-11] MEDS ORDERED: Ondansetron 4 MG/2 ML SDV IV PRN (00:39)
[2019-02-11] MEDS ORDERED: Acetaminophen 650 MG Supp RECTAL PRN (00:39)
[2019-02-11] MEDS ORDERED: Albuterol 0.083% 2.5 MG/3 ML Neb Soln NEB PRN (00:39)
[2019-02-11] MEDS ORDERED: Sodium Chloride 0.9% 1,000 ML IV SCH (00:45)
[2019-02-11] MEDS ORDERED: Enoxaparin 40 MG/0.4 ML Syringe SUBCUT SCH (01:00)
[2019-02-11] MEDS ORDERED: Levofloxacin/Dextrose 5%-Water 500 MG in Premix Bag 1 BAG IV ONE (01:30)
[2019-02-11] MEDS: IPRATROPIUM NEB SCH ×4 (06:50→21:04)
[2019-02-11] MEDS: ALBUTEROL NEB SCH ×4 (06:50→21:04)
[2019-02-11] MEDS ORDERED: Magnesium Hydroxide 400 MG/5 ML Susp 30 ML Cup PO PRN (09:13)
[2019-02-11] MEDS ORDERED: CORN STARCH TOP PRN (09:13)
[2019-02-11] MEDS ORDERED: guaiFENesin 100 MG/5 ML Soln 5 ML UD Cup PO PRN (09:13)
[2019-02-11] MEDS ORDERED: traMADol 50 MG Tab PO PRN (09:13)
[2019-02-11] MEDS ORDERED: EUCALYPTUS PO PRN (09:13)
[2019-02-11] MEDS ORDERED: MENTHOL PO PRN (09:13)
[2019-02-11] MEDS: Sodium Chloride 0.9% 1,000 ML IV SCH (09:15)
[2019-02-11] MEDS ORDERED: Omeprazole 20 MG CAP *PTOM PO SCH (09:30)
--- NOTE | 2019-02-11 09:30 | PCM.HP.2 ---
H&P History of Present Illness - General Date of Service: 02/11/19 Admit Problem/Dx: Admission Diagnosis/Problem Admission Diagnosis/Problem Pneumonia Source of Information: Patient History Limitations: Reports: No Limitations - History of Present Illness Initial Comments - Free Text/Narative: Emir is a 78-year-old male from the retirement who came in with a one-day history of cough, fever( up to 101.5), alteration of mentation and hypoxemia. He has significant dementia and its challenge to obtain history and a proper physical exam. At the emergency room he was found to have an infiltrate in the left lung consistent with pneumonia. Is admitted for IV antibiotics. He has a history of CHF, COPD ,hypothyroidism, Alzheimer's dementia, and compression fractures the lumbar sacral spine - Related Data Allergies/Adverse Reactions: Allergies Allergy/AdvReac Type Severity Reaction Status Date / Time celecoxib [From Celebrex] Allergy Other Verified 02/11/19 08:44 hydrocodone Allergy Abdominal Verified 02/11/19 08:44 Pain oxycodone Allergy Abdominal Verified 02/11/19 08:44 Pain propoxyphene Allergy Abdominal Verified 02/11/19 08:44 [From Darvocet-N] Pain valdecoxib [From Bextra] Allergy Abdominal Verified 02/11/19 08:44 Pain Home Medications: Home Meds Albuterol [IJD: Ventolin HFA] 2 puff INH Q4HR PRN 11/19/16 [History] Donepezil HCl [Aricept] 10 mg PO BEDTIME 11/19/16 [History] Loperamide [Imodium] 2 mg PO ASDIRECTED PRN MDD 4 11/19/16 [History] Omeprazole 20 mg PO DAILY 11/19/16 [History] PHENobarbitaL [Phenobarbital] 97.2 mg PO BID 11/19/16 [History] Potassium Chloride [Klor-Con 10] 20 meq PO DAILY 11/19/16 [History] Memantine HCl 10 mg PO BID 10/12/17 [History] Tamsulosin [Flomax] 0.4 mg PO BEDTIME 10/12/17 [History] risperiDONE 0.5 mg PO 08 10/12/17 [History] traMADol [Ultram] 25 mg PO Q6H PRN 10/12/17 [History] Albuterol/Ipratropium [DuoNeb 3.0-0.5 MG/3 ML] 1 vial INH Q6H PRN 09/17/18 [ History] Aspirin [Adult Low Dose Aspirin EC] 81 mg PO DAILY 09/17/18 [History] Cholecalciferol (Vitamin D3) [Vitamin D3] 1,000 unit PO DAILY 09/17/18 [History] Citalopram Hydrobromide [Celexa] 20 mg PO DAILY 09/17/18 [History] Sapello Starch 1 applic TOP ASDIRECTED PRN 09/17/18 [History] Docusate Sodium [Colace] 100 mg PO DAILY 09/17/18 [History] Gabapentin [Neurontin] 100 mg PO TID 09/17/18 [History] Levothyroxine [Synthroid] 100 mcg PO SUTUTH 09/17/18 [History] Magnesium Hydroxide [Milk of Magnesia] 30 ml PO DAILY PRN 09/17/18 [History] Multivitamin [Multivitamins] 1 cap PO DAILY 09/17/18 [History] Rosuvastatin [Crestor] 10 mg PO BEDTIME 09/17/18 [History] bisacodyL [Dulcolax] 10 mg RC Q3D PRN 09/17/18 [History] guaiFENesin 10 ml PO Q4H PRN 09/17/18 [History] risperiDONE 1 mg PO 12 09/17/18 [History] traMADol [Ultram] 25 mg PO BID 09/17/18 [History] .Saline Solution 0.9% 1 vial INH DAILY 02/11/19 [History] Albuterol/Ipratropium [DuoNeb 3.0-0.5 MG/3 ML] 3 ml INH TID 02/11/19 [History] Ceramides 1,3,6-11 [Cerave] 1 applic TOP BID 02/11/19 [History] Eucalyptus/Menthol [Cough Drops] 1 each PO ASDIRECTED PRN 02/11/19 [History] Furosemide [Lasix] 20 mg PO DAILY 02/11/19 [History] Ketotifen [Ketotifen 0.025% Ophth Soln] 1 drop EYEBOTH BID 02/11/19 [History] Levothyroxine Sodium [Synthroid] 150 mcg PO MOWEFRSA 02/11/19 [History] Polyethylene Glycol 3350 [MiraLAX] 17 gm PO DAILY 02/11/19 [History] guaiFENesin [Mucinex] 600 mg PO DAILY 02/11/19 [History] guaiFENesin [Mucinex] 600 mg PO DAILY PRN 02/11/19 [History] risperiDONE [Risperdal] 1.5 mg PO 18 02/11/19 [History] Past Medical History HEENT History: Reports: Hard of Hearing, Impaired Vision, Other (See Below) Other HEENT History: conjunctivitis Cardiovascular History: Reports: High Cholesterol, Hypertension Other Cardiovascular History: peripheral edema Respiratory History: Reports: COPD, Pneumonia, Recurrent, Other (See Below) Other Respiratory History: asp pneumonia Gastrointestinal History: Reports: Chronic Constipation, GERD, GI Bleed Other Gastrointestinal History: fatty liver Genitourinary History: Reports: BPH, Urinary Incontinence Musculoskeletal History: Reports: Fracture, Other (See Below) Other Musculoskeletal History: uses a full body lift,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, must wear back brace at all times Neurological History: Reports: Alzheimers Disease, Seizure Psychiatric History: Reports: Anxiety, Dementia, Depression, Other (See Below) Other Psychiatric History: delusional disorders Endocrine/Metabolic History: Reports: Hypothyroidism, Obesity/BMI 30+ Oncologic (Cancer) History: Reports: Prostate - Infectious Disease History Infectious Disease History: Reports: Chicken Pox - Past Surgical History Cardiovascular Surgical History: Reports: None Respiratory Surgical History: Reports: None Neurological Surgical History: Reports: None Oncologic Surgical History: Reports: None Social & Family History - Family History Family Medical History: Unobtainable - Caffeine Use Caffeine Use: Reports: Coffee - Living Situation & Occupation Living situation: Reports: Extended Care Facility (Lives in [facility]) Occupation: Retired H&P Review of Systems - Review of Systems: Review Of Systems: Unable To Obtain (Dementia) Reason Not Obtained: Dementia Exam - Exam Exam: See Below - Vital Signs Vital Signs: Last Vital Signs Temp 97.6 F 02/11/19 07:55 Pulse 68 02/11/19 07:55 Resp 26 H 02/11/19 07:55 BP 96/60 02/11/19 07:55 Pulse Ox 95 02/11/19 07:55 Weight: 107.501 kg - Exam Quality Assessment: Supplemental Oxygen General: Mild Distress, Lethargic HEENT: PERRLA Lungs: Crackles Cardiovascular: Regular Rate Extremities: Pedal Edema Skin: Warm - Patient Data Lab Results Last 24 hrs: Laboratory Results - last 24 hr 02/10/19 02/10/19 02/10/19 Range/Units 21:58 21:58 21:58 WBC 14.5 H (4.5-12.0) X10-3/uL RBC 4.80 (4.30-5.75) x10(6)uL Hgb 14.0 (13.5-17.8) g/dL Hct 42.1 (30.0-51.3) % MCV 87.6 (80-96) fL MCH 29.2 (27.7-33.6) pg MCHC 33.4 (32.2-35.4) g/dL RDW 13.2 (11.5-15.5) % Plt Count 343 (125-369) X10(3)uL MPV 7.1 L (7.4-10.4) fL Add Manual Diff Yes Neutrophils % (Manual) 89 H (46-82) % Band Neutrophils % 5 (0-6) % Lymphocytes % (Manual) 2 L (13-37) % Monocytes % (Manual) 4 (4-12) % Sodium 142 (135-145) mmol/L Potassium 4.5 (3.5-5.3) mmol/L Chloride 101 (100-110) mmol/L Carbon Dioxide 30 (21-32) mmol/L BUN 16 (7-18) mg/dL Creatinine 0.9 (0.70-1.30) mg/dL Est Cr Clr Drug Dosing TNP Estimated GFR (MDRD) > 60 (>60) BUN/Creatinine Ratio 17.8 (9-20) Glucose 120 H (80-116) mg/dL Lactic Acid 1.7 (0.4-2.0) mmol/L Calcium 8.8 (8.6-10.2) mg/dL Total Bilirubin 0.4 (0.1-1.3) mg/dL AST 25 D (5-25) IU/L ALT 31 D (12-36) U/L Alkaline Phosphatase 139 H (56-112) IU/L Total Protein 8.3 H (6.0-8.0) g/dL Albumin 3.3 (3.2-4.6) g/dL Globulin 5.0 g/dL Albumin/Globulin Ratio 0.7 Urine Color (YELLOW) Urine Appearance (CLEAR) Urine pH (5.0-6.5) Ur Specific [place] (1.010-1.025) Urine Protein (NEGATIVE) mg/dL Urine Glucose (UA) (NORMAL) mg/dL Urine Ketones (NEGATIVE) mg/dL Urine Occult Blood (NEGATIVE) Urine Nitrite (NEGATIVE) Urine Bilirubin (NEGATIVE) Urine Urobilinogen (NEGATIVE) mg/dL Ur Leukocyte Esterase (NEGATIVE) Urine RBC (0-5) Urine WBC (0-5) Ur Squamous Epith Cells (NS,R,O) Urine Bacteria (NS) 02/10/19 02/11/19 02/11/19 Range/Units 23:10 06:45 06:45 WBC 17.1 H (4.5-12.0) X10-3/uL RBC 3.84 L (4.30-5.75) x10(6)uL Hgb 11.5 L (13.5-17.8) g/dL Hct 34.0 (30.0-51.3) % MCV 88.7 (80-96) fL MCH 30.0 (27.7-33.6) pg MCHC 33.9 (32.2-35.4) g/dL RDW 13.3 (11.5-15.5) % Plt Count 303 (125-369) X10(3)uL MPV 7.1 L (7.4-10.4) fL Add Manual Diff Yes Neutrophils % (Manual) 90 H (46-82) % Band Neutrophils % 4 (0-6) % Lymphocytes % (Manual) 3 L (13-37) % Monocytes % (Manual) 3 L (4-12) % Sodium 142 (135-145) mmol/L Potassium 4.6 (3.5-5.3) mmol/L Chloride 104 (100-110) mmol/L Carbon Dioxide 31 (21-32) mmol/L BUN 21 H (7-18) mg/dL Creatinine 0.8 (0.70-1.30) mg/dL Est Cr Clr Drug Dosing 73.63 Estimated GFR (MDRD) > 60 (>60) BUN/Creatinine Ratio 26.3 H (9-20) Glucose 117 H (80-116) mg/dL Lactic Acid (0.4-2.0) mmol/L Calcium 8.5 L (8.6-10.2) mg/dL Total Bilirubin (0.1-1.3) mg/dL AST (5-25) IU/L ALT (12-36) U/L Alkaline Phosphatase (56-112) IU/L Total Protein (6.0-8.0) g/dL Albumin (3.2-4.6) g/dL Globulin g/dL Albumin/Globulin Ratio Urine Color Yellow (YELLOW) Urine Appearance Slightly cloudy (CLEAR) Urine pH 7.0 H (5.0-6.5) Ur Specific [place] 1.020 (1.010-1.025) Urine Protein Negative (NEGATIVE) mg/dL Urine Glucose (UA) Normal (NORMAL) mg/dL Urine Ketones Negative (NEGATIVE) mg/dL Urine Occult Blood Moderate H (NEGATIVE) Urine Nitrite Negative (NEGATIVE) Urine Bilirubin Negative (NEGATIVE) Urine Urobilinogen 1 H (NEGATIVE) mg/dL Ur Leukocyte Esterase Negative (NEGATIVE) Urine RBC 5-10 H (0-5) Urine WBC 0-5 (0-5) Ur Squamous Epith Cells Occasional (NS,R,O) Urine Bacteria Few H (NS) Result Diagrams: 02/11/19 06:45 02/11/19 06:45 Siddhartha Results Last 24 hrs: Microbiology 02/10/19 22:01 Influenza Type A Antigen Screen - Final Nasopharyngeal Swab NEGATIVE INFLUENZA A VIRUS AG REFERENCE RANGE: NEGATIVE Influenza Type B Antigen Screen - Final NEGATIVE INFLUENZA B VIRUS AG REFERENCE RANGE: NEGATIVE Sepsis Event Note - Evaluation Sepsis Screening Result: Sepsis Risk - Focused Exam Vital Signs: Vital Signs Temp Temp Pulse Pulse Resp BP BP 02/11/19 07:55 97.6 F 68 26 H 96/60 02/11/19 06:50 76 02/11/19 05:00 99.1 F 82 18 104/52 L 02/11/19 02:55 99.4 F 84 18 98/58 L 02/11/19 01:10 99.6 F 86 18 101/58 L Pulse Ox 02/11/19 07:55 95 02/11/19 06:50 02/11/19 05:00 94 L 02/11/19 02:55 93 L 02/11/19 01:10 93 L Date Exam was Performed: 02/11/19 Time Exam was Performed: 09:46 - Problem List (1) Pneumonia SNOMED Code(s): 340498442 ICD Code: J18.9 - PNEUMONIA, UNSPECIFIED ORGANISM Status: Acute Current Visit: Yes Qualifiers: Pneumonia type: aspiration pneumonia Laterality: unspecified laterality Lung location: unspecified part of lung (2) HTN (hypertension) SNOMED Code(s): 82580500 ICD Code: I10 - ESSENTIAL (PRIMARY) HYPERTENSION Status: Acute Current Visit: Yes Qualifiers: Hypertension type: essential hypertension Qualified Code(s): I10 - Essential (primary) hypertension (3) GERD (gastroesophageal reflux disease) SNOMED Code(s): 971831524 ICD Code: K21.9 - GASTRO-ESOPHAGEAL REFLUX DISEASE WITHOUT ESOPHAGITIS Status: Acute Current Visit: Yes Qualifiers: Esophagitis presence: esophagitis presence not specified Qualified Code(s) : K21.9 - Gastro-esophageal reflux disease without esophagitis (4) Palliative care encounter SNOMED Code(s): 571824244 ICD Code: Z51.5 - ENCOUNTER FOR PALLIATIVE CARE Status: Acute Current Visit: Yes (5) Dementia SNOMED Code(s): 25634342 ICD Code: F03.90 - UNSPECIFIED DEMENTIA WITHOUT BEHAVIORAL DISTURBANCE Status: Acute Current Visit: No Problem Details: Qualifiers: Dementia type: Alzheimer's disease (6) GERD (gastroesophageal reflux disease) SNOMED Code(s): 344782116 ICD Code: K21.9 - GASTRO-ESOPHAGEAL REFLUX DISEASE WITHOUT ESOPHAGITIS Status: Acute Current Visit: No Problem Details: Patient on IV PPI currently. (7) COPD exacerbation SNOMED Code(s): 716580191 ICD Code: J44.1 - CHRONIC OBSTRUCTIVE PULMONARY DISEASE W (ACUTE) EXACERBATION Status: Acute Current Visit: Yes Problem List Initiated/Reviewed/Updated: Yes Orders Last 24hrs: Active Orders 24 hr Category Date Time Status Patient Status [ADT] Routine ADT 02/11/19 00:39 Active Bedrest Bedside Commode [RC] ASDIRECTED Care 02/11/19 00:39 Active Intake and Output [RC] QSHIFT Care 02/11/19 00:42 Inactive Oxygen Therapy [RC] PRN Care 02/11/19 00:39 Active Pulse Oximetry [RC] CONTINUOUS Care 02/11/19 00:42 Active RT Aerosol Therapy [RC] ASDIRECTED Care 02/11/19 00:49 Active VTE/DVT Education [RC] Per Unit Routine Care 02/11/19 00:39 Active Vital Signs [RC] Q4H Care 02/11/19 00:39 Active Mechanical Soft Diet [DIET] Diet 02/11/19 Breakfast Ordered Thickened Liquids [DIET] Diet 02/11/19 Lunch Active Chest 1V Frontal [CR] Stat Exams 02/10/19 21:41 Taken BASIC METABOLIC PANEL,BMP [CHEM] AM Lab 02/12/19 05:11 Ordered CBC WITH AUTO DIFF [HEME] AM Lab 02/12/19 05:11 Ordered CULTURE BLOOD [BC] Urgent Lab 02/10/19 21:58 Received CULTURE BLOOD [BC] Urgent Lab 02/10/19 22:05 Received PRO B-TYPE NATRIUR PEPT,BNPPRO [CHEM] Urgent Lab 02/11/19 09:13 Ordered .Saline Solution 0.9% Med 02/12/19 09:00 Ordered 1 vial INH DAILY Acetaminophen [Tylenol] Med 02/11/19 00:39 Active 650 mg RECTAL Q4H PRN Albuterol [Proventil Neb Soln] Med 02/11/19 00:39 Active 2.5 mg NEB Q2H PRN Albuterol/Ipratropium [DuoNeb 3.0-0.5 MG/3 ML] Med 02/11/19 07:00 Active 3 ml NEB QIDRT Ceramides 1,3,6-11 Med 02/11/19 21:00 Ordered 1 applic TOP BID Cholecalciferol (Vitamin D3) [Vitamin D3] Med 02/12/19 09:00 Ordered 1,000 unit PO DAILY Citalopram Hydrobromide [Celexa] Med 02/12/19 09:00 Ordered 20 mg PO DAILY Sapello Starch [Sapello Starch] Med 02/11/19 09:13 Ordered 1 applic TOP ASDIRECTED PRN Docusate Sodium [Colace] Med 02/12/19 09:00 Ordered 100 mg PO DAILY Donepezil [Aricept] Med 02/11/19 21:00 Ordered 10 mg PO BEDTIME Enoxaparin [Lovenox] Med 02/11/19 22:00 Active 40 mg SUBCUT Q24H Eucalyptus/Menthol [Cough Drops] Med 02/11/19 09:13 Ordered 1 each PO ASDIRECTED PRN Ketotifen [Ketotifen 0.025% Ophth Soln] Med 02/11/19 21:00 Ordered 1 drop EYEBOTH BID Levofloxacin/Dextrose 5%-Water [Levaquin in D5W 500 MG/ Med 02/11/19 21:00 Active 100 ML] 500 mg Premix Bag 1 bag IV Q24H Magnesium Hydroxide [Milk of Magnesia] Med 02/11/19 09:13 Ordered 30 ml PO DAILY PRN Memantine [Namenda] Med 02/11/19 21:00 Ordered 10 mg PO BID Multivitamin [Multivitamins] Med 02/12/19 09:00 Ordered 1 cap PO DAILY Omeprazole [Omeprazole] Med 02/12/19 09:00 Ordered 20 mg PO DAILY Ondansetron [Zofran] Med 02/11/19 00:39 Active 4 mg IV Q4H PRN PHENobarbitaL [Phenobarbital] Med 02/11/19 21:00 Ordered 97.2 mg PO BID Sodium Chloride 0.9% @ 50 MLS/HR(1000ml) Med 02/11/19 09:15 Ordered Sodium Chloride 0.9% [Normal Saline] 1,000 ml IV ASDIRECTED Sodium Chloride 0.9% [Saline Flush] Med 02/10/19 21:41 Active 10 ml FLUSH ASDIRECTED PRN Tamsulosin [Flomax] Med 02/11/19 21:00 Ordered 0.4 mg PO BEDTIME guaiFENesin [Robitussin] Med 02/11/19 09:13 Ordered 200 mg PO Q4H PRN risperiDONE [RisperiDAL] Med 02/12/19 08:00 Ordered 0.5 mg PO 08 risperiDONE [RisperiDAL] Med 02/11/19 12:00 Ordered 1 mg PO 12 risperiDONE [RisperiDAL] Med 02/11/19 18:00 Ordered 1.5 mg PO 18 traMADol [Ultram] Med 02/11/19 21:00 Ordered 25 mg PO BID traMADol [Ultram] Med 02/11/19 09:13 Ordered 25 mg PO Q6H PRN Antiembolic Hose [OM.PC] Per Unit Routine Oth 02/11/19 00:43 Ordered Blood Culture x2 Reflex Set [OM.PC] Urgent Oth 02/10/19 21:41 Ordered Saline Lock Insert [OM.PC] Routine Oth 02/10/19 21:41 Ordered Resuscitation Status Routine Resus Stat 02/11/19 00:39 Ordered Medication Orders Acetaminophen (Tylenol) 650 mg RECTAL Q4H PRN PRN Reason: Mild pain/fever Last Admin: 02/11/19 01:33 Dose: 650 mg Albuterol (Proventil Neb Soln) 2.5 mg NEB Q2H PRN PRN Reason: Shortness Of Breath/wheezing Albuterol/Ipratropium (Duoneb 3.0-0.5 Mg/3 Ml) 3 ml NEB QIDRT AYAZ Last Admin: 02/11/19 06:50 Dose: 3 ml Docusate Sodium (Colace) 100 mg PO DAILY AYAZ Donepezil HCl (Aricept) 10 mg PO BEDTIME AYAZ Enoxaparin Sodium (Lovenox) 40 mg SUBCUT Q24H AYAZ Guaifenesin (Robitussin) 200 mg PO Q4H PRN PRN Reason: Cough Levofloxacin/Dextrose 500 mg/ (Premix) 100 mls @ 100 mls/hr IV Q24H AYAZ Sodium Chloride (Normal Saline) 1,000 mls @ 50 mls/hr IV ASDIRECTED AYAZ Last Admin: 02/11/19 09:15 Dose: 50 mls/hr Ketotifen Fumarate (Ketotifen 0.025% Ophth Soln) ml EYEBOTH BID AYAZ Magnesium Hydroxide (Milk Of Magnesia) 30 ml PO DAILY PRN PRN Reason: Constipation Memantine (Namenda) 10 mg PO BID AYAZ Non-Formulary Medication (.Saline Solution 0.9%) 1 vial INH DAILY AYAZ Non-Formulary Medication (Ceramides 1,3,6-11) 1 applic TOP BID AYAZ Non-Formulary Medication (Cholecalciferol (Vitamin D3) [Vitamin D3]) 1,000 unit PO DAILY AYAZ Non-Formulary Medication (Citalopram Hydrobromide [Celexa]) 20 mg PO DAILY AYAZ Non-Formulary Medication (Sapello Starch [Sapello Starch]) 1 applic TOP ASDIRECTED PRN PRN Reason: Rash Non-Formulary Medication (Eucalyptus/Menthol [Cough Drops]) 1 each PO ASDIRECTED PRN PRN Reason: Cough Non-Formulary Medication (Multivitamin [Multivitamins]) 1 cap PO DAILY AYAZ Non-Formulary Medication (Omeprazole [Omeprazole]) 20 mg PO DAILY AYAZ Non-Formulary Medication (Phenobarbital [Phenobarbital]) 97.2 mg PO BID AYAZ Ondansetron HCl (Zofran) 4 mg IV Q4H PRN PRN Reason: Nausea/Vomiting Risperidone (Risperidal) 1.5 mg PO 18 AYAZ Risperidone (Risperidal) 0.5 mg PO 08 AYAZ Risperidone (Risperidal) 1 mg PO 12 AYAZ Sodium Chloride (Saline Flush) 10 ml FLUSH ASDIRECTED PRN PRN Reason: Keep Vein Open Last Admin: 02/10/19 23:30 Dose: 10 ml Tamsulosin HCl (Flomax) 0.4 mg PO BEDTIME AYAZ Tramadol HCl (Ultram) 25 mg PO BID AYAZ Tramadol HCl (Ultram) 25 mg PO Q6H PRN PRN Reason: Pain Assessment/Plan Comment:: I will admit for IV antibiotics. IVF,judicious due to prior h/o CHF and current edema. Repeat Labs in Am. Updated sister in [place] - Mortality Measure Prognosis:: Poor
--- NOTE | 2019-02-11 10:23 | CR ---
INDICATION: Fever, rapid breathing. Couldn't hold breath. Wearing apparatus for spine. CHEST, 1 VIEW: AP portable upright view of the chest, 02/10/19, compared with 12/06/18 and 09/17/18, again reveal the heart to be normal in size and shape. There is an appearance of patchy infiltration and/or atelectasis at the left lower lobe. Findings may represent pneumonia, possibly with some atelectasis. No definite pleural effusion was seen. The right lung is relatively unremarkable with slightly heavy markings at the medial lung base. There is a calcification of the arch of the aorta. Demineralization is noted compatible with osteoporosis. Previous fracture with deformity is noted at the right humerus. IMPRESSION: 1. Parenchymal changes at the left lower lobe may represent fibrosis, atelectasis and possibly pneumonia - correlate clinically. 2. Probable COPD. 3. ASD aorta. 4. Osteoporosis. Report was called to the floor at [address] [facility]
[2019-02-11] MEDS: Docusate Sodium 100 MG Cap PO SCH (12:53)
[2019-02-11] MEDS: Pantoprazole 40 MG Tab.CR PO SCH (12:55)
[2019-02-11] MEDS: risperiDONE 1 MG Tab PO SCH (12:56)
[2019-02-11] MEDS: traMADol 50 MG Tab PO SCH ×2 (13:01→21:14)
[2019-02-11] MEDS ORDERED: RISPERIDONE 1 MG PO SCH (18:00)
[2019-02-11] MEDS: risperiDONE 0.5 MG Tab PO SCH (18:34)
[2019-02-11] MEDS: CERAMIDES TP SCH (21:06)
[2019-02-11] MEDS: Memantine 10 MG Tab PO SCH (21:08)
[2019-02-11] MEDS: Tamsulosin 0.4 MG Cap.ER PO SCH (21:09)
[2019-02-11] MEDS: Donepezil 10 MG Tab PO SCH (21:10)
[2019-02-11] MEDS: Ketotifen 0.025% Ophth Soln 5 ML Bottle EYEBOTH SCH (21:10)
[2019-02-11] MEDS: PHENobarbital 32.4 MG Tab PO SCH (21:17)
[2019-02-11] MEDS: Levofloxacin/Dextrose 5%-Water 500 MG in Premix Bag 1 BAG IV SCH (21:34)
[2019-02-11] MEDS: Enoxaparin 40 MG/0.4 ML Syringe SUBCUT SCH (21:38)
[2019-02-12] MEDS: IPRATROPIUM NEB SCH ×4 (06:30→20:01)
[2019-02-12] MEDS: Pantoprazole 40 MG Tab.CR PO SCH (06:30)
[2019-02-12] MEDS: Sodium Chloride 0.9% 1,000 ML IV SCH (06:30)
[2019-02-12] MEDS: ALBUTEROL NEB SCH ×4 (06:30→20:01)
[2019-02-12] MEDS ORDERED: RISPERIDONE 1 MG PO SCH (08:00)
--- NOTE | 2019-02-12 08:27 | PCM.PN ---
- General Info Date of Service: 02/12/19 Subjective Update: Emir has improved since yesterday.He is more awake,alert. No fever.Still needing O2 supplementation,however. Functional Status: Reports: Pain Controlled, Tolerating Diet - Review of Systems General: Denies: Fever HEENT: Reports: No Symptoms Pulmonary: Reports: Cough Cardiovascular: Reports: No Symptoms Gastrointestinal: Reports: No Symptoms - Patient Data Vitals - Most Recent: Last Vital Signs Temp 98.3 F 02/12/19 04:00 Pulse 102 H 02/12/19 06:30 Resp 18 02/12/19 04:00 BP 126/51 L 02/12/19 04:00 Pulse Ox 92 L 02/12/19 04:00 Weight - Most Recent: 107.501 kg I&O - Last 24 Hours: Intake & Output 02/11/19 02/12/19 02/12/19 22:59 06:59 14:59 Intake Total 442 Balance 442 Lab Results Last 24 Hours: Laboratory Results - last 24 hr 02/11/19 02/12/19 02/12/19 Range/Units 06:45 06:05 06:05 WBC 7.1 (4.5-12.0) X10-3/uL RBC 3.87 L (4.30-5.75) x10(6)uL Hgb 11.5 L (13.5-17.8) g/dL Hct 34.3 (30.0-51.3) % MCV 88.6 (80-96) fL MCH 29.7 (27.7-33.6) pg MCHC 33.5 (32.2-35.4) g/dL RDW 13.2 (11.5-15.5) % Plt Count 284 (125-369) X10(3)uL MPV 7.3 L (7.4-10.4) fL Add Manual Diff Yes Neutrophils % (Manual) 73 (46-82) % Lymphocytes % (Manual) 15 (13-37) % Monocytes % (Manual) 8 (4-12) % Eosinophils % (Manual) 4 (0-5) % Sodium 145 (135-145) mmol/L Potassium 3.9 (3.5-5.3) mmol/L Chloride 107 (100-110) mmol/L Carbon Dioxide 30 (21-32) mmol/L BUN 13 (7-18) mg/dL Creatinine 0.6 L (0.70-1.30) mg/dL Est Cr Clr Drug Dosing 98.17 mL/min Estimated GFR (MDRD) > 60 (>60) BUN/Creatinine Ratio 21.7 H (9-20) Glucose 86 (80-116) mg/dL Calcium 8.7 (8.6-10.2) mg/dL NT-Pro-B Natriuret Pep 647 H (<=450) pg/mL Siddhartha Results Last 24 Hours: Microbiology 02/10/19 21:58 Aerobic Blood Culture - Preliminary Blood - Venous NO GROWTH AFTER 1 DAY Anaerobic Blood Culture - Preliminary NO GROWTH AFTER 1 DAY 02/10/19 22:05 Aerobic Blood Culture - Preliminary Blood - Venous - Lab Draw NO GROWTH AFTER 1 DAY Anaerobic Blood Culture - Preliminary NO GROWTH AFTER 1 DAY Med Orders - Current: Current Medications Acetaminophen (Tylenol) 650 mg RECTAL Q4H PRN PRN Reason: Mild pain/fever Last Admin: 02/11/19 01:33 Dose: 650 mg Albuterol (Proventil Neb Soln) 2.5 mg NEB Q2H PRN PRN Reason: Shortness Of Breath/wheezing Albuterol/Ipratropium (Duoneb 3.0-0.5 Mg/3 Ml) 3 ml NEB QIDRT [facility] Last Admin: 02/12/19 06:30 Dose: 3 ml Cholecalciferol (Vitamin D3) 25 mcg PO DAILY [facility] Citalopram Hydrobromide (Celexa) 20 mg PO DAILY [facility] Docusate Sodium (Colace) 100 mg PO DAILY [facility] Last Admin: 02/11/19 12:53 Dose: 100 mg Donepezil HCl (Aricept) 10 mg PO BEDTIME [facility] Last Admin: 02/11/19 21:10 Dose: 10 mg Enoxaparin Sodium (Lovenox) 40 mg SUBCUT Q24H [facility] Last Admin: 02/11/19 21:38 Dose: 40 mg Guaifenesin (Robitussin) 200 mg PO Q4H PRN PRN Reason: Cough Levofloxacin/Dextrose 500 mg/ (Premix) 100 mls @ 100 mls/hr IV Q24H [facility] Last Admin: 02/11/19 21:34 Dose: 100 mls/hr Ketotifen Fumarate (Ketotifen 0.025% Ophth Soln) 0 ml EYEBOTH BID [facility] Last Admin: 02/11/19 21:10 Dose: 1 drop Magnesium Hydroxide (Milk Of Magnesia) 30 ml PO DAILY PRN PRN Reason: Constipation Memantine (Namenda) 10 mg PO BID [facility] Last Admin: 02/11/19 21:08 Dose: 10 mg Miscellaneous Medication (Cerave) 0 gm TP BID [facility] Last Admin: 02/11/19 21:06 Dose: 1 applic Multivitamins/Minerals (Thera M Plus) 1 tab PO DAILY [facility] Axtell Starch *Ptom 1 applic TOP ASDIRECTED PRN PRN Reason: Rash Non-Formulary Medication (Eucalyptus/Menthol [Cough Drops]) 1 each PO ASDIRECTED PRN PRN Reason: Cough Ondansetron HCl (Zofran) 4 mg IV Q4H PRN PRN Reason: Nausea/Vomiting Pantoprazole Sodium (Protonix) 40 mg PO 0600 [facility] Last Admin: 02/12/19 06:30 Dose: 40 mg Phenobarbital (Phenobarbital) 97.2 mg PO BID [facility] Last Admin: 02/11/19 21:17 Dose: 97.2 mg Risperidone (Risperidal) 1 mg PO 12 [facility] Last Admin: 02/11/19 12:56 Dose: 1 mg Risperidone (Risperidal) 1.5 mg PO 18 [facility] Last Admin: 02/11/19 18:34 Dose: 1.5 mg Risperidone (Risperidal) 0.5 mg PO 08 [facility] Sodium Chloride (Saline Flush) 10 ml FLUSH ASDIRECTED PRN PRN Reason: Keep Vein Open Last Admin: 02/10/19 23:30 Dose: 10 ml Sodium Chloride (Sodium Chloride 0.9%) 3 ml INH DAILY [facility] Tamsulosin HCl (Flomax) 0.4 mg PO BEDTIME [facility] Last Admin: 02/11/19 21:09 Dose: 0.4 mg Tramadol HCl (Ultram) 25 mg PO BID [facility] Last Admin: 02/11/19 21:14 Dose: 25 mg Tramadol HCl (Ultram) 25 mg PO Q6H PRN PRN Reason: Pain Discontinued Medications Enoxaparin Sodium (Lovenox) 40 mg SUBCUT Q24H [facility] Last Admin: 02/11/19 01:33 Dose: 40 mg Sodium Chloride (Normal Saline) 1,000 mls @ 125 mls/hr IV ASDIRECTED [facility] Last Admin: 02/11/19 00:55 Dose: 125 mls/hr Levofloxacin/Dextrose 500 mg/ (Premix) 100 mls @ 100 mls/hr IV ONETIME ONE Stop: 02/11/19 02:29 Last Admin: 02/11/19 01:25 Dose: 100 mls/hr Sodium Chloride (Normal Saline) 1,000 mls @ 50 mls/hr IV ASDIRECTED [facility] Last Admin: 02/12/19 06:30 Dose: 50 mls/hr Ketorolac Tromethamine (Toradol) 15 mg IVPUSH ONETIME ONE Stop: 02/10/19 23:27 Last Admin: 02/10/19 23:30 Dose: 15 mg Omeprazole 20 Mg Cap (*Ptom) 20 mg PO 0600 [facility] Last Admin: 02/11/19 13:04 Dose: Not Given Risperidone (Risperidal) 1.5 mg PO 18 [facility] Risperidone (Risperidal) 0.5 mg PO 08 [facility] - Exam Quality Assessment: Supplemental Oxygen General: Alert, Oriented, Cooperative HEENT: Pupils Equal Neck: Supple Lungs: Crackles Extremities: Pedal Edema Skin: Warm Psy/Mental Status: Normal Affect Sepsis Event Note - Evaluation Sepsis Screening Result: No Definite Risk - Focused Exam Vital Signs: Vital Signs Temp Pulse Pulse Resp BP Pulse Ox 02/12/19 06:30 102 H 02/12/19 04:00 98.3 F 76 18 126/51 L 92 L 02/11/19 21:05 86 Date Exam was Performed: 02/12/19 Time Exam was Performed: 08:25 - Problem List & Annotations (1) Pneumonia SNOMED Code(s): 659387837 Code(s): J18.9 - PNEUMONIA, UNSPECIFIED ORGANISM Status: Acute Current Visit: Yes Qualifiers: Pneumonia type: aspiration pneumonia Laterality: unspecified laterality Lung location: unspecified part of lung (2) HTN (hypertension) SNOMED Code(s): 59180937 Code(s): I10 - ESSENTIAL (PRIMARY) HYPERTENSION Status: Acute Current Visit: Yes Qualifiers: Hypertension type: essential hypertension Qualified Code(s): I10 - Essential (primary) hypertension (3) GERD (gastroesophageal reflux disease) SNOMED Code(s): 836019587 Code(s): K21.9 - GASTRO-ESOPHAGEAL REFLUX DISEASE WITHOUT ESOPHAGITIS Status: Acute Current Visit: Yes Qualifiers: Esophagitis presence: esophagitis presence not specified Qualified Code(s) : K21.9 - Gastro-esophageal reflux disease without esophagitis (4) Palliative care encounter SNOMED Code(s): 192528670 Code(s): Z51.5 - ENCOUNTER FOR PALLIATIVE CARE Status: Acute Current Visit: Yes (5) Dementia SNOMED Code(s): 09760219 Code(s): F03.90 - UNSPECIFIED DEMENTIA WITHOUT BEHAVIORAL DISTURBANCE Status: Acute Current Visit: No Qualifiers: Dementia type: Alzheimer's disease Annotation/Comment:: (6) GERD (gastroesophageal reflux disease) SNOMED Code(s): 783742388 Code(s): K21.9 - GASTRO-ESOPHAGEAL REFLUX DISEASE WITHOUT ESOPHAGITIS Status: Acute Current Visit: No Annotation/Comment:: Patient on IV PPI currently. (7) COPD exacerbation SNOMED Code(s): 855314569 Code(s): J44.1 - CHRONIC OBSTRUCTIVE PULMONARY DISEASE W (ACUTE) EXACERBATION Status: Acute Current Visit: Yes - Problem List Review Problem List Initiated/Reviewed/Updated: Yes - My Orders Last 24 Hours: My Active Orders 02/11/19 09:00 Docusate Sodium [Colace] 100 mg PO DAILY traMADol [Ultram] 25 mg PO BID 02/11/19 09:13 Axtell Starch [Axtell Starch] 1 applic TOP ASDIRECTED PRN Eucalyptus/Menthol [Cough Drops] 1 each PO ASDIRECTED PRN Magnesium Hydroxide [Milk of Magnesia] 30 ml PO DAILY PRN guaiFENesin [Robitussin] 200 mg PO Q4H PRN traMADol [Ultram] 25 mg PO Q6H PRN 02/11/19 09:57 Admission Status [Patient Status] [ADT] Routine 02/11/19 11:30 Pantoprazole [ProTONIX] 40 mg PO 0600 02/11/19 12:00 risperiDONE [RisperiDAL] 1 mg PO 12 02/11/19 18:00 risperiDONE [RisperiDAL] 1.5 mg PO 18 02/11/19 21:00 Ceramides 1,3,6-11 [Cerave] 0 gm TP BID Donepezil [Aricept] 10 mg PO BEDTIME Ketotifen [Ketotifen 0.025% Ophth Soln] 0 ml EYEBOTH BID Memantine [Namenda] 10 mg PO BID PHENobarbitaL 97.2 mg PO BID Tamsulosin [Flomax] 0.4 mg PO BEDTIME 02/12/19 08:00 risperiDONE [RisperiDAL] 0.5 mg PO 08 02/12/19 09:00 Cholecalciferol (Vitamin D3) [Vitamin D3] 25 mcg PO DAILY Citalopram [Celexa] 20 mg PO DAILY Multivitamins w-Iron/Ca/FA/Min [Thera M Plus] 1 tab PO DAILY Sodium Chloride 0.9% 3 ml INH DAILY - Plan Plan:: DC IV fluids. He looks better. Continue SVNs.Wean off O2. Possible DC in AM
[2019-02-12] MEDS: risperiDONE 0.5 MG Tab PO SCH ×2 (10:44→17:55)
[2019-02-12] MEDS: Memantine 10 MG Tab PO SCH ×2 (10:45→20:01)
[2019-02-12] MEDS: Cholecalciferol (Vitamin D3) 25 MCG Tab PO SCH (10:45)
[2019-02-12] MEDS: Docusate Sodium 100 MG Cap PO SCH (10:45)
[2019-02-12] MEDS: Multivitamins with Iron/Calcium/Folic Acid/Minerals Tab PO SCH (10:45)
[2019-02-12] MEDS: Citalopram 20 MG Tab PO SCH (10:46)
[2019-02-12] MEDS: Ketotifen 0.025% Ophth Soln 5 ML Bottle EYEBOTH SCH ×2 (10:47→20:01)
[2019-02-12] MEDS: traMADol 50 MG Tab PO SCH ×2 (10:57→20:05)
[2019-02-12] MEDS: CERAMIDES TP SCH ×2 (10:58→20:00)
[2019-02-12] MEDS: Sodium Chloride 0.9% Inhalation Soln 3 ML Neb INH SCH (11:05)
[2019-02-12] MEDS: PHENobarbital 32.4 MG Tab PO SCH ×2 (11:20→20:04)
[2019-02-12] MEDS: risperiDONE 1 MG Tab PO SCH (11:21)
[2019-02-12] MEDS: Donepezil 10 MG Tab PO SCH (20:00)
[2019-02-12] MEDS: Tamsulosin 0.4 MG Cap.ER PO SCH (20:01)
[2019-02-12] MEDS: Levofloxacin/Dextrose 5%-Water 500 MG in Premix Bag 1 BAG IV SCH (21:25)
[2019-02-12] MEDS: Sodium Chloride 0.9% 10 ML Syringe FLUSH PRN (21:27)
[2019-02-12] MEDS: Enoxaparin 40 MG/0.4 ML Syringe SUBCUT SCH (21:29)
[2019-02-13] MEDS: Pantoprazole 40 MG Tab.CR PO SCH (06:23)
[2019-02-13] MEDS: ALBUTEROL NEB SCH ×2 (06:44→11:31)
[2019-02-13] MEDS: IPRATROPIUM NEB SCH ×2 (06:44→11:31)
--- NOTE | 2019-02-13 08:22 | PCM.DCSUM1 ---
Discharge Summary - Hospital Course Free Text/Narrative:: Emir is feeling much better this morning. He's been a little crabby, but complains of no pain and no report of any fever. Diagnosis: Stroke: No - Discharge Data Discharge Date: 02/13/19 Discharge Disposition: DC/Tfer to SNF 03 Condition: Good - Referral to Home Health Primary Care Physician: Ottoniel Diaz MD - Discharge Diagnosis/Problem(s) (1) Pneumonia SNOMED Code(s): 679357724 ICD Code: J18.9 - PNEUMONIA, UNSPECIFIED ORGANISM Status: Acute Current Visit: Yes Qualifiers: Pneumonia type: aspiration pneumonia Laterality: unspecified laterality Lung location: unspecified part of lung (2) HTN (hypertension) SNOMED Code(s): 80356455 ICD Code: I10 - ESSENTIAL (PRIMARY) HYPERTENSION Status: Acute Current Visit: Yes Qualifiers: Hypertension type: essential hypertension Qualified Code(s): I10 - Essential (primary) hypertension (3) GERD (gastroesophageal reflux disease) SNOMED Code(s): 558843100 ICD Code: K21.9 - GASTRO-ESOPHAGEAL REFLUX DISEASE WITHOUT ESOPHAGITIS Status: Acute Current Visit: Yes Qualifiers: Esophagitis presence: esophagitis presence not specified Qualified Code(s) : K21.9 - Gastro-esophageal reflux disease without esophagitis (4) Palliative care encounter SNOMED Code(s): 778017007 ICD Code: Z51.5 - ENCOUNTER FOR PALLIATIVE CARE Status: Acute Current Visit: Yes (5) Dementia SNOMED Code(s): 75942687 ICD Code: F03.90 - UNSPECIFIED DEMENTIA WITHOUT BEHAVIORAL DISTURBANCE Status: Acute Current Visit: No Problem Details: Qualifiers: Dementia type: Alzheimer's disease (6) GERD (gastroesophageal reflux disease) SNOMED Code(s): 901836712 ICD Code: K21.9 - GASTRO-ESOPHAGEAL REFLUX DISEASE WITHOUT ESOPHAGITIS Status: Acute Current Visit: No Problem Details: Patient on IV PPI currently. Qualifiers: Esophagitis presence: without esophagitis Qualified Code(s): K21.9 - Gastro -esophageal reflux disease without esophagitis (7) COPD exacerbation SNOMED Code(s): 130448043 ICD Code: J44.1 - CHRONIC OBSTRUCTIVE PULMONARY DISEASE W (ACUTE) EXACERBATION Status: Acute Current Visit: Yes - Patient Summary/Data Operative Procedure(s) Performed: None - Patient Instructions Diet: Heart Healthy Diet Notify Provider of: Fever - Discharge Plan Prescriptions/Med Rec: Levofloxacin [Levaquin] 500 mg PO DAILY #7 tablet predniSONE 20 mg PO WITHBREAKFAST #5 tab Home Medications: Home Meds Albuterol [IJD: Ventolin HFA] 2 puff INH Q4HR PRN 11/19/16 [History] Donepezil HCl [Aricept] 10 mg PO BEDTIME 11/19/16 [History] Loperamide [Imodium] 2 mg PO ASDIRECTED PRN MDD 4 11/19/16 [History] Omeprazole 20 mg PO DAILY 11/19/16 [History] PHENobarbitaL [Phenobarbital] 97.2 mg PO BID 11/19/16 [History] Potassium Chloride [Klor-Con 10] 20 meq PO DAILY 11/19/16 [History] Memantine HCl 10 mg PO BID 10/12/17 [History] Tamsulosin [Flomax] 0.4 mg PO BEDTIME 10/12/17 [History] risperiDONE 0.5 mg PO 08 10/12/17 [History] traMADol [Ultram] 25 mg PO Q6H PRN 10/12/17 [History] Albuterol/Ipratropium [DuoNeb 3.0-0.5 MG/3 ML] 1 vial INH Q6H PRN 09/17/18 [ History] Aspirin [Adult Low Dose Aspirin EC] 81 mg PO DAILY 09/17/18 [History] Cholecalciferol (Vitamin D3) [Vitamin D3] 1,000 unit PO DAILY 09/17/18 [History] Citalopram Hydrobromide [Celexa] 20 mg PO DAILY 09/17/18 [History] Lissie Starch 1 applic TOP ASDIRECTED PRN 09/17/18 [History] Docusate Sodium [Colace] 100 mg PO DAILY 09/17/18 [History] Gabapentin [Neurontin] 100 mg PO TID 09/17/18 [History] Levothyroxine [Synthroid] 100 mcg PO SUTUTH 09/17/18 [History] Magnesium Hydroxide [Milk of Magnesia] 30 ml PO DAILY PRN 09/17/18 [History] Multivitamin [Multivitamins] 1 cap PO DAILY 09/17/18 [History] Rosuvastatin [Crestor] 10 mg PO BEDTIME 09/17/18 [History] bisacodyL [Dulcolax] 10 mg RC Q3D PRN 09/17/18 [History] guaiFENesin 10 ml PO Q4H PRN 09/17/18 [History] risperiDONE 1 mg PO 12 09/17/18 [History] traMADol [Ultram] 25 mg PO BID 09/17/18 [History] .Saline Solution 0.9% 1 vial INH DAILY 02/11/19 [History] Albuterol/Ipratropium [DuoNeb 3.0-0.5 MG/3 ML] 3 ml INH TID 02/11/19 [History] Ceramides 1,3,6-11 [Cerave] 1 applic TOP BID 02/11/19 [History] Eucalyptus/Menthol [Cough Drops] 1 each PO ASDIRECTED PRN 02/11/19 [History] Furosemide [Lasix] 20 mg PO DAILY 02/11/19 [History] Ketotifen [Ketotifen 0.025% Ophth Soln] 1 drop EYEBOTH BID 02/11/19 [History] Levothyroxine Sodium [Synthroid] 150 mcg PO MOWEFRSA 02/11/19 [History] Polyethylene Glycol 3350 [MiraLAX] 17 gm PO DAILY 02/11/19 [History] guaiFENesin [Mucinex] 600 mg PO DAILY 02/11/19 [History] guaiFENesin [Mucinex] 600 mg PO DAILY PRN 02/11/19 [History] risperiDONE [Risperdal] 1.5 mg PO 18 02/11/19 [History] Levofloxacin [Levaquin] 500 mg PO DAILY #7 tablet 02/13/19 [Rx] predniSONE 20 mg PO WITHBREAKFAST #5 tab 02/13/19 [Rx] Patient Handouts: Abdominal or Pelvic Ultrasound, [id number], Echocardiogram Forms: ED Department Discharge Referrals: Ottoniel Diaz MD [Primary Care Provider] - - Discharge Summary/Plan Comment DC Time >30 min.: Yes - General Info Date of Service: 02/13/19 Subjective Update: Emir has improved since yesterday.He is more awake,alert. No fever.Still needing O2 supplementation,however. Functional Status: Reports: Pain Controlled - Review of Systems General: Reports: No Symptoms HEENT: Reports: No Symptoms Pulmonary: Reports: No Symptoms Cardiovascular: Reports: No Symptoms Gastrointestinal: Reports: No Symptoms - Patient Data Vitals - Most Recent: Last Vital Signs Temp 97.5 F 02/13/19 04:00 Pulse 76 02/13/19 04:00 Resp 20 02/13/19 04:00 BP 102/62 02/13/19 04:00 Pulse Ox 95 02/13/19 04:00 Weight - Most Recent: 107.501 kg EDY Results - Last 24 hrs: Microbiology 02/10/19 21:58 Aerobic Blood Culture - Preliminary Blood - Venous NO GROWTH AFTER 2 DAYS Anaerobic Blood Culture - Preliminary NO GROWTH AFTER 2 DAYS 02/10/19 22:05 Aerobic Blood Culture - Preliminary Blood - Venous - Lab Draw NO GROWTH AFTER 2 DAYS Anaerobic Blood Culture - Preliminary NO GROWTH AFTER 2 DAYS Med Orders - Current: Current Medications Acetaminophen (Tylenol) 650 mg RECTAL Q4H PRN PRN Reason: Mild pain/fever Last Admin: 02/11/19 01:33 Dose: 650 mg Albuterol (Proventil Neb Soln) 2.5 mg NEB Q2H PRN PRN Reason: Shortness Of Breath/wheezing Albuterol/Ipratropium (Duoneb 3.0-0.5 Mg/3 Ml) 3 ml NEB QIDRT [facility] Last Admin: 02/13/19 06:44 Dose: 3 ml Cholecalciferol (Vitamin D3) 25 mcg PO DAILY [facility] Last Admin: 02/12/19 10:45 Dose: 25 mcg Citalopram Hydrobromide (Celexa) 20 mg PO DAILY [facility] Last Admin: 02/12/19 10:46 Dose: 20 mg Docusate Sodium (Colace) 100 mg PO DAILY [facility] Last Admin: 02/12/19 10:45 Dose: 100 mg Donepezil HCl (Aricept) 10 mg PO BEDTIME [facility] Last Admin: 02/12/19 20:00 Dose: 10 mg Enoxaparin Sodium (Lovenox) 40 mg SUBCUT Q24H [facility] Last Admin: 02/12/19 21:29 Dose: 40 mg Guaifenesin (Robitussin) 200 mg PO Q4H PRN PRN Reason: Cough Levofloxacin/Dextrose 500 mg/ (Premix) 100 mls @ 100 mls/hr IV Q24H [facility] Last Admin: 02/12/19 21:25 Dose: 100 mls/hr Ketotifen Fumarate (Ketotifen 0.025% Ophth Soln) 0 ml EYEBOTH BID [facility] Last Admin: 02/12/19 20:01 Dose: 1 drop Magnesium Hydroxide (Milk Of Magnesia) 30 ml PO DAILY PRN PRN Reason: Constipation Memantine (Namenda) 10 mg PO BID [facility] Last Admin: 02/12/19 20:01 Dose: 10 mg Miscellaneous Medication (Cerave) 0 gm TP BID [facility] Last Admin: 02/12/19 20:00 Dose: 1 applic Multivitamins/Minerals (Thera M Plus) 1 tab PO DAILY [facility] Last Admin: 02/12/19 10:45 Dose: 1 tab Lissie Starch *Ptom 1 applic TOP ASDIRECTED PRN PRN Reason: Rash Last Admin: 02/12/19 10:46 Dose: 1 applic Non-Formulary Medication (Eucalyptus/Menthol [Cough Drops]) 1 each PO ASDIRECTED PRN PRN Reason: Cough Ondansetron HCl (Zofran) 4 mg IV Q4H PRN PRN Reason: Nausea/Vomiting Pantoprazole Sodium (Protonix) 40 mg PO 0600 [facility] Last Admin: 02/13/19 06:23 Dose: 40 mg Phenobarbital (Phenobarbital) 97.2 mg PO BID [facility] Last Admin: 02/12/19 20:04 Dose: 97.2 mg Risperidone (Risperidal) 1 mg PO 12 [facility] Last Admin: 02/12/19 11:21 Dose: 1 mg Risperidone (Risperidal) 1.5 mg PO 18 [facility] Last Admin: 02/12/19 17:55 Dose: 1.5 mg Risperidone (Risperidal) 0.5 mg PO 08 [facility] Last Admin: 02/12/19 10:44 Dose: 0.5 mg Sodium Chloride (Saline Flush) 10 ml FLUSH ASDIRECTED PRN PRN Reason: Keep Vein Open Last Admin: 02/12/19 21:27 Dose: 10 ml Sodium Chloride (Sodium Chloride 0.9%) 3 ml INH DAILY [facility] Last Admin: 02/12/19 11:05 Dose: 3 ml Tamsulosin HCl (Flomax) 0.4 mg PO BEDTIME [facility] Last Admin: 02/12/19 20:01 Dose: 0.4 mg Tramadol HCl (Ultram) 25 mg PO BID [facility] Last Admin: 02/12/19 20:05 Dose: 25 mg Tramadol HCl (Ultram) 25 mg PO Q6H PRN PRN Reason: Pain Discontinued Medications Enoxaparin Sodium (Lovenox) 40 mg SUBCUT Q24H [facility] Last Admin: 02/11/19 01:33 Dose: 40 mg Sodium Chloride (Normal Saline) 1,000 mls @ 125 mls/hr IV ASDIRECTED [facility] Last Admin: 02/11/19 00:55 Dose: 125 mls/hr Levofloxacin/Dextrose 500 mg/ (Premix) 100 mls @ 100 mls/hr IV ONETIME ONE Stop: 02/11/19 02:29 Last Admin: 02/11/19 01:25 Dose: 100 mls/hr Sodium Chloride (Normal Saline) 1,000 mls @ 50 mls/hr IV ASDIRECTED [facility] Last Admin: 02/12/19 06:30 Dose: 50 mls/hr Ketorolac Tromethamine (Toradol) 15 mg IVPUSH ONETIME ONE Stop: 02/10/19 23:27 Last Admin: 02/10/19 23:30 Dose: 15 mg Omeprazole 20 Mg Cap (*Ptom) 20 mg PO 0600 [facility] Last Admin: 02/11/19 13:04 Dose: Not Given Risperidone (Risperidal) 1.5 mg PO 18 [facility] Risperidone (Risperidal) 0.5 mg PO 08 [facility] - Exam Quality Assessment: Reports: Supplemental Oxygen General: Reports: Alert, Oriented, Cooperative Neck: Reports: Supple Lungs: Reports: Clear to Auscultation, Normal Respiratory Effort Cardiovascular: Reports: Regular Rate GI/Abdominal Exam: Normal Bowel Sounds Back Exam: Reports: Normal Inspection
[2019-02-13] MEDS: Ketotifen 0.025% Ophth Soln 5 ML Bottle EYEBOTH SCH (08:36)
[2019-02-13] MEDS: Sodium Chloride 0.9% Inhalation Soln 3 ML Neb INH SCH (08:36)
[2019-02-13] MEDS: CERAMIDES TP SCH (08:36)
[2019-02-13] MEDS: Citalopram 20 MG Tab PO SCH (11:30)
[2019-02-13] MEDS: Docusate Sodium 100 MG Cap PO SCH (11:30)
[2019-02-13] MEDS: risperiDONE 0.5 MG Tab PO SCH (11:30)
[2019-02-13] MEDS: Memantine 10 MG Tab PO SCH (11:31)
[2019-02-13] MEDS: PHENobarbital 32.4 MG Tab PO SCH (11:31)
[2019-02-13] MEDS: Cholecalciferol (Vitamin D3) 25 MCG Tab PO SCH (11:31)
[2019-02-13] MEDS: traMADol 50 MG Tab PO SCH (11:31)
[2019-02-13] MEDS: Multivitamins with Iron/Calcium/Folic Acid/Minerals Tab PO SCH (11:31)
== END 2019-02-13 11:00 | DRG 871 ==
LOC: FB.ED 21:30 → FB.MS 02-11 00:57 → OBSVTOIN 02-11 09:57
PROVIDERS: ADMIT Emergency Medicine; ATTEND Family Medicine
DX: A41.9 Sepsis, unspecified organism (principal); J18.9 Pneumonia, unspecified organism; J69.0 Pneumonitis due to inhalation of food and vomit; Z87.01 Personal history of pneumonia (recurrent); J44.1 Chronic obstructive pulmonary disease with (acute) exacerbation; J44.0 Chronic obstructive pulmonary disease with (acute) lower respiratory infection; K21.9 Gastro-esophageal reflux disease without esophagitis; Z51.5 Encounter for palliative care; G30.9 Alzheimer's disease, unspecified; F02.80 Dementia in other diseases classified elsewhere, unspecified severity, without behavioral disturbance, psychotic disturbance, mood disturbance, and anxiety; N40.1 Benign prostatic hyperplasia with lower urinary tract symptoms; N39.498 Other specified urinary incontinence; C61 Malignant neoplasm of prostate; I11.0 Hypertensive heart disease with heart failure; E03.9 Hypothyroidism, unspecified; I50.9 Heart failure, unspecified; H91.90 Unspecified hearing loss, unspecified ear; H54.7 Unspecified visual loss; E78.00 Pure hypercholesterolemia, unspecified; S32.049S Unspecified fracture of fourth lumbar vertebra, sequela; X58.XXXS Exposure to other specified factors, sequela; G40.909 Epilepsy, unspecified, not intractable, without status epilepticus; Z88.1 Allergy status to other antibiotic agents; Z88.5 Allergy status to narcotic agent; K59.09 Other constipation; Z79.890 Hormone replacement therapy; N40.0 Benign prostatic hyperplasia without lower urinary tract symptoms; F41.9 Anxiety disorder, unspecified; F32.9 Major depressive disorder, single episode, unspecified; E66.9 Obesity, unspecified; Z79.51 Long term (current) use of inhaled steroids; Z79.899 Other long term (current) drug therapy; Z79.82 Long term (current) use of aspirin; Z68.36 Body mass index [BMI] 36.0-36.9, adult; Z79.2 Long term (current) use of antibiotics; Z99.81 Dependence on supplemental oxygen; Z88.8 Allergy status to other drugs, medicaments and biological substances
CPT/HCPCS: 36415 ×2; 51701; 71045; 80048; 80053; 81001; 83605; 83880; 85025 ×2; 87040 ×2; 87804 ×2; 94760; 99285; A9270; J1650; J1885; J1956; J7030 ×2; 94640; 99284; J7620-GY